=== PATIENT | female | born 1945 | race Two or more races ===

== ENCOUNTER 2024-03-03 09:29 | Inpatient (IN) | payer OTHER, SELFPAY ==
[2024-03-03] VITALS (11 sets, daily range): BP systolic 113–194; BP diastolic 68–91; BMI 23.0; BMI 21.9
[2024-03-03 07:30] LABS: Glucose - Point of Care 141 mg/dl (70-99)
--- NOTE | 2024-03-03 07:42 | ED.CVA ---
History of Present Illness
General
Chief Complaint: CVA/TIA Symptoms
Source: patient, spouse and family (son)
Exam Limitations: none
Time Seen by Provider: 03/03/24 07:40
Nursing documentation reviewed up to this point in time: agreed with
Onset of Stroke Symptoms
Onset of symptoms known: Yes
Date of onset of symptoms: 03/03/24
Date last time pt seen normal: 03/02/24
History of Present Illness
History of Present Illness:
78-year-old female presents emergency department after being unable to get out of bed. She woke up at 6:45 AM, with left-sided weakness and family reporting slurred speech. She does not take any blood thinners.
Past History
Past History
ED Past Medical History: HTN, Hypercholesterolemia and NIDDM
ED Past Surgical History: and Orthopedic (Laminectomy)
Social History
Tobacco: Non-smoker
Alcohol: None
Drug: None
Personal:
Living: with family
Review of Systems
Review of Systems
Allergies reviewed?: Yes
All Other Systems: Not applicable
Constitutional: Reports no symptoms
Phy Exam
Physical Exam
Physical Exam:
Physical Exam
General: no apparent distress, not acutely ill
Neck: supple. no meningeal signs. normal posterior pharynx
Heart: s1/s2 regular rate and rhythm, no murmur. equal radial
pulses.
HEENT: Pupils equal round reactive to light, EOMI, left facial droop
Lungs: no acute respiratory distress. clear bilaterally
Abdomen: normal bowel sounds. not tender. no CVAT
Neuro: alert and oriented. no focal neurological deficits cranial nerves II through XII intact, except left facial droop, 7th cranial nerve deficit
Skin: no rash
Psychiatric: well kept. interactive and cooperative
Extremities: no edema. no calf tenderness. negative homans. good distal pulses
Scores
NIH Stroke Score
Level of Consciousness: 0 - Alert
LOC Questions: 0-Answers both correctly
LOC Commands: 0-Performs both correctly
Best Horizontal Gaze: 0-Normal
Visual Scott: 0=Normal, no visual loss
Facial Palsy: 2=Partial paralysis
Motor - Right Arm: 0=No drift 10 seconds
Motor - Left Arm: 1=Drift < 10 seconds
Motor - Right Le-No drift 5 seconds
Motor - Left Le-Drift < 5 seconds
Limb Ataxia: 0-Absent
Sensation: 0-Normal
Best Language: 0-No aphasia
Dysarthria: 1-Mild slurring
Extinction and Inattention: 0-No abnormality
Total Score:: 5
Course
Orders/Labs/Results
Orders:
Orders
03/03/24 07:30
CT Head W/o Cont STROKE ALERT Urgent
Reason For Exam: stroke alert
03/03/24 07:40
CT Head/Neck Ang STROKE ALERT Urgent
Comment:
Reason For Exam: left facial droop left side weakness
Cardiac Monitoring- Treatment ONCE
IV Insert/Care/Rem.- Treatment PRN
Pulse Ox/cont/shift [RESP] Stat
Quantity: 1
03/03/24 07:41
Electrocardiogram (*1) Stat
Reason for Study: Other
Other Reason for Exam: neuro symptoms
EKG- Treatment ONCE
03/03/24 08:01
Complete Blood Count/With Diff Urgent
Comprehensive Metabolic Panel Urgent
PTT Urgent
Prothrombin Time Urgent
03/03/24 08:18
Aspirin Chewable [Low Strength Aspirin] 324 mg PO NOW STA
Clopidogrel Bisulfate [Plavix] 300 mg PO NOW STA
03/03/24 08:35
Admit/Transfer Patient As Directed
Co-Sign Provider:
Level of Care: Inpatient admission
Assign to:: Telemetry
Physician / Group: Hospitalist
Diagnosis: CVA
Reason for Telemetry: CVA/TIA
Date to Stop Telemetry: 03/06/24
Time to Stop Telemetry: 11:00
Reason for Hospitalization: .
Expected length of stay greater than two midnights?: Yes
ELOS- Estimated Length of Stay in days: 3
I certify the patient meets the requirements for IP care: Yes
03/03/24 08:36
Code Status As Directed
Resuscitation Status: Full Code
03/03/24 10:51
Consult Neurology [NEUROLOGY CONSULT] Routine
Consulting Provider: Tommy Posey
Was physician already notified: Yes
Reason for consult: CVA
Speech Therapy Eval & Treat Routine
DX Deep Vein Thrombosis Video Routine
03/03/24 20:00
Heparin 5,000 units SC Q12
03/04/24 06:00
Ot Eval And Treat IN AM
Pt Eval And Treat IN AM
Activity Level: Ambulate
03/06/24 11:00
DC Protocol for Telemetry ONCE
Abnormal Lab Results
03/03/24 03/03/24 03/03/24
07:29 08:01 08:03
Hct 35.1 L %
(37.0-47.0)
MPV 11.1 H fL
(7.4-10.4)
Glucose 127 H mg/dl
(70-99)
POC Glucose 141 H mg/dl 137 H mg/dl
(70-99) (70-99)
03/03/24 08:01
03/03/24 08:01
Vital Signs
Initial and Last Documented VS:
Initial Vital Signs
Pulse Resp BP Pulse Ox
67 17 181/91 97
03/03/24 07:30 03/03/24 07:30 03/03/24 07:30 03/03/24 07:30
Last Documented Vital Signs
Temp Pulse Resp BP Pulse Ox
97.5 F 79 18 156/72 99
03/03/24 14:55 03/03/24 14:55 03/03/24 14:55 03/03/24 14:55 03/03/24 14:55
MDM/Problems Addressed
Differential Diagnosis Includes:
CVA, TIA, intracranial hemorrhage
MDM/Problems Addressed:
78-year-old female seen on stroke alert, symptoms resolved. Patient seen by Dr. Posey, who recommends aspirin and Plavix treatment. Admit to hospitalist for further workup.
Chronic conditions affecting care: DM and HTN
Acute Exacerbation and/or Progression of Chronic Illness: DM and HTN
*Radiology
Radiology exam reviewed: radiology read reviewed (CT head and angiography, no acute findings)
*Pulse Oximetry
Patient hypoxic: no
*EKG
Interpreted by ED Provider?: Yes
EKG Intrepretation Date: 03/03/24
EKG Intrepretation Time: 08:12
Interpretation: normal
Comparison EKG: no comparison EKG present
Heart Rate: 67
Rate: normal
Rhythm: sinus
Freeman: normal axis
Interval: normal interval
QRS Pattern: normal QRS
Ischemia: no ischemia
*Wax Machine Operator Interpretation
Rate: normal
Interpretation: normal
Heart Rate: 66
Rhythm: sinus
*Critical Care Note
Total Time (30-74mins, 75-104mins- exclusive of procedures): 30
comment:
Critical care statement: A total of 30 minutes of critical care time was provided for this patient. This includes management of unstable vital signs, evaluation of the patient at bedside, reviewing the patient's pertinent medical records, discussion
with consultants, review of old EKGs and review of pertinent medical records. This time with separate from time utilized to perform the aforementioned documented procedures
Data Reviewed
Prescriptions/Medications Considered But Not Given:
TNK not indicated
Patient Management
Social determinants of health affecting care: Living situation
Discussion with other providers: Family Reunification Specialist (Neurology)
Escalation/DeEscalation of care consider admission/obs:
Admit not indicated
ED Attending Note
-
Portions of this chart may have been created with voice recognition software.� Occasional wrong word or��sound alike� substitutions may have occurred due to the inherent limitations of voice recognition software.
Discharge Plan
Departure
Patient Disposition: Admit
Date of Disposition: 03/03/24
Time of Disposition: :23
Admit to: Telemetry
Presentation/result/management discussed w/ accepting MD/DO: Hospitalist
Patient with high blood pressure during this ER visit?: Yes
Condition: Good
Discharge Problem:
TIA (transient ischemic attack)
Interventions
Interventions:
*Risk Screen - Suicide Last Done: 03/03/24 08:07
*General Assessment Last Done: 03/03/24 08:07
*Neglect/Abuse Screening Last Done: 03/03/24 08:07
ED- Fall Risk Assessment Last Done: 03/03/24 10:38
*ED COVID-19 Vaccine History Last Done: 03/03/24 08:07
*Nursing Disposition Last Done: 03/03/24 10:38
ED- Pulmonary Assessment Last Done: 03/03/24 08:11
ED- Neurological Assessment Last Done: 03/03/24 08:11
ED- Cardiac Assessment Last Done: 03/03/24 08:11
ED Swallowing Screen Last Done: 03/03/24 08:24
Discharge Date and Time
Discharge Date/Time: 03/03/24 10:39
[2024-03-03 08:09] LABS: Glucose - Point of Care 137 mg/dl (70-99)
[2024-03-03 08:11] LABS: % Basophils 0.2 % (0-2); % Eosinophils 1.6 % (0-6); % Immature Granulocytes 0.2 % (0-0.5); % Lymphocytes 36.4 % (20.5-51.1); % Monocytes 8.4 % (1.7-9.3); % Neutrophils 53.2 % (42.2-75.2); Absolute Eosinophils 0.1 10^3/uL (0-0.7); Absolute Lymphocytes 2.3 10^3/uL (1.2-3.4); Absolute Monocytes 0.5 10^3/uL (0.1-0.6); Absolute Neutrophils 3.4 10^3/uL (1.4-6.5); Hematocrit 35.1 % (37.0-47.0); Mean Corp Hgb Conc. 34.2 g/dL (33.0-37.0); Mean Corpuscular Hgb 28.6 pg (27.0-31.0); Mean Corpuscular Volume 83.6 fL (81.0-99.0); Mean Platelet Volume 11.1 fL (7.4-10.4); Nucleated Red Blood Cells % 0 %; Platelet Count 190 10^3/uL (130-400); Red Cell Dist. Width 13.1 % (11.5-14.5); White Blood Cell Count 6.3 10^3/uL (4.8-10.8)
[2024-03-03 08:21] LABS: INR 1.02; PT 13.2 Sec (11.4-14.6)
[2024-03-03 08:22] LABS: APTT 31.8 Sec (23.4-35.0)
[2024-03-03 08:24] LABS: ALT (SGPT) 13 U/L (0-35); AST (SGOT) 21 U/L (14-36); Alkaline Phosphatase 50 U/L (38-126); Blood Urea Nitrogen 17 mg/dl (7-17); Carbon Dioxide 29 mmol/L (22-30); Chloride 102 mmol/L (98-107); Estimated Creatinine Clearance 36 ml/min; Glucose 127 mg/dl (70-99); Potassium 4.3 mmol/L (3.5-5.1); Sodium 138 mmol/L (135-145); Total Bilirubin 0.3 mg/dl (0.2-1.3); Total Protein 6.7 g/dl (6.3-8.2); eGFR 58.02
[2024-03-03] MEDS: LOW STRENGTH ASPIRIN 324 MG PO (08:29)
[2024-03-03] MEDS: PLAVIX 300 MG PO (08:29)
--- NOTE | 2024-03-03 08:35 | HPS.HSE ---
Family Physician
-
Family Physician:
Chief Complaint
-
left sided weakness
History of Present Illness
78 years old female who woke up this morning with left-sided weakness. She experienced the weakness in the arm and the leg. She had difficulty ambulating. Her immediately gave her 4 tablets of aspirin 81 mg. She was brought into the
hospital. Scan of the head did not show acute finding. She was evaluated by neurologist and her symptoms subsided and was given loading dose of aspirin and Plavix. Neurologist recommended MRI of the head.
Patient was feeling fine yesterday before sleep. No headache. No fever or chills. She takes baby aspirin daily.
Medical History
Past Medical History
Past Medical History: Reports Other (Diabetes, depression, generalized anxiety disorder, hyperlipidemia, hypertension, back pain status post-laminectomy, chronic kidney disease stage II)
Past Surgical History: Reports Other (No recent major surgery)
Social History
Tobacco: Non-smoker
Drug: None
Personal:
Living: With Family
Employment: Not Employed
Family History
Family History: Not pertinent
Allergies / Home Medications
Allergies reflects when Allergies were last updated in [facility].
Home Medications with original date entered in [facility]
Allergy/Medication List:
Allergies
Allergy/AdvReac Type Severity Reaction Status Date / Time
No Known Allergies Allergy Unverified 03/03/24 07:29
Review of Systems
-
History Source: Patient
A 12 point ROS was completed and negative except as noted: Yes
Constitutional: Denies Fever or Chills
EENT: Denies Sore Throat
Respiratory: Denies Cough
Cardiac: Denies Chest Pain
Abdomen/GI: Denies Abdominal Pain
: Denies Dysuria
Musculoskeletal: Denies Joint Pain
Skin: Denies Itching
Neurological: Denies Headache
Endocrine: Denies Temp Intolerance
Hematologic/Lymphatic: Denies Bruising
Psych: Denies Panic Disorder
Physical Exam
Vital Signs
Vital Signs
Pulse Resp BP Pulse Ox
70 16 183/81 98
03/03/24 08:07 03/03/24 08:07 03/03/24 08:07 03/03/24 08:11
Physical Exam
General: Well Nourished, No Apparent Distress and Comfortable
HEENT: Anicteric, Moist mucous membranes and Atraumatic
Respiratory: Clear
Cardiac: S1/S2 and Regular Rhythm
GI: Soft and Non Tender
Rectal: No Maroon Stools
Genito-urinary: Clear Urine and No costovertebral tender
Musculoskeletal: No Clubbing, No Cyanosis and No Edema
Neuro: AO x 3; No Slurred Speech, Facial Droop or Tremors
Psych: Calm and Intact Judgment/Insight
Laboratory Results
-
03/03/24 08:01
03/03/24 08:01
Laboratory Results
PT 13.2 Sec (11.4-14.6) 03/03/24 08:01
INR 1.02 03/03/24 08:01
APTT 31.8 Sec (23.4-35.0) 03/03/24 08:01
Total Bilirubin 0.3 mg/dl (0.2-1.3) 03/03/24 08:01
AST 21 U/L (14-36) 03/03/24 08:01
ALT 13 U/L (0-35) 03/03/24 08:01
Alkaline Phosphatase 50 U/L (38-126) 03/03/24 08:01
Impression/Plan
-
78 years old female presented with left-sided weakness
# Left-sided weakness. Patient woke up with left-sided weakness, unknown duration
Symptoms seems to resolve
Admit the patient to telemetry
Discussed with neurologist, no indication for thrombolytic, continue with dual antiplatelet therapy, follow-up with MRI study
Order MRI
Order echocardiogram
Neurochecks
Permissive hypertension for 24-hour
Check lipid panel, starting on Lipitor. She takes simvastatin at home
Telemetry monitoring
Consult to speech/PT/OT
Appreciate neurology input
# Primary hypertension
Patient takes atenolol at home.
Will add as needed hydralazine for systolic blood pressure more than 180. Permissive hypertension for 24 hours
# Diabetes. She takes metformin and Invokana.
Will continue with metformin. Check hemoglobin A1c
Add insulin sliding scale
# History of depression/anxiety
Continue with Risperdal, 1 mg at night. Her son is pharmacist, reviewed medications with him
Continue with Zoloft
# History of chronic kidney disease stage II
Monitor renal function
# DVT prophylaxis, subcu heparin
Total time spent to see the patient, examine the patient, review data and lab results, and discuss the treatment plan with patient, family, neurologist, ER doctor, and nurse around 75 minutes
--- NOTE | 2024-03-03 10:24 | CON.NEURO4 ---
Consultation - Neurology 4
-
CONSULTING PHYSICIAN: Tommy Posey MD (Neurology)
REFERRING PHYSICIAN: Hospitalist
DICTATED BY: Tommy Posey MD
DATE/TIME OF REQUEST: March 03, 2024
DATE/TIME OF CONSULTATION: March 03, 2024 0830
Reason for Consultation: Left-sided weakness
History of Present Illness:
This is a 78 year old right handed female who has presented to the hospital with (chief complaint) left-sided weakness. Patient's symptoms began when she woke up (time) ago, and had left-sided weakness arm and her leg. She had difficulty sitting
and standing up. Her gave her 4 tablets of aspirin 81 mg. At the time of arrival she had left-sided weakness of the left arm and left leg that was resolving.
She was asymptomatic the night before.
No history of falls or head injuries no loss conscious no seizures. No difficulty speaking swallowing.
Past Medical History: Hypertension non-insulin diabetes hypercholesterolemia
Surgical History: lumbar laminectomy
Family History: Noncontributory
Social History: Lives at home with her son does not smoke use alcohol
Allergies: None
Home Medications: Aspirin
Review of Symptoms:
Patient denies any fever, headache, chest pain, shortness of breath, GI or symptoms.
�Per the HPI.�All systems are reviewed negative except above.
�
Vital Signs:
The patient has a Pulse 63 Resp15 BP 187/91 Pulse Ox98
Physical Exam:
The patient is afebrile, heart sounds S1 and S2 are (regular / irregular), and chest is clear to auscultation bilaterally.
NIH Stroke Scale (if applicable):
I performed the NIH stroke scale on the patient in the emergency room. The patient scored ( 4 ) points on the NIH stroke scale assessment, which were assigned as follows:
Neurologic Examination:
The patient is awake, alert and oriented x 3. (He/She) is able to follow commands and answer questions appropriately. There is no aphasia or dysarthria. On cranial nerve assessment, pupils are 3 mm bilateral, round and reactive to light and
accommodation. Visual wilkinson are full. Extraocular movements are intact. Facial sensations are intact and bilaterally symmetrical, there is no facial asymmetry. Hearing is intact bilaterally to normal conversation volume. Tongue palate and uvula
are midline. Sternocleidomastoid strengths are full bilaterally.
Motor strengths are 5/5 bilateral upper and lower extremities on medical research Saxman scale. There is LEFT pronator drift or involuntary movement noted. Deep tendon reflexes are 2+ bilateral upper and lower extremities and Babinski is absent
bilaterally. Sensations of pain, touch, temperature and vibration are intact and bilaterally symmetrical. There was no extinction noted on double simultaneous stimulation. Coordination is intact by finger to nose bilaterally. Romberg's and gait
were not tested as patient is bedbound
Lab Results: Addendum
Neuro Imaging: CT head shows normal pressure hydrocephalus. No acute lesions. Small vessel disease. Mild cortical atrophy
Impression:
Mrs. ATUL GILLETTE is a 78 year old F who has presented to the hospital with chief complaint of left-sided weakness).
Patient has the following risk factors for their symptoms: Hypertension diabetes
IV Tenecteplase/IAT candidacy: She is not a candidate as her symptoms are resolving, woke up with left sided weakness with unknown time of onset
Recommendations:
1. Aspirin 300 mg additional dose followed by daily aspirin 81 mg
2. Plavix 300 mg followed by daily Plavix 75 mg
3. Permissive hypertension
4. MRI head
5. PT/OT
6. Echocardiogram
7. Lipid profile
8. Lipitor 80 mg
Discussed patient care with: ED and hospitalist
Total Time Spent with Patient (in minutes): 30
Vital Signs and Labs
-
Vital Signs and Labs:
Vital Signs
Pulse Resp BP Pulse Ox
63 15 187/91 98
03/03/24 10:00 03/03/24 10:00 03/03/24 10:00 03/03/24 08:11
Lab Results
03/03/24 08:01
03/03/24 08:01
PT 13.2 Sec (11.4-14.6) 03/03/24 08:01
INR 1.02 03/03/24 08:01
APTT 31.8 Sec (23.4-35.0) 03/03/24 08:01
Sodium 138 mmol/L (135-145) 03/03/24 08:01
Potassium 4.3 mmol/L (3.5-5.1) 03/03/24 08:01
BUN 17 mg/dl (7-17) 03/03/24 08:01
Glucose 127 mg/dl (70-99) H 03/03/24 08:01
Calcium 10.0 mg/dl (8.4-10.2) 03/03/24 08:01
--- NOTE | 2024-03-03 14:00 | PTOTSP ---
ST Acute Care Evaluation
Pt currently presents with mild oropharyngeal and esophageal dysphagia characterized by reduced strength and sensation on L labial and buccal surfaces resulting in oral residue requiring prompts and compensatory strategies to clear as well as 1x
throat clearing event that could be indicative of reduced airway protection and 1x belching event that could indicate esophageal dysfunction.
Pt also demonstrates mild to moderate dysarthria. Pt denies any difficulties with receptive language, expressive language, or cognition - these areas should be continually monitored and assessed informally if needed.
Recommendations:
- Continue with regular solids, thin liquids, meds as tolerated.
- Aspiration precautions: HOB upright for ALL PO intake; small bites/sips; make pt aware of any labial spillage on L side; check for pocketing/oral clearance of L buccal cavity; encourage pt to use lingual sweep or liquid wash intermittently with
solid ingestion.
- ETL DEVELOPER to provide dysarthria tx while admitted.
- ETL DEVELOPER to monitored cognitive linguistic status and informally assess if needed.
- Pt to continue to receive ETL DEVELOPER services upon d/c at next level of care.
[2024-03-03] MEDS: TYLENOL 1000 MG PO (14:55)
[2024-03-03 17:25] LABS: Glucose - Point of Care 164 mg/dl (70-99)
[2024-03-03] MEDS: LIPITOR 40 MG PO (18:20)
[2024-03-03] MEDS: GLUCOPHAGE 1000 MG PO (18:21)
[2024-03-03] MEDS: NOVOLOG FLEXPEN-MODERATE RESISTANCE SC ×2 (18:21→18:23)
[2024-03-03] MEDS: TENORMIN 50 MG PO (20:26)
[2024-03-03] MEDS: ZOLOFT 50 MG PO (20:26)
[2024-03-03] MEDS: RISPERDAL 1 MG PO (20:27)
[2024-03-03] MEDS: HEPARIN 5000 UNITS SC (20:27)
[2024-03-03 21:05] LABS: Glucose - Point of Care 198 mg/dl (70-99)
[2024-03-04] VITALS (8 sets, daily range): BP systolic 134–195; BP diastolic 73–103; PULSE 77–80; O2SAT 100
[2024-03-04 07:44] LABS: Glucose - Point of Care 165 mg/dl (70-99)
[2024-03-04 08:14] LABS: Hematocrit 37.6 % (37.0-47.0); Hemoglobin 12.7 g/dL (12.0-16.0); Mean Corp Hgb Conc. 33.8 g/dL (33.0-37.0); Mean Corpuscular Hgb 28.2 pg (27.0-31.0); Mean Corpuscular Volume 83.6 fL (81.0-99.0); Mean Platelet Volume 10.8 fL (7.4-10.4); Platelet Count 184 10^3/uL (130-400); Red Cell Dist. Width 13.1 % (11.5-14.5); White Blood Cell Count 6.2 10^3/uL (4.8-10.8)
--- NOTE | 2024-03-04 08:30 | W.PN.NEURO.1 ---
Addendum entered and electronically signed by Kalpesh Person MD 03/04/24 13:22:
I saw and evaluated the patient I reviewed the note by Jennifer Chahal agree with the findings the following comments:
78-year-old woman with a past ministry of hypertension hyperlipidemia and diabetes presented to hospital with left-sided weakness dysarthria upon awakening. No acute events. Patient tired but with no acute complaints.
Neurologic examination significant for mild drowsiness, left facial droop and significant dysarthria, left arm weakness 3/5 left leg weakness 3/5
Brain MRI reviewed with a right-sided ischemic pontine stroke along with 2 areas of microhemorrhage in the tereso and cerebellar areas, moderate small vessel ischemic disease in the white matter of the hemispheres bilaterally
No significant posterior circulation atherosclerosis in the vertebral or basilar arteries noted
Assessment: Acute ischemic pontine stroke producing dysarthria left facial weakness left arm and leg weakness most likely due to small vessel disease given absence of significant large vessel atherosclerosis on CTA of the head and neck in
characteristic location disease ischemic stroke. Risk factors are hypertension hyperlipidemia and diabetes, moderate to good control of these but nonetheless are still risks for stroke.
Recommendations
-DAPT therapy aspirin and clopidogrel for total of 3 weeks and then switch to clopidogrel monotherapy
-Would increase the intensity of her statin a small amount, for home she could go home on 20 mg simvastatin. For now okay to continue on atorvastatin 40 mg daily while in hospital
-Speech therapy evaluation given dysarthria and possibly dysphagia although tolerating thin liquid diet
-PT/OT likely acute rehabilitation candidate
-Cardiac telemetry and check transthoracic echocardiogram
-Discussed discovery and prognosis with her and her family
-Goal normotension
-Aspiration precautions
Original Note:
Documented by User: Jennifer Liu NP 03/04/24 13:10
Today's Communication / Plan
-
.
Neuro Assessment/Plan
Assessment
This is a 78-year-old female who presented to on 03/03/24 with report of left-sided weakness and dysarthria upon awakening. CT head and CTA head/neck were obtained on arrival and were negative for any acute abnormalities. She was not a candidate
for TNK/IAT due to being outside of the time window and no LVO. She was taking aspirin 81mg daily.
-CT Head 03/03/24: There are no acute intracranial abnormalities. There is moderate diffuse cortical atrophy with moderate nonspecific white matter changes as described above.
-CTA head/neck 03/03/24: There is no evidence of major intracranial branch occlusion or significant stenosis in the major intracranial vessels. There is small volume partially calcific atherosclerotic plaque in the right common carotid artery, both
carotid bifurcations and the cavernous portions of both internal carotid arteries without significant stenosis
-MRI brain 03/04/24: Focal area of acute to subacute infarction involving the right anterolateral and superior tereso. Moderate diffuse atrophy. Moderate leukomalacia. 3 small foci of decreased T2 gradient-echo signal identified, one in the right
cerebellar hemisphere and 2 in the left side of the tereso. 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
I. Acute right pontine ischemic stroke; etiology likely small vessel disease.
II. Three small right cerebellar and left pontine foci of old microhemorrhage.
Plan
-Continue DAPT with aspirin 81mg and Plavix 75mg daily for 21 days. After 21 days, discontinue aspirin and continue Plavix 75mg daily only, indefinitely.
-Goal normotension as it is greater than 24 hours from symptom onset.
-TTE pending.
-LDL goal <70. LDL is 52. Home simvastatin 10mg daily increased to atorvastatin 40mg daily, unclear if this is of benefit as patient's LDL is at goal.
-Goal normoglycemia, hbA1c is 7.1.
-NIHSS and neurological checks per unit guidelines.
-Provide patient with a stroke education packet.
-PT/OT/ST evaluations.
-DVT prophylaxis.
-Patient should follow-up with Neurology as an outpatient in 4-6 weeks, may see the [facility] or one of the physicians.
Subjective/Objective
Subjective Data
Date of Service: March 04, 2024
No acute events overnight. Patient endorses ongoing left-sided weakness, mild tingling in her LLE, fatigue, and her endorses a speech disturbance. She denies any headache, dizziness, speech/swallowing difficulty, nausea, chest pain,
palpitations, and shortness of breath.
Objective Data
Vital Signs
Temp Pulse Resp BP Pulse Ox
97.7 F 75 16 186/95 98
03/04/24 07:00 03/04/24 07:00 03/04/24 07:00 03/04/24 07:00 03/04/24 07:00
Lab Results
03/04/24 07:51
PT 13.2 Sec (11.4-14.6) 03/03/24 08:01
INR 1.02 03/03/24 08:01
APTT 31.8 Sec (23.4-35.0) 03/03/24 08:01
Sodium 138 mmol/L (135-145) 03/03/24 08:01
Potassium 4.3 mmol/L (3.5-5.1) 03/03/24 08:01
BUN 17 mg/dl (7-17) 03/03/24 08:01
Glucose 127 mg/dl (70-99) H 03/03/24 08:01
Calcium 10.0 mg/dl (8.4-10.2) 03/03/24 08:01
Patient Allergies
No Known Allergies Allergy (Unverified 03/03/24 07:29)
LDL Level: Statin dose adjusted
Review of Systems
-
History Source: Patient
EENT: Negative Blurry Vision, Decreased Vision or Swallowing Difficulty
Respiratory: Negative Cough or Trouble Breathing
Cardiac: Negative Chest Pain or Palpitations
Abdomen/GI: Negative Nausea
Neuro: Weakness, Numbness and Speech Problem; Negative Dizzy, Headache, Ataxia or Tremors
Physical Exam
-
General: Well Developed, Well Nourished and No Apparent Distress
Eyes: No Ptosis and PERRLA
HEENT: Normocephalic and Atraumatic
Neck: Full Range of Motion
Respiratory: No Dyspnea
GI: Non-distended
Extremities: No Clubbing, No Cyanosis and No Edema
Psych: Depressed
Extended Neurological Exam
Mood & Affect: Depressed
Attention Span & Concentration: Awake, Alert and Interactive
Memory: Unremarkable (AAOx3) and Able to Recall
Tremor: Hand Tremor Absent and Head Tremor Absent
Involuntary Movement: None
Speech: Dysarthric
Cranial Nerve II: Left Eye: Pupillary Reactivity Unremarkable, Pupillary Size Unremarkable and Visual Scott Intact
Cranial Nerve II: Right Eye: Pupillary Reactivity Unremarkable, Pupillary Size Unremarkable and Visual Scott Intact
Cranial Nerves III, IV, : Extraocular Movement: Extraocular Movement Full in all Directions
Cranial Nerve V: Facial Sensation: Intact to Light Touch
Cranial Nerve VII: Facial Symmetry: Reduced (Left facial drooping)
Cranial Nerve VIII: Hearing: Unremarkable Hearing to Normal Conversational Volume
Cranial Nerves IX, X: Palate Movement: Palate Elevation Symmetric
Cranial Nerve XI: Shoulder Shrug: Unremarkable
Cranial Nerve XII: Tongue Protusion: Midline
Muscle Strength, Overall: Reduced on Left (LUE 3-/5, LLE 2+/5)
Muscle Bulk & Tone: Bulk Unremarkable and Reduced Tone (LUE)
Pronator Drift: Drift in Left Upper Extremity and Drift in Left Lower Extremity
Touch Sensation: Double Simultaneous Stimulation Unremarkable
Coordination: [id number] Testing Unremarkable
Babinski Sign: Absent Bilaterally
Gait & Station: Unable to Assess
Data Reviewed
-
CT-A: Report Reviewed and Image Reviewed
CT Head: Report Reviewed and Image Reviewed
MRI Head: Report Reviewed and Image Reviewed
Labs: Report Reviewed
Lipid Profile: Report Reviewed
HgbA1C: Report Reviewed
Reviewed with: Physician and Patient
Medications
-
Active Medications
Generic Name Dose Route Start Last Admin
Trade Name Freq PRN Reason Stop Dose Admin
Acetaminophen 1,000 mg 03/03/24 12:41 03/03/24 14:55
Acetaminophen 500 Mg Tablet PO 03/31/24 12:40 1,000 mg
Q6HPRN PRN Administration
mild to mod pain
Aspirin 81 mg 03/04/24 08:00
Aspirin 81 Mg Chewable Tablet PO 04/01/24 07:59
DAILY RIVKA
Atenolol 50 mg 03/03/24 22:00 03/03/24 20:26
Atenolol 50 Mg Tablet PO 03/31/24 21:59 50 mg
HS RIVKA Administration
Atorvastatin Calcium 40 mg 03/03/24 18:00 03/03/24 18:20
Atorvastatin (Lipitor) 40 Mg Tablet PO 03/31/24 17:59 40 mg
QPM RIVKA Administration
Clopidogrel Bisulfate 75 mg 03/04/24 08:00
Clopidogrel 75 Mg Tablet PO 04/01/24 07:59
DAILY RIVKA
Dextrose 12.5 grams 03/03/24 12:39
Dextrose 50% (0.5 Grams/Ml) 50 Ml Syringe IV 03/31/24 12:38
[id number] PRN
hypoglycemia
Protocol
Glucagon 1 mg 03/03/24 12:39
Glucagon 1 Mg Vial IM 03/31/24 12:38
PRN PRN
hypoglycemia
Protocol
Heparin Sodium 5,000 units 03/03/24 20:00 03/03/24 20:27
Heparin 5,000 Units/Ml 1 Ml Vial SC 03/31/24 19:59 5,000 units
Q12 RIVKA Administration
Hydralazine HCl 5 mg 03/03/24 11:53
Hydralazine 20 Mg/Ml Vial IV 03/31/24 11:52
Q6HPRN PRN
sbp more than 180
Insulin Aspart 0 units 03/03/24 16:30 03/03/24 18:23
Insulin Aspart Moderate Resistance 300 Units/3 Ml Pen.Injctr SC 03/31/24 16:29 Not Given
AC RIVKA
Protocol
Lorazepam 1 mg 03/03/24 14:49
Lorazepam 2 Mg/Ml Vial IV 03/31/24 14:48
DAILYPRN PRN
MRI testing
Metformin HCl 1,000 mg 03/03/24 17:00 03/03/24 18:21
Metformin 1000 Mg Regular Release Tablet PO 03/31/24 16:59 1,000 mg
BID@0800,1700 RIVKA Administration
Risperidone 1 mg 03/03/24 22:00 03/03/24 20:27
Risperidone 1 Mg Tablet PO 03/31/24 21:59 1 mg
HS RIVKA Administration
Sertraline HCl 50 mg 03/03/24 22:00 03/03/24 20:26
Sertraline 50 Mg Tablet PO 03/31/24 21:59 50 mg
HS RIVKA Administration
Sodium Chloride 0 flush 03/03/24 13:00
Sodium Chloride 0.9% (Flush) Syringe IV 03/31/24 12:59
PER PROTOCOL RIVKA
Home Medications
�Medication �Instructions �Recorded
aspirin 81 mg tablet,delayed 81 mg PO QPM 03/03/24
release
atenolol 50 mg tablet 50 mg PO DAILY 03/03/24
calcium carbonate 500 mg PO DAILY 03/03/24
canagliflozin 100 mg tablet 100 mg PO DAILY 03/03/24
(Invokana)
cholecalciferol (vitamin D3) 25 25 mcg PO DAILY 03/03/24
mcg (1,000 unit) tablet (Vitamin
D3)
ferrous sulfate 325 mg (65 mg 325 mg PO DAILY 03/03/24
iron) tablet
metformin 1,000 mg tablet 1,000 mg PO BID 03/03/24
risperidone 1 mg tablet (Risperdal) 1 mg PO HS 03/03/24
sertraline 50 mg tablet 50 mg PO DAILY 03/03/24
simvastatin 10 mg tablet (Zocor) 10 mg PO HS 03/03/24
NIH Stroke Score
Subsequent NIH Scale
Date of Subsequent NIH Scale: 03/04/24
Time of Subsequent NIH Scale: 09:30
NIH Stroke Score
Level of Consciousness: 0 - Alert
LOC Questions: 0-Answers both correctly
LOC Commands: 0-Performs both correctly
Best Horizontal Gaze: 0-Normal
Visual Scott: 0=Normal, no visual loss
Facial Palsy: 1=Minor paralysis
Motor - Right Arm: 0=No drift 10 seconds
Motor - Left Arm: 2=Partial vs. gravity
Motor - Right Le-No drift 5 seconds
Motor - Left Le-Partial vs. gravity
Limb Ataxia: 0-Absent
Sensation: 0-Normal
Best Language: 0-No aphasia
Dysarthria: 1-Mild slurring
Extinction and Inattention: 0-No abnormality
Total Score:: 6
Modified Hartfield (mRS) Score
Modified Hartfield Scale (mRS): Moderately severe disability. Unable to attend to bodily needs/walk.
Score: 4

Documented by User: Kalpesh Person MD 03/04/24 13:19
NIH Stroke Score
NIH Stroke Score
Total Score:: 6
Modified Kiko (mRS) Score
Score: 4
[2024-03-04] MEDS: HEPARIN 5000 UNITS SC ×2 (08:53→20:30)
[2024-03-04] MEDS: PLAVIX 75 MG PO (08:53)
[2024-03-04] MEDS: LOW STRENGTH ASPIRIN 81 MG PO (08:53)
[2024-03-04] MEDS: GLUCOPHAGE 1000 MG PO ×2 (08:53→17:09)
[2024-03-04] MEDS: NOVOLOG FLEXPEN-MODERATE RESISTANCE 1 UNITS SC (09:08)
[2024-03-04 09:10] LABS: ALT (SGPT) 15 U/L (0-35); AST (SGOT) 20 U/L (14-36); Albumin 4.3 g/dl (3.5-5.0); Alkaline Phosphatase 55 U/L (38-126); Blood Urea Nitrogen 24 mg/dl (7-17); Calcium 10.7 mg/dl (8.4-10.2); Carbon Dioxide 27 mmol/L (22-30); Chloride 102 mmol/L (98-107); Estimated Creatinine Clearance 37 ml/min; Glucose 145 mg/dl (70-99); HDL Cholesterol 64 mg/dl; LDL Cholesterol, Calculated 52 mg/dl; Potassium 4.6 mmol/L (3.5-5.1); Sodium 137 mmol/L (135-145); Total Bilirubin 0.3 mg/dl (0.2-1.3); Total Cholesterol 147 mg/dl (50-199); Total Protein 7.2 g/dl (6.3-8.2); Triglyceride 155 mg/dl (10-149); Very Low Density Lipoprotein 31 mg/dl (0-30); eGFR 58.02
[2024-03-04 09:20] LABS: Glycohemoglobin (HgbA1c) 7.1 % (4.0-5.6)
[2024-03-04] MEDS: ATIVAN 1 MG IV (09:30)
[2024-03-04] MEDS: APRESOLINE 5 MG IV (11:38)
[2024-03-04 13:10] LABS: Glucose - Point of Care 107 mg/dl (70-99)
[2024-03-04] MEDS: NOVOLOG FLEXPEN-MODERATE RESISTANCE SC ×2 (13:12→17:00)
--- NOTE | 2024-03-04 13:29 | W.PN.HOSP.TC ---
Today's Communication/Plan
-
Monitor vital signs and see plan
PT/OT
MRI with stroke
Continue with aspirin, Plavix
neurology following
will need rehab likely
Assessment / Plan
Assessment / Plan
General: Well Nourished, No Apparent Distress and Comfortable
HEENT: Anicteric, Moist mucous membranes and Atraumatic
Respiratory: Clear
Cardiac: S1/S2 and Regular Rhythm
GI: Soft and Non Tender
Genito-urinary: Clear Urine and No costovertebral tender
Musculoskeletal: No Clubbing, No Cyanosis and No Edema
Neuro: AO x 3; No Slurred Speech, Facial Droop or Tremors
Psych: Calm and Intact Judgment/Insight
Left-sided weakness. Patient woke up with left-sided weakness, unknown duration
Symptoms seems to improving
MRI acute to subacute infarction involving the right anterolateral and superior tereso.
Neurology following
echocardiogram
Neurochecks
Continue atorvastatin
Telemetry monitoring
Consult to speech/PT/OT
Appreciate neurology input
# Primary hypertension
Patient takes atenolol at home.
Will add as needed hydralazine for systolic blood pressure more than 180. Permissive hypertension for 24 hours
# Diabetes. She takes metformin and Invokana.
Will continue with metformin. hemoglobin A1c 7.1
Add insulin sliding scale
# History of depression/anxiety
Continue with Risperdal, 1 mg at night. Her son is pharmacist, reviewed medications with him
Continue with Zoloft
# History of chronic kidney disease stage II
Monitor renal function
# DVT prophylaxis, subcu heparin
PT/OT
I spent a total of 52 minutes with the patient or on the floor. More than 50% of this time involved counseling and coordination of care.
Anticipated Discharge: Within 24 hours
Subjective/Interval History
-
Date of Service: March 04, 2024
denies pain
Objective Data
-
Labs:
Laboratory Results
03/04/24
07:51
WBC 6.2
Hgb 12.7
Hct 37.6
Plt Count 184
Sodium 137
Potassium 4.6
Chloride 102
Carbon Dioxide 27
BUN 24 H
Creatinine 1.0
Glucose 145 H
Calcium 10.7 H
Total Bilirubin 0.3
AST 20
ALT 15
Alkaline Phosphatase 55
Vital Signs:
Vital Signs
Temp Pulse Resp BP Pulse Ox
97.5 F 71 18 195/103 99
03/04/24 11:00 03/04/24 11:00 03/04/24 11:00 03/04/24 11:00 03/04/24 11:00
I&O
03/03/24 03/04/24 03/05/24
06:59 06:59 06:59
Intake Total 480 / 480
Balance 480 / 480
--- NOTE | 2024-03-04 15:52 | CM ---
Patient seen at bedside with patient also present. Patient states that they live in a one story home. Patient has a walker at home and previously did not have VN supports. Patient was at [facility] home previously after back surgery.
Patient stated that the PCP is Dr. Bailey and they used the [facility] in [place] for pharmacy needs. Patient stated that she wanted to work/talk better. Patient interested in referral to [facility] and [facility] sent tt to physician requesting
referral to [facility]. referral to be sent to [facility], [facility] sent TT to liaison at [facility] requesting her to review patient for possible acceptance. CM will continue to follow for discharge planning needs.
Plan; acute rehab.
[2024-03-04 16:56] LABS: Glucose - Point of Care 138 mg/dl (70-99)
[2024-03-04] MEDS: LIPITOR 40 MG PO (17:09)
--- NOTE | 2024-03-04 18:50 | PTCARENOTE ---
Clarifying permissive HTN from neuro's note in AM. Patient pressure 187/95, notified provider. Provider to talk with neuro regarding timing and parameters of permissive HTN. Patient later 195/103, provider notified, patient no longer permissive per
neurology, Hydralazine given. See MAR
[2024-03-04 19:50] LABS: Hepatitis C Antibody Negative (Negative)
[2024-03-04] MEDS: ZOLOFT 50 MG PO (20:30)
[2024-03-04] MEDS: RISPERDAL 1 MG PO (20:30)
[2024-03-04] MEDS: TENORMIN 50 MG PO (20:30)
[2024-03-04 20:48] LABS: Glucose - Point of Care 165 mg/dl (70-99)
[2024-03-05] VITALS (8 sets, daily range): BP systolic 105–168; BP diastolic 56–87; PULSE 78; O2SAT 99
[2024-03-05 07:26] LABS: Glucose - Point of Care 186 mg/dl (70-99)
[2024-03-05 07:38] LABS: % Basophils 0.1 % (0-2); % Eosinophils 1.2 % (0-6); % Immature Granulocytes 0.3 % (0-0.5); % Lymphocytes 27.3 % (20.5-51.1); % Monocytes 7.5 % (1.7-9.3); % Neutrophils 63.6 % (42.2-75.2); Absolute Eosinophils 0.1 10^3/uL (0-0.7); Absolute Lymphocytes 2.1 10^3/uL (1.2-3.4); Absolute Monocytes 0.6 10^3/uL (0.1-0.6); Absolute Neutrophils 4.8 10^3/uL (1.4-6.5); Hematocrit 35.5 % (37.0-47.0); Hemoglobin 12.1 g/dL (12.0-16.0); Mean Corp Hgb Conc. 34.1 g/dL (33.0-37.0); Mean Corpuscular Hgb 28.3 pg (27.0-31.0); Mean Corpuscular Volume 83.1 fL (81.0-99.0); Mean Platelet Volume 10.9 fL (7.4-10.4); Nucleated Red Blood Cells % 0 %; Platelet Count 176 10^3/uL (130-400); Red Blood Cell Count 4.27 10^6/uL (4.20-5.40); Red Cell Dist. Width 13.2 % (11.5-14.5); White Blood Cell Count 7.5 10^3/uL (4.8-10.8)
[2024-03-05 07:52] LABS: Blood Urea Nitrogen 25 mg/dl (7-17); Calcium 10.2 mg/dl (8.4-10.2); Carbon Dioxide 24 mmol/L (22-30); Chloride 103 mmol/L (98-107); Estimated Creatinine Clearance 41 ml/min; Glucose 160 mg/dl (70-99); Potassium 4.2 mmol/L (3.5-5.1); Sodium 136 mmol/L (135-145); eGFR > 60.00
[2024-03-05] MEDS: NOVOLOG FLEXPEN-MODERATE RESISTANCE 1 UNITS SC ×2 (08:32→17:40)
[2024-03-05] MEDS: PLAVIX 75 MG PO (08:33)
[2024-03-05] MEDS: LOW STRENGTH ASPIRIN 81 MG PO (08:33)
[2024-03-05] MEDS: GLUCOPHAGE 1000 MG PO ×2 (08:33→17:41)
[2024-03-05] MEDS: HEPARIN 5000 UNITS SC ×2 (08:34→20:46)
[2024-03-05] MEDS: TYLENOL 1000 MG PO (11:27)
[2024-03-05 11:50] LABS: Glucose - Point of Care 292 mg/dl (70-99)
[2024-03-05] MEDS: NOVOLOG FLEXPEN-MODERATE RESISTANCE 5 UNITS SC (11:53)
--- NOTE | 2024-03-05 12:16 | CM ---
Patient seen with , discussed CM awaiting to hear if [facility] is able to offer patient a bed. Patient will need insurance auth. PMR consult placed. CM will continue to follow for all discharge planning needs.
Plan; Acute Rehab, awaiting [facility] regarding bed availability, will need insurance auth.
--- NOTE | 2024-03-05 12:21 | PTCARENOTE ---
Physical therapy expressed concern that the patient is much weaker than on evaluation yesterday. In AM, patient's LLE weak, however, patient is just as weak as previous assessments. [facility] in AM 7. notified, asked to reach out to neurology,
neurology parts counter salesperson and [employer] notified via TT.
--- NOTE | 2024-03-05 12:22 | CON.MD ---
Documented by User: Debra Tan MD, Resident 03/05/24 14:31
Consultation - Medical
-
Referring Provider:Yao Joseph
Chief Complaint: Left sided weakness
History of Present Illness:
The patient is a 78 yo left handed female who was admitted to ER on 03/03/24 complaining from left sided weakness and slurred speech which started in the morning after she woke up. The patient has a PMH of hypertension hyperlipidemia and diabetes
(NIDDM).
Brain MRI showed a right-sided ischemic pontine stroke along with 2 areas of microhemorrhage in the tereso and cerebellar areas, moderate small vessel ischemic disease in the white matter of the hemispheres bilaterally. No significant posterior
circulation atherosclerosis in the vertebral or basilar arteries noted. The patient was seen in her room sitting in the chair with supervision of her . She was oriented time, place and person. Dysarthria and left side facial/body weaknesses
were observed. Patient denies difficulty with swallowing.
Past Medical History:hypertension hyperlipidemia and diabetes (NIDDM)
Procedure History: and Orthopedic (Laminectomy)
Family History: Noncontributory
Social History:
Tobacco: Denies
Alcohol: Denies
Drug use: Denies
Functional Level Premorbidly: Independent with all activities/ using a rolling walker
Functional Level Currently:Bed Mobility: Supine to sit -Moderate assistance / Sit to supine- Not tested /Rolling- Not tested, Transfers:-Sit to stand- Maximum
assistance/ Stand to sit- Maximum assistance/ Stand/pivot/sit- Maximum assistance
Lives with:family
24-hour assistance available:Yes
Number of floors:1
# steps to enter:0
# steps to second floor:0
Potential First floor set up:lives on first floor
Driving:No
Occupation:No
Allergies
Allergy/AdvReac Type Severity Reaction Status Date / Time
No Known Allergies Allergy Unverified 03/03/24 07:29
Home Medications
aspirin 81 mg tablet,delayed release 81 mg PO QPM 03/03/24
atenolol 50 mg tablet 50 mg PO DAILY 03/03/24
calcium carbonate 500 mg PO DAILY 03/03/24
canagliflozin 100 mg tablet (Invokana) 100 mg PO DAILY 03/03/24
cholecalciferol (vitamin D3) 25 mcg (1,000 unit) tablet (Vitamin D3) 25 mcg PO DAILY 03/03/24
ferrous sulfate 325 mg (65 mg iron) tablet 325 mg PO DAILY 03/03/24
metformin 1,000 mg tablet 1,000 mg PO BID 03/03/24
risperidone 1 mg tablet (Risperdal) 1 mg PO HS 03/03/24
sertraline 50 mg tablet 50 mg PO DAILY 03/03/24
simvastatin 10 mg tablet (Zocor) 10 mg PO HS 03/03/24
Review of Systems
History Source: Patient
EENT: Negative Blurry Vision, Decreased Vision or some difficulty with swallowing, dysatria
Respiratory: Negative Cough or Trouble Breathing
Cardiac: Negative Chest Pain or Palpitations
Abdomen/GI: Negative Nausea
Neuro: Weakness, Numbness and Speech Problem.
Vitals:
Vital Signs
Temp Pulse Resp BP Pulse Ox
97.4 F 114 20 168/87 99
03/05/24 11:36 03/05/24 11:36 03/05/24 11:36 03/05/24 11:36 03/05/24 11:36
Physical Exam:
General Appearance/Observation: Well-developed, well-nourished individual in no apparent stress
Attention Span & Concentration: Awake, Alert and Interactive
Memory: Unremarkable (AAOx3) and short memory is intact
Tremor: Hand Tremor Absent and Head Tremor Absent
Involuntary Movement: None
Speech: Dysarthria
Pain/Comfort Assessment: Denies
Mood: Depressed /Affect: Appropriate
Integumentary/Operative Site:None
Pressure Ulcer Evaluation: absent over heels.
Eyes: Conjunctiva/Lids: normal Pupils: pupils equal round and reactive to light and Accommodation
Ears/Nose/Throat: oral mucosa moist, throat clear. Lips/Teeth/Gums: normal
Neck: No muscle spasm or tenderness. Weakness on the left side.
Cardiovascular: Heart: regular, no murmur
Pulses: dorsalis pedis 2+ bilaterally
Respiratory: Respiratory Effort/Chest Expansion: normal Auscultation: Clear to
auscultation bilaterally
Gastrointestinal: abdomen not tender, no distension, normal abdominal bowel sounds
Genitourinary: No Perez
Rectal Exam: Deferred
Extremities: Edema: None Cyanosis: None Trophic changes: None
Neurology Exam:
Orientation: Alert, Oriented to self, Time, Place
Comprehension: Intact
Two step command: Intact
Naming: Intact
Cranial Nerves:
Cranial Nerve II: Left Eye: Pupillary Reactivity Unremarkable, Pupillary Size Unremarkable and Visual Scott Intact
Cranial Nerve II: Right Eye: Pupillary Reactivity Unremarkable, Pupillary Size Unremarkable and Visual Scott Intact
Cranial Nerves III, IV, : Extraocular Movement: Extraocular Movement Full in all Directions
Cranial Nerve V: Facial Sensation: Diminished sensation on the left side
Cranial Nerve VII: Facial asymmetry. Left side of the face has weakness
Cranial Nerve VIII: Hearing: Unremarkable Hearing to Normal Conversational Volume
Cranial Nerves IX, X: Palate Movement: Palate Elevation Symmetric
Cranial Nerve XI: Shoulder Shrug: weakness on the left side
Cranial Nerve XII: Tongue Protrusion: Midline
Light touch: Diminished sensation to light touch on the left side of the body and on the left side of the face
Reflexes:
Biceps: 2+ bilaterally
Brachioradialis: 2+ bilaterally
Triceps: 2+ bilaterally
Patellar: 2+ bilaterally
Achilles: 2+ bilaterally
Babinski: Going up on the left side
Clonus: None
Lacey: Negative bilaterally
Cerebellar: Dysmetria/Ataxia: Was not able to assessed due patient`s condition.
Musculoskeletal:
Motor: (Manual muscle scale 0-5) Motor examination was suboptimal due patient`s feeling tired and cognition status. She had difficulty to undestand the commands.
Muscle SA EF WE EE FF FA HF KE DF EHL PF
Right 5 5 5 5 5 5 5 5 5 5 5
Left 2 2 2 3 3 3 2 2 2 2 2
Tone: Normal in extremities on the right side, decreased tone on the left side
Range of Motion: Passively within normal limits in all extremities
Lab Results - Hematology
03/03/24 03/04/24 03/05/24
08:01 07:51 06:58
WBC 6.3 6.2 7.5
Lab Results - Chemistry
03/03/24 03/04/24 03/05/24
08:01 07:51 06:58
BUN 17 24 H 25 H
Creatinine 1.0 1.0 0.9
Estimated Creat Clear 36 37 41
Albumin 4.0 4.3
Diagnostic Results: as per HPI
Assessment
78 yo female, has a PMH of hypertension hyperlipidemia and diabetes (NIDDM) who was admitted to ER on 03/03/24 complaining from left sided weakness and slurred speech. Brain MRI reviewed a right-sided ischemic pontine stroke along with 2 areas of
microhemorrhage in the tereso and cerebellar areas, moderate small vessel ischemic disease in the white matter of the hemispheres bilaterally. Left sided weakness and left sided facial weakness were found on examination with significant dysarthria.
Patient denies difficulty with swallowing.
Right sided pontine CVA: continue aspirin/Plavix as recommended by Neurology daily, statin, continue PT/OT/ST. (SBP less than 180 and diastolic less than 100 to participate with therapy for ischemic stroke). Continue to monitor neurologic status.
Left dominant hemiparesis and neglect : High risk for falls and sliding out of chair/bed. Safety reinforced. - Avoid using affected arm to help lift or pull patient as this will cause trauma to the shoulder.
Left hemisensory loss with paresthesias: Patient must be careful not to burn herself on the left. She should not test temperatures with the left arm or leg. Makes her ability to use the left arm and leg more difficult.
-Can use gabapentin for paresthesias if necessary.
Dysarthria: speech therapy
HLD:statin
HT: Primary hypertension. Patient takes atenolol at home. Added lisinopril at hospitalization. Hydralazine as needed to control BP
Diabetes Mellitus: She takes metformin and Invokana. Will continue with metformin. hemoglobin A1c 7.1 Added insulin sliding scale. Management will be followed up by primary team.
History of depression/anxiety: Continue with Risperdal, 1 mg at night. Her son is pharmacist, reviewed medications with him Continue with. Psychology consult. Monitor mood, adjust medications as needed.
History of chronic kidney disease stage II: Monitor renal function
Bowel: Colace and Senna, PRN bisacodyl.
Bladder: Time void, PVRs, PRN straight cath.
GI prophylaxis: Pantoprazole
DVT prophylaxis: Mechanical and continue subcutaneous heparin
Safety: Continue to reinforce assistance with all transfers.
Code Status: Full code per chart
Dispo (date/plan/equipment needs): Home with assistance
Discharge Destination: Acute inpatient rehabilitation
Functional and Medical Goals: Modified Independent with ADL�s, ambulation, transfers
Summary of recommendations:
Discharge Destination: Acute inpatient rehabilitation- The patient was independent at her activities before her hospitalization. The patient would benefit from acute inpatient rehabilitation. PT/OT/ST will support to increase independence with
ADLs, improve balance, coordination, endurance, strength, mobility, community reintegration, decreased burden of care on others and family education.
Right sided pontine CVA: continue aspirin/Clopidogrel bisulfate daily as Neurology recommended, statin, continue PT/OT/ST. (SBP less than 180 and diastolic less than 100 to participate with therapy for ischemic stroke). Continue to monitor
neurologic status.
Left dominant hemiparesis: High risk for falls and sliding out of chair/bed. Safety reinforced.
Left hemisensory loss with paresthesias: Patient must be careful not to burn herself on the left. She should not test temperatures with the left arm or leg. Makes her ability to use the left arm and leg more difficult.
-Can use gabapentin for paresthesias if necessary.
Dysarthria: speech therapy will improve her communication ability

Documented by User: Aly Gibson MD 03/05/24 22:46
Consultation - Medical
-
Referring Provider:Yao Joseph
Chief Complaint: Left sided weakness
History of Present Illness:
The patient is a 78 yo left handed female who was admitted to ER on 03/03/24 complaining from left sided weakness and slurred speech which started in the morning after she woke up. The patient has a PMH of hypertension hyperlipidemia and diabetes
(NIDDM). Brain MRI showed a right-sided ischemic pontine stroke along with 2 areas of microhemorrhage in the tereso and cerebellar areas, moderate small vessel ischemic disease in the white matter of the hemispheres bilaterally. No significant
posterior circulation atherosclerosis in the vertebral or basilar arteries noted. The patient was seen in her room sitting in the chair with supervision of her . She was oriented time, place and person. Dysarthria and left side facial/body
weaknesses were observed. Patient denies difficulty with swallowing.
Past Medical History:hypertension hyperlipidemia and diabetes (NIDDM)
Procedure History: and Orthopedic (Laminectomy)
Family History: Noncontributory
Social History:
Tobacco: Denies
Alcohol: Denies
Drug use: Denies
Functional Level Premorbidly: Independent with all activities/ using a rolling walker
Functional Level Currently:Bed Mobility: Supine to sit -Moderate assistance / Sit to supine- Not tested /Rolling- Not tested, Transfers:-Sit to stand- Maximum
assistance/ Stand to sit- Maximum assistance/ Stand/pivot/sit- Maximum assistance
Lives with:family
24-hour assistance available:Yes
Number of floors:1
# steps to enter:0
# steps to second floor:0
Potential First floor set up:lives on first floor
Driving:No
Occupation:No
Allergies
Allergy/AdvReac Type Severity Reaction Status Date / Time
No Known Allergies Allergy Unverified 03/03/24 07:29
Home Medications
aspirin 81 mg tablet,delayed release 81 mg PO QPM 03/03/24
atenolol 50 mg tablet 50 mg PO DAILY 03/03/24
calcium carbonate 500 mg PO DAILY 03/03/24
canagliflozin 100 mg tablet (Invokana) 100 mg PO DAILY 03/03/24
cholecalciferol (vitamin D3) 25 mcg (1,000 unit) tablet (Vitamin D3) 25 mcg PO DAILY 03/03/24
ferrous sulfate 325 mg (65 mg iron) tablet 325 mg PO DAILY 03/03/24
metformin 1,000 mg tablet 1,000 mg PO BID 03/03/24
risperidone 1 mg tablet (Risperdal) 1 mg PO HS 03/03/24
sertraline 50 mg tablet 50 mg PO DAILY 03/03/24
simvastatin 10 mg tablet (Zocor) 10 mg PO HS 03/03/24
Active Current Visit Medication List
Category Date Time Status
Acetaminophen [Tylenol] Med 03/03/24 12:41 Active
1,000 mg PO Q6HPRN PRN
Aspirin Chewable [Low Strength Aspirin] Med 03/04/24 08:00 Active
81 mg PO DAILY
Atenolol [Tenormin] Med 03/03/24 22:00 Active
50 mg PO HS
Atorvastatin [Lipitor] Med 03/03/24 18:00 Active
40 mg PO QPM
Clopidogrel Bisulfate [Plavix] Med 03/04/24 08:00 Active
75 mg PO DAILY
Dextrose 50%-Water [Dextrose 50% Syringe] Med 03/03/24 12:39 Active
12.5 grams IV [id number] PRN
Empagliflozin [Jardiance] Med 03/06/24 08:00 Active
10 mg PO DAILY
Flush (0.9% Sodium Chloride) [Flush (Nss)] Med 03/03/24 13:00 Active
See Dose Instructions IV PER PROTOCOL
Glucagon [GlucaGen] Med 03/03/24 12:39 Active
1 mg IM PRN PRN
Heparin Med 03/03/24 20:00 Active
5,000 units SC Q12
HydrALAZINE [Apresoline] Med 03/03/24 11:53 Active
5 mg IV Q6HPRN PRN
Insulin Aspart Corrective Mod [Novolog Flexpen-Moderate Med 03/03/24 16:30 Active
Resistance]
See Protocol SC AC
Lisinopril [Zestril] Med 03/05/24 13:00 Active
5 mg PO DAILY
Lorazepam [Ativan] Med 03/03/24 14:49 Active
1 mg IV DAILYPRN PRN
METFORMIN HCl [Glucophage] Med 03/03/24 17:00 Active
1,000 mg PO BID@0800,1700
Risperidone [Risperdal] Med 03/03/24 22:00 Active
1 mg PO HS
Sertraline HCl [Zoloft] Med 03/03/24 22:00 Active
50 mg PO HS
Review of Systems
History Source: Patient
Constitutional: (x) abNormal _ fatigue
Eye: (x) Normal _
Ear/Nose/Throat: (x) Normal _
Respiratory: (x) Normal _
Cardiovascular: (x) Normal _
Gastrointestinal: (x) Normal _
Genitourinary: (x) Normal _
Musculoskeletal: (x) Normal _
Integumentary: (x) Normal _
Neurologic: (x) abNormal Weakness, Numbness and Speech Problem. No dysphagia._
Psychiatric: (x) Normal _
Endocrine: (x) Normal _
Hematologic/Lymphatic: (x) Normal _
Allergic/Immunologic: (x) Normal _
Vitals:
Vital Signs
Temp Pulse Resp BP Pulse Ox
97.4 F 114 20 168/87 99
03/05/24 11:36 03/05/24 11:36 03/05/24 11:36 03/05/24 11:36 03/05/24 11:36
Physical Exam:
General Appearance/Observation: Well-developed, well-nourished female in no apparent distress
Attention Span & Concentration: Awake, Alert and Interactive
Memory: Unremarkable (AAOx3) and short memory is intact
Tremor: Hand Tremor Absent and Head Tremor Absent
Involuntary Movement: None
Speech: Dysarthria
Pain/Comfort Assessment: Denies
Mood: Depressed /Affect: Appropriate
Integumentary/Operative Site:No concerns during exam
Pressure Ulcer Evaluation: absent over heels.
Eyes: Conjunctiva/Lids: normal Pupils: pupils equal round and reactive to light and Accommodation
Ears/Nose/Throat: oral mucosa moist, throat clear. Lips/Teeth/Gums: normal
Neck: No muscle spasm or tenderness. Weakness on the left side.
Cardiovascular: Heart: regular, no murmur
Pulses: dorsalis pedis 2+ bilaterally
Respiratory: Respiratory Effort/Chest Expansion: normal Auscultation: Clear to
auscultation bilaterally
Gastrointestinal: abdomen not tender, no distension, normal abdominal bowel sounds
Genitourinary: No Perez
Rectal Exam: Deferred
Extremities: Edema: None Cyanosis: None Trophic changes: None
Neurology Exam: Left inattention
Orientation: Alert, Oriented to self, Time, Place
Comprehension: Intact
Two step command: Intact
Naming: Intact
Cranial Nerves:
Cranial Nerve II: Left Eye: Pupillary Reactivity Unremarkable, Pupillary Size Unremarkable and Visual Scott Intact
Cranial Nerve II: Right Eye: Pupillary Reactivity Unremarkable, Pupillary Size Unremarkable and Visual Scott Intact
Cranial Nerves III, IV, : Extraocular Movement: Extraocular Movement Full in all Directions
Cranial Nerve V: Facial Sensation: Diminished sensation on the left side
Cranial Nerve VII: Facial asymmetry. Left side of the face has weakness
Cranial Nerve VIII: Hearing: Unremarkable Hearing to Normal Conversational Volume
Cranial Nerves IX, X: Palate Movement: Palate Elevation Symmetric, dysarthria
Cranial Nerve XI: Shoulder Shrug: weakness on the left side
Cranial Nerve XII: Tongue Protrusion: Midline
Light touch: Diminished sensation to light touch on the left side of the body and on the left side of the face, no extinction to double simultaneous stimulation.
Reflexes:
Biceps: 2+ bilaterally
Brachioradialis: 2+ bilaterally
Triceps: 2+ bilaterally
Patellar: 2+ bilaterally
Achilles: 2+ bilaterally
Babinski: Going up on the left side
Clonus: None
Lacey: Negative bilaterally
Cerebellar: Dysmetria/Ataxia: Was not able to assessed due patient`s condition.
Musculoskeletal:
Motor: (Manual muscle scale 0-5) Motor examination was suboptimal due patient`s feeling tired and cognition status. She had difficulty to undestand the commands.
Muscle SA EF WE EE FF FA HF KE DF EHL PF
Right 5 5 5 5 5 5 5 5 5 5 5
Left 2 2 2 3 3 3 2 2 2 2 2
Tone: Normal in extremities on the right side, decreased tone on the left side
Range of Motion: Passively within normal limits in all extremities
Lab Results
Laboratory Data
03/05/24 06:58
03/05/24 06:58
PT 13.2 Sec (11.4-14.6) 03/03/24 08:01
INR 1.02 03/03/24 08:01
APTT 31.8 Sec (23.4-35.0) 03/03/24 08:01
Total Bilirubin 0.3 mg/dl (0.2-1.3) 03/04/24 07:51
AST 20 U/L (14-36) 03/04/24 07:51
ALT 15 U/L (0-35) 03/04/24 07:51
Alkaline Phosphatase 55 U/L (38-126) 03/04/24 07:51
Total Protein 7.2 g/dl (6.3-8.2) 03/04/24 07:51
Albumin 4.3 g/dl (3.5-5.0) 03/04/24 07:51
Diagnostic Results: as per HPI
Assessment
78 yo female,PMH (HTN, HLD, NIDDM) with 03/03/24 left sided weakness and slurred speech. from right-sided ischemic pontine stroke along with 2 areas of microhemorrhage in the tereso and cerebellar areas, with ADL, ambulatory and speech dysfunction.
Plan
Right sided pontine CVA: continue aspirin/Plavix for 21 days (through 03/23) then clopidogrel life long as recommended by Neurology, statin, continue PT/OT/ST. (SBP less than 180 and diastolic less than 100 to participate with therapy for ischemic
stroke). Continue to monitor neurologic status.
Left dominant hemiparesis and inattention: High risk for falls and sliding out of chair/bed. Safety reinforced. - Avoid using affected arm to help lift or pull patient as this will cause trauma to the shoulder.
Left hemisensory loss with paresthesias: Patient must be careful not to burn herself on the left. She should not test temperatures with the left arm or leg. Makes her ability to use the left arm and leg more difficult.
-Can use gabapentin for paresthesias if necessary.
Dysarthria: speech
HLD:statin
HTN: Primary hypertension. Patient takes atenolol at home. Added lisinopril at hospitalization. Hydralazine as needed to control BP
Diabetes Mellitus: She takes metformin and Invokana. Will continue with metformin. hemoglobin A1c 7.1 Added insulin sliding scale. Management will be followed up by primary team.
History of depression/anxiety: Risperdal, 1 mg at night. Her son is pharmacist, reviewed medications with him Continue with. Psychology consult. Monitor mood, adjust medications as needed.
History of chronic kidney disease stage II: Monitor renal function, encourage hydration.
Bowel: Colace and Senna, PRN bisacodyl.
Bladder: Time void, PVRs, PRN straight cath.
GI prophylaxis: Pantoprazole
DVT prophylaxis: Mechanical and subcutaneous heparin
Safety: Continue to reinforce assistance with all transfers.
Code Status: Full code per chart
Dispo (date/plan/equipment needs): Home with assistance
Discharge Destination: Acute inpatient rehabilitation
Functional and Medical Goals: Modified Independent with ADL�s, ambulation, transfers
Summary of recommendations:
Discharge Destination: Acute inpatient rehabilitation- The patient was independent at her activities before her hospitalization. The patient would benefit from acute inpatient rehabilitation. PT/OT/ST will support to increase independence with
ADLs, improve balance, coordination, endurance, strength, mobility, community reintegration, decreased burden of care on others and family education.
Right sided pontine CVA: continue aspirin/Clopidogrel bisulfate daily as Neurology recommended, statin, continue PT/OT/ST. (SBP less than 180 and diastolic less than 100 to participate with therapy for ischemic stroke). Continue to monitor
neurologic status.
Left dominant hemiparesis: High risk for falls and sliding out of chair/bed. Safety reinforced.
Left hemisensory loss with paresthesias: Patient must be careful not to burn herself on the left. She should not test temperatures with the left arm or leg. Makes her ability to use the left arm and leg more difficult.
-Can use gabapentin for paresthesias if necessary.
Dysarthria: speech therapy will improve her communication ability
Attending Statement:
I saw and examined the patient today.� Reviewed care plan with patient, , liaison, and resident.� I agree with the above subjective and physical exam, and plan as documented by Dr. Tan with adjustments made as necessary.
A total of 60 minutes were spent with the patient preparing for the evaluation, obtaining history, performing examination and evaluation, counseling, data review, case management, care coordination, sales order clerk, and EMR documentation.
--- NOTE | 2024-03-05 12:48 | W.PN.HOSP.TC ---
Today's Communication/Plan
-
Monitor vital signs and see plan
PMNR consulted, awaiting evaluation
PT/OT
Continue with dual antiplatelet therapy
Add lisinopril
Continue atenolol
Discussed with at bedside
Assessment / Plan
Assessment / Plan
General: Well Nourished, No Apparent Distress and Comfortable
HEENT: Anicteric, Moist mucous membranes and Atraumatic
Respiratory: Clear
Cardiac: S1/S2 and Regular Rhythm
GI: Soft and Non Tender
Musculoskeletal: No Edema
Neuro: AO x 3; No Slurred Speech, Facial Droop or Tremors
Psych: Calm and Intact Judgment/Insight
Left-sided weakness. Patient woke up with left-sided weakness, unknown duration
Symptoms seems to improving
MRI acute to subacute infarction involving the right anterolateral and superior tereso.
Neurology following
echocardiogram with EF 55 to 60%
Neurochecks
Continue atorvastatin
Telemetry monitoring
PT/OT recommending acute rehab. PM&R consult placed.
Speech therapy recommended regular diet
DAPT therapy aspirin and clopidogrel for total of 3 weeks and then switch to clopidogrel monotherapy
Appreciate neurology input
# Primary hypertension
Patient takes atenolol at home.
Add lisinopril
Goal normotension
Hydralazine as needed
# Diabetes. She takes metformin and Invokana.
Will continue with metformin. hemoglobin A1c 7.1
Add insulin sliding scale
# History of depression/anxiety
Continue with Risperdal, 1 mg at night. Her son is pharmacist, reviewed medications with him
Continue with Zoloft
# History of chronic kidney disease stage II
Monitor renal function
# DVT prophylaxis, subcu heparin
PT/OT
I spent a total of 51 minutes with the patient or on the floor. More than 50% of this time involved counseling and coordination of care.
Anticipated Discharge: Within 24 hours
Subjective/Interval History
-
Date of Service: March 05, 2024
denies pain
Objective Data
-
Labs:
Laboratory Results
03/05/24
06:58
WBC 7.5
Hgb 12.1
Hct 35.5 L
Plt Count 176
Sodium 136
Potassium 4.2
Chloride 103
Carbon Dioxide 24
BUN 25 H
Creatinine 0.9
Glucose 160 H
Calcium 10.2
Vital Signs:
Vital Signs
Temp Pulse Resp BP Pulse Ox
97.4 F 114 20 168/87 99
03/05/24 11:36 03/05/24 11:36 03/05/24 11:36 03/05/24 11:36 03/05/24 11:36
I&O
03/04/24 03/05/24 03/06/24
06:59 06:59 06:59
Intake Total 480 / 480 1080 / 1080
Balance 480 / 480 1080 / 1080
[2024-03-05] MEDS: ZESTRIL PO (15:06)
[2024-03-05 16:32] LABS: Glucose - Point of Care 178 mg/dl (70-99)
[2024-03-05] MEDS: LIPITOR 40 MG PO (17:41)
[2024-03-05] MEDS: TENORMIN 50 MG PO (20:45)
[2024-03-05] MEDS: ZOLOFT 50 MG PO (20:45)
[2024-03-05] MEDS: RISPERDAL 1 MG PO (20:45)
[2024-03-05 22:11] LABS: Glucose - Point of Care 154 mg/dl (70-99)
[2024-03-06 03:26] VITALS: BP 120/67
--- NOTE | 2024-03-06 04:11 | DOWNTIME ---
There was a [employer] Downtime on 03/06/2024 from 0100 to 03/06/2024 at 0255. Downtime documentation of patient's care, including medication administrations, has been reconciled in the electronic record per guidelines. Refer to the
patient's paper chart under the miscellaneous tab to see printed paper medication records and downtime forms.
[2024-03-06 07:00] VITALS: BP 142/71
[2024-03-06 07:34] LABS: Glucose - Point of Care 179 mg/dl (70-99)
[2024-03-06 08:02] LABS: % Basophils 0.2 % (0-2); % Eosinophils 1.2 % (0-6); % Immature Granulocytes 0.2 % (0-0.5); % Lymphocytes 37.5 % (20.5-51.1); % Monocytes 7.4 % (1.7-9.3); % Neutrophils 53.5 % (42.2-75.2); Absolute Eosinophils 0.1 10^3/uL (0-0.7); Absolute Lymphocytes 2.4 10^3/uL (1.2-3.4); Absolute Monocytes 0.5 10^3/uL (0.1-0.6); Absolute Neutrophils 3.5 10^3/uL (1.4-6.5); Hemoglobin 11.8 g/dL (12.0-16.0); Mean Corp Hgb Conc. 33.7 g/dL (33.0-37.0); Mean Corpuscular Hgb 28.2 pg (27.0-31.0); Mean Corpuscular Volume 83.5 fL (81.0-99.0); Nucleated Red Blood Cells % 0 %; Platelet Count 191 10^3/uL (130-400); Red Blood Cell Count 4.19 10^6/uL (4.20-5.40); Red Cell Dist. Width 13.3 % (11.5-14.5); White Blood Cell Count 6.5 10^3/uL (4.8-10.8)
--- NOTE | 2024-03-06 08:05 | W.PN.NEURO.1 ---
Addendum entered and electronically signed by Kalpesh Person MD 03/06/24 10:22:
I saw and evaluated the patient reviewed June she can agree to find the following comments:
78-year-old woman with a past medical history of hypertension, hyperlipidemia and diabetes, depression who presented to hospital with left-sided face arm and leg weakness along with dysarthria. No acute events overnight the patient is feeling
relatively well with no complaint of headache chest pain dyspnea or abdominal pain. She is tolerating modified diet.
Neurologic examination shows patient is a bit more awake compared to my examination of her 03/04, interactive and answers questions appropriately, shows moderate dysarthria along with left facial weakness, left arm will occasionally show ability to
lift off the bed with 3/5 arm flexion and barely sleep/5 shoulder abduction at times, left leg hip flexion 3/5 barely at times, grossly intact to light touch in the left arm and leg.
MRI brain reviewed with an acute ischemic stroke in the right tereso, there are 2 small areas of microhemorrhage in the brainstem and cerebellar areas, moderate ischemic small vessel disease in the white matter of the hemispheres bilaterally
CTA of the head and neck with no significant atherosclerosis in the vertebral or basilar arteries
Transthoracic echocardiogram noted with normal left atrial size, normal ejection fraction mild LVH.
Assessment: Highly likely to be a small vessel disease mechanism of ischemic stroke given characteristic location in the tereso along with risk factors and absence of large vessel atherosclerosis on CTA of the head and neck and echocardiogram not
highly suggestive of a cardioembolic source of stroke.
Areas of microhemorrhage on the brain are minimal and are very likely due to chronic hypertension, would not stop the use of appropriate antithrombotic medications for ischemic stroke prevention.
Recommendations
-DAPT therapy for 3 weeks end date of aspirin would be 03/24 and continue on clopidogrel 75 mg thereafter
-For now on hospital atorvastatin 40 mg daily is acceptable, at home 20 mg simvastatin would be acceptable for small increase, her LDL is less than 70
-Goal normoglycemia normotension here in the hospital
-Aspiration precautions, modified diet
-Continue cardiac telemetry while inpatient
-Planning for acute rehabilitation stay
-Discussed with family
-Outpatient neurology follow-up in 4 to 6 weeks after discharge
Will follow as needed call with questions and concerns
Original Note:
Documented by User: Jennifer Liu NP 03/06/24 09:48
Today's Communication / Plan
-
.
Neuro Assessment/Plan
Assessment
This is a 78-year-old ambidextrous female who presented to on 03/03/24 with report of left-sided weakness and dysarthria upon awakening. CT head and CTA head/neck were obtained on arrival and were negative for any acute abnormalities. She was not
a candidate for TNK/IAT due to being outside of the time window and no LVO. She was taking aspirin 81mg daily.
-CT Head 03/03/24: There are no acute intracranial abnormalities. There is moderate diffuse cortical atrophy with moderate nonspecific white matter changes as described above.
-CTA head/neck 03/03/24: There is no evidence of major intracranial branch occlusion or significant stenosis in the major intracranial vessels. There is small volume partially calcific atherosclerotic plaque in the right common carotid artery, both
carotid bifurcations and the cavernous portions of both internal carotid arteries without significant stenosis
-MRI brain 03/04/24: Focal area of acute to subacute infarction involving the right anterolateral and superior tereso. Moderate diffuse atrophy. Moderate leukomalacia. 3 small foci of decreased T2 gradient-echo signal identified, one in the right
cerebellar hemisphere and 2 in the left side of the tereso. 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
-TTE 03/04/24: EF 55-60%, aortic sclerosis without stenosis, mild tricuspid regurgitation, no PFO, left atrium volume within normal range.
I. Acute right pontine ischemic stroke; etiology likely small vessel disease.
II. Three small right cerebellar and left pontine foci of old microhemorrhage.
Plan
-Continue DAPT with aspirin 81mg and Plavix 75mg daily for 21 days. After 21 days, discontinue aspirin and continue Plavix 75mg daily only, indefinitely.
-Goal normotension as it is greater than 24 hours from symptom onset.
-LDL goal <70. LDL is 52. Home simvastatin 10mg daily increased to atorvastatin 40mg daily, unclear if this is of benefit as patient's LDL is at goal.
-Goal normoglycemia, hbA1c is 7.1.
-NIHSS and neurological checks per unit guidelines.
-Provide patient with a stroke education packet.
-PT/OT/ST evaluations.
-DVT prophylaxis.
-Patient should follow-up with Neurology as an outpatient in 4-6 weeks, may see the TILE SETTER APPRENTICE or one of the physicians.
Subjective/Objective
Subjective Data
Date of Service: March 06, 2024
No acute events overnight. Patient reports ongoing left-sided weakness and dysarthria. She denies any headache, dizziness, vision changes, swallowing difficulty, numbness, nausea, chest pain, palpitations, and shortness of breath.
Objective Data
Vital Signs
Temp Pulse Resp BP Pulse Ox
97.6 F 79 16 120/67 98
03/06/24 03:26 03/06/24 03:26 03/06/24 03:26 03/06/24 03:26 03/06/24 03:26
Lab Results
03/06/24 07:46
PT 13.2 Sec (11.4-14.6) 03/03/24 08:01
INR 1.02 03/03/24 08:01
APTT 31.8 Sec (23.4-35.0) 03/03/24 08:01
Sodium 136 mmol/L (135-145) 03/05/24 06:58
Potassium 4.2 mmol/L (3.5-5.1) 03/05/24 06:58
BUN 25 mg/dl (7-17) H 03/05/24 06:58
Glucose 160 mg/dl (70-99) H 03/05/24 06:58
Calcium 10.2 mg/dl (8.4-10.2) 03/05/24 06:58
LDL Cholesterol, Calc 52 mg/dl 03/04/24 07:51
Patient Allergies
No Known Allergies Allergy (Unverified 03/03/24 07:29)
LDL Level: <70, continue statin
Review of Systems
-
History Source: Patient
EENT: Negative Blurry Vision, Decreased Vision or Swallowing Difficulty
Respiratory: Negative Cough or Trouble Breathing
Cardiac: Negative Chest Pain or Palpitations
Abdomen/GI: Negative Nausea
Genitourinary: Difficulty Voiding
Neuro: Weakness and Speech Problem; Negative Dizzy, Headache, Numbness, Ataxia or Tremors
Physical Exam
-
General: No Apparent Distress
Eyes: No Ptosis and PERRLA
HEENT: Normocephalic and Atraumatic
Neck: Full Range of Motion
Respiratory: No Dyspnea
GI: Non-distended
Extremities: No Clubbing, No Cyanosis and No Edema
Psych: Unremarkable
Extended Neurological Exam
Mood & Affect: Mood Unremarkable and Affect Unremarkable
Attention Span & Concentration: Awake, Alert and Interactive
Memory: Unremarkable (AAOx3) and Able to Recall
Tremor: Hand Tremor Absent and Head Tremor Absent
Involuntary Movement: None
Speech: Rate of Production Unremarkable and Dysarthric
Cranial Nerve II: Left Eye: Pupillary Reactivity Unremarkable, Pupillary Size Unremarkable and Visual Scott Intact
Cranial Nerve II: Right Eye: Pupillary Reactivity Unremarkable, Pupillary Size Unremarkable and Visual Scott Intact
Cranial Nerves III, IV, : Extraocular Movement: Extraocular Movement Full in all Directions
Cranial Nerve V: Facial Sensation: Intact to Light Touch
Cranial Nerve VII: Facial Symmetry: Reduced (left facial drooping)
Cranial Nerve VIII: Hearing: Unremarkable Hearing to Normal Conversational Volume
Cranial Nerves IX, X: Palate Movement: Palate Elevation Symmetric
Cranial Nerve XI: Shoulder Shrug: Unremarkable
Cranial Nerve XII: Tongue Protusion: Midline
Muscle Strength, Overall: Reduced on Left (LUE 3-/5, LLE 2/5)
Muscle Bulk & Tone: Reduced Tone (left side)
Pronator Drift: Drift in Left Upper Extremity and Drift in Left Lower Extremity
Touch Sensation: Double Simultaneous Stimulation Unremarkable and Other (reports decreased sensation left side compared to right side)
Coordination: Other (NATHEN LUE, RUE intact)
Modified [place] Score (MRS)
-
Modified [place] Scale (mRS): Moderately severe disability. Unable to attend to bodily needs/walk.
Score: 4
Data Reviewed
-
CT-A: Report Reviewed and Image Reviewed
CT Head: Report Reviewed and Image Reviewed
MRI Head: Report Reviewed and Image Reviewed
Labs: Report Reviewed
Lipid Profile: Report Reviewed
HgbA1C: Report Reviewed
Reviewed with: Physician, Patient and Family
Medications
-
Active Medications
Generic Name Dose Route Start Last Admin
Trade Name Freq PRN Reason Stop Dose Admin
Acetaminophen 1,000 mg 03/03/24 12:41 03/05/24 11:27
Acetaminophen 500 Mg Tablet PO 03/31/24 12:40 1,000 mg
Q6HPRN PRN Administration
mild to mod pain
Aspirin 81 mg 03/04/24 08:00 03/05/24 08:33
Aspirin 81 Mg Chewable Tablet PO 04/01/24 07:59 81 mg
DAILY RIVKA Administration
Atenolol 50 mg 03/03/24 22:00 03/05/24 20:45
Atenolol 50 Mg Tablet PO 03/31/24 21:59 50 mg
HS RIVKA Administration
Atorvastatin Calcium 40 mg 03/03/24 18:00 03/05/24 17:41
Atorvastatin (Lipitor) 40 Mg Tablet PO 03/31/24 17:59 40 mg
QPM RIVKA Administration
Clopidogrel Bisulfate 75 mg 03/04/24 08:00 03/05/24 08:33
Clopidogrel 75 Mg Tablet PO 04/01/24 07:59 75 mg
DAILY RIVKA Administration
Dextrose 12.5 grams 03/03/24 12:39
Dextrose 50% (0.5 Grams/Ml) 50 Ml Syringe IV 03/31/24 12:38
[id number] PRN
hypoglycemia
Protocol
Empagliflozin 10 mg 03/06/24 08:00
Empagliflozin (Jardiance) 10 Mg Tablet PO 04/03/24 07:59
DAILY RIVKA
Glucagon 1 mg 03/03/24 12:39
Glucagon 1 Mg Vial IM 03/31/24 12:38
PRN PRN
hypoglycemia
Protocol
Heparin Sodium 5,000 units 03/03/24 20:00 03/05/24 20:46
Heparin 5,000 Units/Ml 1 Ml Vial SC 03/31/24 19:59 5,000 units
Q12 RIVKA Administration
Hydralazine HCl 5 mg 03/03/24 11:53 03/04/24 11:38
Hydralazine 20 Mg/Ml Vial IV 03/31/24 11:52 5 mg
Q6HPRN PRN Administration
sbp more than 180
Insulin Aspart 0 units 03/03/24 16:30 03/05/24 17:40
Insulin Aspart Moderate Resistance 300 Units/3 Ml Pen.Injctr SC 03/31/24 16:29 1 units
AC RIVKA Administration
Protocol
Lisinopril 5 mg 03/05/24 13:00 03/05/24 15:06
Lisinopril 5 Mg Tablet PO 04/02/24 12:59 Not Given
DAILY RIVKA
Lorazepam 1 mg 03/03/24 14:49 03/04/24 09:30
Lorazepam 2 Mg/Ml Vial IV 03/31/24 14:48 1 mg
DAILYPRN PRN Administration
MRI testing
Metformin HCl 1,000 mg 03/03/24 17:00 03/05/24 17:41
Metformin 1000 Mg Regular Release Tablet PO 03/31/24 16:59 1,000 mg
BID@0800,1700 RIVKA Administration
Risperidone 1 mg 03/03/24 22:00 03/05/24 20:45
Risperidone 1 Mg Tablet PO 03/31/24 21:59 1 mg
HS RIVKA Administration
Sertraline HCl 50 mg 03/03/24 22:00 03/05/24 20:45
Sertraline 50 Mg Tablet PO 03/31/24 21:59 50 mg
HS RIVKA Administration
Sodium Chloride 0 flush 03/03/24 13:00
Sodium Chloride 0.9% (Flush) Syringe IV 03/31/24 12:59
PER PROTOCOL RIVKA
Home Medications
�Medication �Instructions �Recorded
aspirin 81 mg tablet,delayed 81 mg PO QPM 03/03/24
release
atenolol 50 mg tablet 50 mg PO DAILY 03/03/24
calcium carbonate 500 mg PO DAILY 03/03/24
canagliflozin 100 mg tablet 100 mg PO DAILY 03/03/24
(Invokana)
cholecalciferol (vitamin D3) 25 25 mcg PO DAILY 03/03/24
mcg (1,000 unit) tablet (Vitamin
D3)
ferrous sulfate 325 mg (65 mg 325 mg PO DAILY 03/03/24
iron) tablet
metformin 1,000 mg tablet 1,000 mg PO BID 03/03/24
risperidone 1 mg tablet (Risperdal) 1 mg PO HS 03/03/24
sertraline 50 mg tablet 50 mg PO DAILY 03/03/24
simvastatin 10 mg tablet (Zocor) 10 mg PO HS 03/03/24
NIH Stroke Score
Subsequent NIH Scale
Date of Subsequent NIH Scale: 03/06/24
Time of Subsequent NIH Scale: 08:20
NIH Stroke Score
Level of Consciousness: 0 - Alert
LOC Questions: 0-Answers both correctly
LOC Commands: 0-Performs both correctly
Best Horizontal Gaze: 0-Normal
Visual Scott: 0=Normal, no visual loss
Facial Palsy: 1=Minor paralysis
Motor - Right Arm: 0=No drift 10 seconds
Motor - Left Arm: 2=Partial vs. gravity
Motor - Right Le-No drift 5 seconds
Motor - Left Le-Partial vs. gravity
Limb Ataxia: 0-Absent
Sensation: 1-Mild loss
Best Language: 0-No aphasia
Dysarthria: 1-Mild slurring
Extinction and Inattention: 0-No abnormality
Total Score:: 7
Modified [place] (mRS) Score
Modified [place] Scale (mRS): Moderately severe disability. Unable to attend to bodily needs/walk.
Score: 4

Documented by User: Kalpesh Person MD 03/06/24 10:17
Modified [place] Score (MRS)
-
Score: 4
NIH Stroke Score
NIH Stroke Score
Total Score:: 7
Modified Kiko (mRS) Score
Score: 4
[2024-03-06 08:37] LABS: Blood Urea Nitrogen 31 mg/dl (7-17); Calcium 11.1 mg/dl (8.4-10.2); Carbon Dioxide 25 mmol/L (22-30); Chloride 102 mmol/L (98-107); Estimated Creatinine Clearance 37 ml/min; Glucose 148 mg/dl (70-99); Potassium 4.3 mmol/L (3.5-5.1); Sodium 137 mmol/L (135-145); eGFR 58.02
[2024-03-06] MEDS: PLAVIX 75 MG PO (08:53)
[2024-03-06] MEDS: HEPARIN 5000 UNITS SC (08:53)
[2024-03-06] MEDS: ZESTRIL 5 MG PO (08:53)
[2024-03-06] MEDS: JARDIANCE 10 MG PO (08:53)
[2024-03-06] MEDS: NOVOLOG FLEXPEN-MODERATE RESISTANCE 1 UNITS SC (08:53)
[2024-03-06] MEDS: LOW STRENGTH ASPIRIN 81 MG PO (08:54)
[2024-03-06] MEDS: GLUCOPHAGE 1000 MG PO (08:54)
--- NOTE | 2024-03-06 09:58 | CM ---
Addendum entered by Maddy Sousa 03/06/24 12:45:
Patient and spouse seen bedside, IMM reviewed, signed, placed in chart. [facility] can accept patient around 1:00 p.m. CM will continue to follow for all discharge planning needs.
Original Note:
Authorization approved for patient to go [facility], auth #[id number], 7 days, 03/06-03/12, next review 03/12 to [phone], fax [phone]. TT sent to Hospitalist and [facility] liaison with auth approval. CM will continue to follow for all
discharge planning needs.
[facility]
Report: [phone]
Fax: [phone]
--- NOTE | 2024-03-06 10:24 | W.PN.HOSP.TC ---
Addendum entered and electronically signed by Yao Joseph MD 03/06/24 11:34:
intermittent urinary retention overnight, required staraight cath. likely from not moving around and positional. RN to continue to monitor with bladder scan at [facility]
Original Note:
Today's Communication/Plan
-
Monitor vital signs and see plan
Discharge today to [facility]
Continue aspirin and Plavix
Continue BP meds
Discussed with at bedside
Time of discharge 38 minutes
Assessment / Plan
Assessment / Plan
General: Well Nourished, No Apparent Distress and Comfortable
HEENT: Anicteric, Moist mucous membranes and Atraumatic
Respiratory: Clear
Cardiac: S1/S2 and Regular Rhythm
GI: Soft and Non Tender
Musculoskeletal: No Edema
Neuro: AO x 3; No Slurred Speech, + Facial Droop; left side motor 2/5
Psych: Calm and Intact Judgment/Insight
Left-sided weakness. Patient woke up with left-sided weakness, unknown duration
Symptoms seems to improving
MRI acute to subacute infarction involving the right anterolateral and superior tereso.
Neurology following
echocardiogram with EF 55 to 60%
Neurochecks
Continue atorvastatin
Telemetry monitoring
PT/OT recommending acute rehab. PM&R consult placed.
Speech therapy recommended regular diet
DAPT therapy aspirin and clopidogrel for total of 3 weeks and then switch to clopidogrel monotherapy
Appreciate neurology input
# Primary hypertension
Patient takes atenolol at home.
Added lisinopril
Goal normotension
Hydralazine as needed
# Diabetes. She takes metformin and Invokana.
Will continue with metformin. hemoglobin A1c 7.1
Add insulin sliding scale
# History of depression/anxiety
Continue with Risperdal, 1 mg at night. Her son is pharmacist, reviewed medications with him
Continue with Zoloft
# History of chronic kidney disease stage II
Monitor renal function
# DVT prophylaxis, subcu heparin
PT/OT rec acute rehab
Anticipated Discharge: Today
Subjective/Interval History
-
Date of Service: March 06, 2024
denies pain
Objective Data
-
Labs:
Laboratory Results
03/06/24
07:46
WBC 6.5
Hgb 11.8 L
Hct 35.0 L
Plt Count 191
Sodium 137
Potassium 4.3
Chloride 102
Carbon Dioxide 25
BUN 31 H
Creatinine 1.0
Glucose 148 H
Calcium 11.1 H
Vital Signs:
Vital Signs
Temp Pulse Resp BP Pulse Ox
97.9 F 73 16 142/71 100
03/06/24 07:00 03/06/24 07:00 03/06/24 07:00 03/06/24 08:53 03/06/24 08:00
I&O
03/05/24 03/06/24 03/07/24
06:59 06:59 06:59
Intake Total 1080 / 1080 1200 / 1200
Output Total 800 / 800
Balance 1080 / 1080 400 / 400
--- NOTE | 2024-03-06 10:33 | W.DCSUMMARY ---
Discharge Summary
Discharge Data
Date of Admission: 03/03/24
Date of Discharge: 03/06/24
-
Pending Results: No
Hospital Course
78-year-old female with past medical history of diabetes, depression, anxiety, CKD, hypertension came to the hospital with left-sided weakness noted to have acute stroke. Patient was seen by neurology throughout hospitalization. Echocardiogram was
done which showed EF of 55 to 60%. Patient was started on aspirin and Plavix and was instructed to continue aspirin and Plavix for 3 weeks and then discontinue aspirin and continue Plavix and indefinitely. For her hypertension she was also started
on low-dose lisinopril. She was evaluated by physical therapy who recommended acute rehab. Patient was then evaluated by [facility] who accepted patient to [facility]. Prior to discharge patient also had an episode of urinary retention which was
thought was likely secondary to inability to move. Patient was instructed to get repeat bladder scan at rehab. Once patient symptoms continue to improve, she was then discharged to acute rehab with instructions to follow-up with all her physicians
outpatient.
Discharge Plan
-
Patient Disposition: Acute Rehab Facility
Discharge Diagnosis/Procedures: Acute CVA
Diabetes mellitus
Hypertension
Diet: As tolerated and Diabetic, Carb Controlled
Activity: With assistance and As tolerated
Driving Restrictions: As prior to admission
Bathing Restrictions: None
Other Services: PT and OT
Activity Restrictions/Additional Instructions:
DAPT therapy for 3 weeks; end date of aspirin would be 03/24 and continue on clopidogrel 75 mg thereafter
Bladder scan as needed at rehab
Referrals:
Tommy Posey MD [Active] - in three to four weeks
Kaela Herbert DO [Family Provider] - in less than 1 week
Prescriptions:
New
clopidogrel 75 mg Tablet
75 mg PO DAILY Qty: 0 0RF
lisinopril 5 mg Tablet
5 mg PO DAILY Qty: 0 0RF
Continued
aspirin 81 mg Tablet,Delayed Release (Dr/Ec)
81 mg PO QPM
calcium carbonate 500 mg calcium (1,250 mg) Tablet
500 mg PO DAILY
ferrous sulfate 325 mg (65 mg iron) Tablet
325 mg PO DAILY
metformin 1,000 mg Tablet
1,000 mg PO BID
risperidone [Risperdal] 1 mg Tablet
1 mg PO HS
atenolol 50 mg Tablet
50 mg PO DAILY
cholecalciferol (vitamin D3) [Vitamin D3] 25 mcg (1,000 unit) Tablet
25 mcg PO DAILY
Invokana 100 mg Tablet
100 mg PO DAILY
Changed
simvastatin [Zocor] 10 mg Tablet
20 mg PO HS Qty: 0 0RF
sertraline 50 mg Tablet
50 mg PO HS Qty: 0 0RF
Discharge Orders:
Discharge Patient (As Directed); Ordered 03/06/24
Ordered By: Yao Joseph
Discharge Date and Time
Discharge Date/Time: 03/06/24 15:37
Print Language: DANISH
[2024-03-06 11:00] VITALS: BP 121/69
[2024-03-06 12:00] LABS: Glucose - Point of Care 204 mg/dl (70-99)
[2024-03-06] MEDS: NOVOLOG FLEXPEN-MODERATE RESISTANCE 3 UNITS SC (12:02)
[2024-03-06 12:22] LABS: Urine Albumin Negative (Neg - Trace); Urine Bilirubin Negative (Negative); Urine Character Clear (Clear); Urine Color Yellow; Urine Glucose 3+ (Negative); Urine Ketone Negative (Negative); Urine Leukocyte 1+ (Negative); Urine Nitrite Negative (Negative); Urine Occult Blood Negative (Negative); Urine Specific Gravity 1.015 (<1.030); Urine Urobilinogen Negative (Neg - 1+)
[2024-03-06 14:50] LABS: Urine Mucus Moderate; Urine Squamous Cell 16-20 /LPF (Few)
[2024-03-06 14:51] LABS: Urine Amorphous Seen
[2024-03-06 14:53] LABS: Urine Red Blood Cell 0-2 /HPF (0-2)
[2024-03-06 15:00] VITALS: BP 122/88
== END 2024-03-06 15:37 | DRG 65 ==
LOC: 4 WEST ACU 09:29
PROVIDERS: Nurse Practitioner Gerontology; ADMITTING PHYSICIAN Internal Medicine; ATTENDING PHYSICIAN Internal Medicine; CONSULT PHYSICIAN Physical Medicine & Rehabilitation; CONSULT PHYSICIAN Psychiatry & Neurology Neurology; EMERGENCY PHYSICIAN Emergency Medicine; FAMILY PHYSICIAN Family Medicine
DX: I63.9 Cerebral infarction, unspecified (principal); G81.94 Hemiplegia, unspecified affecting left nondominant side; R33.9 Retention of urine, unspecified; I10 Essential (primary) hypertension; E78.5 Hyperlipidemia, unspecified; E11.9 Type 2 diabetes mellitus without complications
CPT/HCPCS: 70450; 70496; 70498; 70551; 80048; 80053; 80061; 81003; 81015; 82962; 83036; 85025; 85027; 85610; 85730; 86803; 87086; 92507; 92523; 92526; 92610; 93005; 93306; 97112; 97163; 97167; 97530; 99291; Q9967

== ENCOUNTER 2024-06-21 07:05 | Emergency (ER) | payer OTHER, SELFPAY ==
[2024-06-21 07:09] VITALS: BP 149/71; BMI 24.3
--- NOTE | 2024-06-21 07:20 | ED.MUSCINJ ---
HPI-Injury
General
Chief Complaint: Fall
Source: patient
Exam Limitations: none
Time Seen by Provider: 06/21/24 07:08
History of Present Illness-Injury
Initial Injury comments:
79-year-old female presents from [facility] rehab after a fall. She tried to get out of bed and fell onto her left leg. She complains of increased left hip pain. She had a hip fracture at the end of April that was fixed with a sveta at
[facility]. She has been at rehab since. She also has a history of a stroke affecting the left side. She was trying to build up enough strength to be able to walk with a walker at rehab recently. She did not hit her head. She denies
neck pain. She has been receiving Lovenox at rehab. No other complaints
Past History
Past History
ED Past Medical History: HTN, Hypercholesterolemia and NIDDM
ED Past Surgical History: and Orthopedic (Laminectomy)
Social History
Tobacco: Non-smoker
Alcohol: None
Drug: None
Personal:
Living: with family
Phy Exam
Physical Exam
Physical Exam:
General: Well-appearing female no acute respiratory distress
HEENT: Normocephalic atraumatic
Heart: Regular rate and rhythm no murmurs
Lungs: Clear no wheeze
Abdomen is soft nontender nondistended
Musculoskeletal exam: Patient is tender to the left thigh ranging from the hip to the knee. She prefers to have her hip and knee in flexion. Any motion reproduces pain.
Vascular: 2+ dorsalis pedis pulse bilateral feet
Neurologic: Good sensation bilateral lower extremities. Alert and oriented
Injury Course
Orders/Labs/Results
Orders:
Orders
06/21/24 07:19
CR Femur - Left Min 2 Vw Urgent
Comment:
Reason For Exam: fall, pain
CR Pelvis - 1 Or 2 Views Urgent
Comment:
Reason For Exam: fall, left hip pain
MDM/Problems Addressed
Differential Diagnosis Includes:
Patient with left hip and thigh pain after a fall. Known recent fracture requiring ORIF of the left hip. X-rays of the pelvis and femur pending. No indication for any imaging of the head or neck
*Critical Care Note
Total Time (30-74mins, 75-104mins- exclusive of procedures): Not Applicable
Update Note
Update Note:
X-rays of the pelvis and the femur reviewed. Subacute fracture noted at the proximal femur likely the reason for the intramedullary sveta but no new fractures seen. Patient has been reassured. Will discharge back to rehab
ED Attending Note
-
Portions of this chart may have been created with voice recognition software.� Occasional wrong word or��sound alike� substitutions may have occurred due to the inherent limitations of voice recognition software.
Discharge Plan
Departure
Patient Disposition: Home (Routine Discharge)
Date of Disposition: 06/21/24
Time of Disposition: 09:42
Patient with high blood pressure during this ER visit?: No
Discharge Problem:
Fall
Instructions: Preventing falls in adults
Prescriptions:
No Action
lidocaine 4 % Adhesive Patch,Medicated
1 patch topical DAILY 30 Days Qty: 30 0RF
lidocaine 4 % Adhesive Patch,Medicated
1 patch topical DAILY 30 Days Qty: 30 0RF
clopidogrel 75 mg Tablet
75 mg PO DAILY 30 Days Qty: 30 0RF
glimepiride 1 mg Tablet
1 mg PO BID AT 0800,1700 30 Days Qty: 60 0RF
bisacodyl 10 mg Suppository
10 mg FL HSPRN PRN (Reason: if no BM with oral bisacodyl) 30 Days Qty: 30 0RF
ferrous sulfate [FeroSul] 325 mg (65 mg iron) Tablet
325 mg PO DAILY 30 Days Qty: 30 0RF
bisacodyl 5 mg Tablet,Delayed Release (Dr/Ec)
10 mg PO DAILYPRN PRN (Reason: constipation) 30 Days Qty: 30 0RF
atenolol 50 mg Tablet
75 mg PO HS 30 Days Qty: 30 0RF
loratadine 10 mg Tablet
10 mg PO DAILY 30 Days Qty: 30 0RF
enoxaparin 40 mg/0.4 mL Syringe
40 mg SC QPM 30 Days Qty: 12 0RF
Jardiance 25 mg Tablet
25 mg PO DAILY 30 Days Qty: 30 0RF
atorvastatin 10 mg Tablet
10 mg PO HS 30 Days Qty: 30 0RF
amlodipine 5 mg Tablet
5 mg PO DAILY 30 Days Qty: 30 0RF
acetaminophen [Tylenol Extra Strength] 500 mg Tablet
500 mg PO Q4HPRN PRN (Reason: pain-mild) 3 Days Qty: 100 0RF
guaifenesin 100 mg/5 mL Liquid
100 mg PO TIDPRN PRN (Reason: cough) 30 Days Qty: 100 0RF
pantoprazole 20 mg Tablet,Delayed Release (Dr/Ec)
20 mg PO BID 30 Days Qty: 60 0RF
metformin 1,000 mg Tablet
1,000 mg PO BID AT 0800,1700 30 Days Qty: 60 0RF
sertraline 50 mg Tablet
50 mg PO HS 30 Days Qty: 30 0RF
risperidone 1 mg Tablet
1 mg PO HS 30 Days Qty: 30 0RF
budesonide-formoterol [Symbicort] 80-4.5 mcg/actuation Hfa Aerosol Inhaler
2 puff inhalation R BID 30 Days Qty: 1 0RF
melatonin 5 mg Tablet
5 mg PO HS 30 Days Qty: 30 0RF
cholecalciferol (vitamin D3) 50 mcg (2,000 unit) Tablet
50 mcg PO DAILY 30 Days Qty: 30 0RF
Referrals:
Sabino Robles MD [Family Provider] -
Activity Restrictions/Additional Instructions:
No new injury seen on today's x-rays. Continue rehab as planned
Interventions
Interventions:
*Risk Screen - Suicide Last Done: 06/21/24 07:11
*General Assessment Last Done: 06/21/24 07:11
*Neglect/Abuse Screening Last Done: 06/21/24 07:11
*ED COVID-19 Vaccine History Last Done: 06/21/24 07:11
ED-Musculoskeletal Assessment Last Done: 06/21/24 07:13
ED- Neurological Assessment Last Done: 06/21/24 07:12
ED-Skin Assessment Last Done: 06/21/24 07:13
Discharge Date and Time
Print Language: YAKUT
[2024-06-21 11:15] VITALS: BP 152/69
== END 2024-06-21 12:17 | disposition home or self-care (01) ==
LOC: EMR 07:05
PROVIDERS: EMERGENCY PHYSICIAN Emergency Medicine; FAMILY PHYSICIAN Family Medicine
DX: M25.552 Pain in left hip (principal); W19.XXXA Unspecified fall, initial encounter; I10 Essential (primary) hypertension; E78.00 Pure hypercholesterolemia, unspecified; E11.9 Type 2 diabetes mellitus without complications; M81.0 Age-related osteoporosis without current pathological fracture; Z86.73 Personal history of transient ischemic attack (TIA), and cerebral infarction without residual deficits
CPT/HCPCS: 99283; 72170; 73552

== ENCOUNTER 2024-10-05 04:13 | Inpatient (IN) | payer OTHER, SELFPAY ==
[2024-10-05] VITALS (13 sets, daily range): BP systolic 95–164; BP diastolic 48–78; BMI 22.8; BMI 23.5
[2024-10-05 01:48] LABS: % Basophils 0.1 % (0-2); % Immature Granulocytes 0.8 % (0-0.5); % Lymphocytes 8.1 % (20.5-51.1); % Monocytes 5.9 % (1.7-9.3); % Neutrophils 85.1 % (42.2-75.2); Absolute Immature Granulocytes 0.1 10^3/uL (0-0.05); Absolute Lymphocytes 1.3 10^3/uL (1.2-3.4); Absolute Monocytes 0.9 10^3/uL (0.1-0.6); Absolute Neutrophils 13.4 10^3/uL (1.4-6.5); Hematocrit 27.4 % (37.0-47.0); Mean Corp Hgb Conc. 32.8 g/dL (33.0-37.0); Mean Corpuscular Hgb 28.6 pg (27.0-31.0); Mean Platelet Volume 10.2 fL (7.4-10.4); Nucleated Red Blood Cells % 0 %; Platelet Count 241 10^3/uL (130-400); Red Blood Cell Count 3.15 10^6/uL (4.20-5.40); Red Cell Dist. Width 16.4 % (11.5-14.5); Urine Albumin 3+ (Neg - Trace); Urine Bilirubin Negative (Negative); Urine Character Slightly Cloudy (Clear); Urine Color Yellow; Urine Glucose Negative (Negative); Urine Ketone Negative (Negative); Urine Leukocyte 3+ (Negative); Urine Nitrite Negative (Negative); Urine Occult Blood 2+ (Negative); Urine Urobilinogen Negative (Neg - 1+); White Blood Cell Count 15.7 10^3/uL (4.8-10.8)
[2024-10-05 01:53] LABS: Urine Bacteria Few (Negative); Urine Red Blood Cell 0-2 /HPF (0-2); Urine Squamous Cell 0-2 /LPF (Few); Urine White Cell 30-40 /HPF (0-5)
[2024-10-05 02:00] LABS: ALT (SGPT) 13 U/L (0-35); AST (SGOT) 15 U/L (14-36); Albumin 3.9 g/dl (3.5-5.0); Alkaline Phosphatase 64 U/L (38-126); Blood Urea Nitrogen 28 mg/dl (7-17); Calcium 9.7 mg/dl (8.4-10.2); Carbon Dioxide 22 mmol/L (22-30); Chloride 96 mmol/L (98-107); Glucose 171 mg/dl (70-99); Potassium 4.2 mmol/L (3.5-5.1); Sodium 134 mmol/L (135-145); Total Bilirubin 1.1 mg/dl (0.2-1.3); eGFR 57.66
[2024-10-05] MEDS: NSS 1000 IV ×2 (02:14→03:16)
[2024-10-05] MEDS: TYLENOL 650 MG PO ×2 (02:15→15:29)
--- NOTE | 2024-10-05 02:19 | ED.GENMED ---
History of Present Illness
General
Chief Complaint: Urinary Symptoms
Source: patient, spouse, ambulance crew and previous hospital records (Hospitalization February 2024 for stroke.)
Exam Limitations: none
Time Seen by Provider: 10/05/24 02:06
Nursing documentation reviewed up to this point in time: agreed with
History of Present Illness
History of Present Illness:
This is a 79-year-old woman who resides at home with her . She has history of hypertension, hyperlipidemia, [id number] diabetes, CVA as well as history of UTIs.
More recently has been treated for frequent UTIs over the past 2 months with a 1 week course of Bactrim prescribed July 24 then 1 week course of Keflex prescribed August 26 and again September 23 and then more recently prescription for Augmentin
prescribed yesterday October 04 for which she has had 1 dose. states patient has had cloudy and somewhat foul-smelling urine over the past few days with onset of fever and generalized weakness tonight. She suffered a slow fall tonight,
scraping her left anterior mcmanus but he denies head injury, no loss of consciousness. Due to fever and generalized weakness she is brought to the ED by EMS.
She denies back pain or flank pain, no abdominal pain, no nausea nor vomiting, no diarrhea. She does note some chronic constipation which has been unchanged.
Previous hospitalization here in February for CVA. Transferred to [facility] then to long-term skilled facility then eventually to home but then suffered a fall with left hip fracture, fracture repair at [facility], several rehab stays but she has since
been home for the past 2 months.
Past History
Past History
ED Past Medical History: CVA, HTN, Hypercholesterolemia, NIDDM and Other (Frequent UTIs)
ED Past Surgical History: and Orthopedic (Laminectomy; left hip fracture repair)
Social History
Tobacco: Non-smoker
Alcohol: None
Drug: None
Personal:
Living: with family
Family History
Family History: Other (Noncontributory)
Phy Exam
Physical Exam
Physical Exam:
GENERAL: 79-year-old small framed woman appears her stated age, awake and alert, pleasant, appears in no acute distress. Somewhat of a language barrier, is accompanying and interpreting.
EYE: The head is normocephalic, atraumatic, pupils equal and reactive. anicteric
NECK: Supple, nontender, no meningismus, no significant adenopathy.
ENT: posterior pharynx is clear, oral mucosa is moist. No rhinorrhea.
CARDIAC: Regular rate and rhythm. no murmur.
LUNGS: Clear breath sounds bilaterally, no acute respiratory distress, no wheezes/rales/rhonchi
ABDOMEN: Soft, nondistended, without focal tenderness, no r/g, no cvat. normoactive BS.
NEUROLOGICAL: Alert and oriented x3, no focal neuro deficits.
SKIN: Warm and dry, normal color, no rash. There is a superficial linear abrasion left anterior mid mcmanus region. No soft tissue swelling, no bleeding. No palpable tenderness.
MUSCULOSKELETAL: No C/C/E. peripheral pulses are full and equal b/l. No palpable tenderness.
PSYCH: Normal and appropriate interaction.
Sepsis
Sepsis Screening
Sepsis Assessment: Sepsis
Sepsis Screen
Sepsis Screen: Sepsis
Date: 10/05/24
Time: 07:33
Course
Orders/Labs/Results
Orders:
Orders
10/05/24 01:25
Cardiac Monitoring- Treatment ONCE
IV Insert/Care/Rem.- Treatment PRN
Straight cath- Treatment ONCE
10/05/24 01:29
Blood Culture Urgent
ALIZE Source: Blood/Venous
Specimen Description:
10/05/24 01:30
COVID-19 Antigen Urgent
Source: Nasal Swab
Complete Blood Count/With Diff Urgent
Comprehensive Metabolic Panel Urgent
Lactic Acid Q4H
Comment: ON ICE, CANCEL 2ND ORDER IF FIRST LACTIC ACID LEVEL <2
Urinalysis Reflex To Culture Urgent
Date Specimen was Collected: 10/05/24
Time Specimen was Collected: 01:25
Urine Microscopic Reflex Cult Urgent
Blood Culture Urgent
ALIZE Source: Blood/Venous
Specimen Description:
Date Specimen was Collected: 10/05/24
Time Specimen was Collected: 01:28
Influenza A+B Rapid Molecular Urgent
ALIZE Source: Nasal Swab
Specimen Description:
Urine Culture Urgent
ALIZE Source: U
Specimen Description:
Date Specimen was Collected: 10/05/24
Time Specimen was Collected: 01:25
10/05/24 02:02
Acetaminophen [Tylenol] 650 mg .ROUTE .STK-MED ONE
10/05/24 02:10
0.9% Sodium Chloride 1000 ml [Nss] 1,000 ml IV BOLUS
10/05/24 02:15
Acetaminophen [Tylenol] 650 mg PO NOW STA
10/05/24 02:17
Cefepime HCl [Maxipime] 2,000 mg IV NOW STA
10/05/24 02:29
Sterile Water [Sterile Water For Injection] 10 ml .ROUTE .STK-MED ONE
10/05/24 02:53
0.9% Sodium Chloride 1000 ml [Nss] 1,000 ml IV BOLUS
10/05/24 03:21
Admit/Transfer Patient As Directed
Co-Sign Provider:
Level of Care: Inpatient admission
Assign to:: Medical/Surgical
Physician / Group: hospitalist
Diagnosis: pyelonephritis
Reason for Hospitalization: pyelonephritis w/ sepsis
Expected length of stay greater than two midnights?: Yes
ELOS- Estimated Length of Stay in days: 2
I certify the patient meets the requirements for IP care: Yes
PRN Pain Medication Management As Directed
May give lesser potent ordered pain med per pt: Yes
preference::
Protocol:: Medication orders for pain may be administered in a
manner that supports deferring to patient preference
when the pt is:
- Requesting an ordered lesser potent pain medication.
Least to most potent pain medications are defined
as: acetaminophen < NSAID < tramadol < opioids
(morphine, oxycodone, hydromorphone).
- Requesting a lesser dose of the same medication IF
ORDERED.
- Requesting a less intrusive route of administration
if both routes are prescribed by the provider (PO <
IV).
10/05/24 03:22
Code Status As Directed
Resuscitation Status: Full Code
10/05/24 05:07
Lactic Acid Q4H
Comment: ON ICE, CANCEL 2ND ORDER IF FIRST LACTIC ACID LEVEL <2
10/05/24 05:35
Acetaminophen [Tylenol] 650 mg PO Q4HPRN PRN
Guaifenesin Solution [Robitussin] 100 mg PO TIDPRN PRN
Lactated Ringers [Lr] 1,000 ml IV 75 mls/hr
Ondansetron Injectable [Zofran] 4 mg IV Q6HPRN PRN
Polyethylene Glycol Powder [Miralax] 17 grams PO DAILYPRN PRN
10/05/24 05:35
Activity As Directed
Activity Level: With Assistance
Bedside Glucose Monitoring As Directed
Frequency: AC&HS
Bladder Scan As Directed
Follow Bladder Retention/Intermittent Cath Algorithm?: No
PRN if no void in __ hours: 8
Frequency: q8h
If Bladder Scan Result >: 300
then:: Other
Call physician
Comment: first encourage urination, repeat bladder scan, if > 300, call provider
Vital Signs As Directed
Frequency: Per unit guidelines
DX Deep Vein Thrombosis Video Routine
10/05/24 Breakfast
1800 calorie (15 carb) Diabetic
At Your Request: Limited Participation
Basic Metabolic Panel IN AM
Complete Blood Count/No Diff IN AM
10/05/24 07:30
Insulin Aspart Corrective Low [Novolog Flexpen-Low Resistance] See Protocol SC AC
10/05/24 08:00
Clopidogrel Bisulfate [Plavix] 75 mg PO DAILY
Docusate Sodium [Colace] 100 mg PO BID
Ferrous Sulfate [Feosol] 325 mg PO DAILY
METFORMIN HCl [Glucophage] 500 mg PO BID AT 0800,1700
Sennosides [Senokot] 8.6 mg PO BID
10/05/24 14:00
Cefepime HCl [Maxipime] 2,000 mg IV Q12H
10/05/24 18:00
Enoxaparin Sodium [Lovenox] 40 mg SC QPM
10/05/24 22:00
Atenolol [Tenormin] 50 mg PO HS
Atorvastatin [Lipitor] 80 mg PO HS
Risperidone [Risperdal] 1 mg PO HS
Abnormal Lab Results
10/05/24
01:30
WBC 15.7 H 10^3/uL
(4.8-10.8)
RBC 3.15 L 10^6/uL
(4.20-5.40)
Hgb 9.0 L g/dL
(12.0-16.0)
Hct 27.4 L %
(37.0-47.0)
MCHC 32.8 L g/dL
(33.0-37.0)
RDW 16.4 H %
(11.5-14.5)
Abs Immat Gran (auto) 0.1 H 10^3/uL
(0-0.05)
Absolute Neuts (auto) 13.4 H 10^3/uL
(1.4-6.5)
Absolute Monos (auto) 0.9 H 10^3/uL
(0.1-0.6)
Immature Gran % 0.8 H %
(0-0.5)
Neutrophils % 85.1 H %
(42.2-75.2)
Lymphocytes % 8.1 L %
(20.5-51.1)
Sodium 134 L mmol/L
(135-145)
Chloride 96 L mmol/L
(98-107)
BUN 28 H mg/dl
(7-17)
Glucose 171 H mg/dl
(70-99)
Lactic Acid 3.5 H mmol/L
(0.7-2.0)
Ur Occult Blood Reflex 2+ A
(Negative)
Leukocyte Esterase Rfl 3+ A
(Negative)
Urine WBC (Reflex) 30-40 A /HPF
(0-5)
Urine Bacteria (Reflex) Few A
(Negative)
Urine Albumin (Reflex) 3+ A
(Neg - Trace)
10/05/24 01:30
10/05/24 01:30
Vital Signs
Initial and Last Documented VS:
Initial Vital Signs
Temp Pulse Resp BP Pulse Ox
100.6 F H 95 26 125/55 96
10/05/24 01:00 10/05/24 01:00 10/05/24 01:00 10/05/24 01:00 10/05/24 01:00
Last Documented Vital Signs
Temp Pulse Resp BP Pulse Ox
98.8 F 100 16 146/78 100
10/05/24 07:17 10/05/24 07:17 10/05/24 07:17 10/05/24 07:17 10/05/24 07:17
MDM/Problems Addressed
Differential Diagnosis Includes:
Significant concern for recurrent UTI/sepsis.
Patient at risk for immunocompromise with history of diabetes.
BP somewhat soft, will initiate IV fluids, initiate IV cefepime.
White blood cell count elevated at 15.7, mild anemia with hemoglobin of 9.
Chemistries show moderately elevated BUN of 28, random glucose 171. No acidosis.
Lactic acid is pending.
With fever, leukocytosis, UTI�patient meets criteria for sepsis.
Abdomen is soft without appreciable tenderness.
Patient did suffer a slow fall tonight witnessed by and, denies head injury nor loss of consciousness. She is noted to have superficial abrasion left anterior mcmanus without appreciable tenderness nor soft tissue swelling.
No indication for imaging.
Will admit to hospitalist service.
Chronic conditions affecting care: DM, HTN and Neurological disorder
*Pulse Oximetry
Patient hypoxic: no
*Lumber Straightened Interpretation
Rate: normal
Interpretation: normal
Rhythm: sinus
*Critical Care Note
Total Time (30-74mins, 75-104mins- exclusive of procedures): Not Applicable
ED Attending Note
-
Portions of this chart may have been created with voice recognition software.� Occasional wrong word or��sound alike� substitutions may have occurred due to the inherent limitations of voice recognition software.
Discharge Plan
Departure
Patient Disposition: Admit
Date of Disposition: 10/05/24
Time of Disposition: 02:29
Admit to: Med/Surg
Admit to doctor: Connie
Presentation/result/management discussed w/ accepting MD/DO: Hospitalist
Condition: Serious
Discharge Problem:
Urinary tract infection, Sepsis
Interventions
Interventions:
*Risk Screen - Suicide Last Done: 10/05/24 01:00
*General Assessment Last Done: 10/05/24 01:00
*Neglect/Abuse Screening Last Done: 10/05/24 05:20
ED- Fall Risk Assessment Last Done: 10/05/24 01:00
*ED COVID-19 Vaccine History Last Done: 10/05/24 01:00
*Nursing Disposition Last Done: 10/05/24 05:20
ED-Female Genitourinary Assessment Last Done: 10/05/24 01:00
Discharge Date and Time
Discharge Date/Time: 10/05/24 05:20
[2024-10-05] MEDS: MAXIPIME 2000 MG IV (02:30)
[2024-10-05 02:33] LABS: Lactic Acid 3.5 mmol/L (0.7-2.0)
[2024-10-05 02:38] LABS: COVID-19 Antigen Negative (Negative)
--- NOTE | 2024-10-05 03:10 | HPS.HSE ---
Family Physician
-
Family Physician: Kaela Herbert
Chief Complaint
-
Fever, urinary symptoms
History of Present Illness
This is a 79-year-old female with past medical history significant for recent CVA with left-sided weakness recovered, fall complicated by hip fracture status post ORIF, CKD, hypertension presenting to the emergency department with incontinence,
confusion and fevers at home.
Patient speaks Gujarati but also can understand some Macedonian but spouse mostly provided history. According to spouse patient had no prior history of urinary tract infections until following his fall and hip fracture. Since then she has had urinary
incontinence and urinary tract infections. Fortunately tract infection with about 4 months ago. She was treated with antiantibiotics and improved. However for the last month she has had ongoing urinary symptoms and has been on antibiotics.
Patient apparently had urinary incontinence and some dysuria. She had a positive UA and a according to family urine cultures with sensitivities to the antibiotic she was given. She has been on 7 days of amoxicillin/clavulanate, Bactrim and
cephalexin. Despite this she is continues to have lower urinary tract symptoms.
Today they reported that she has had increased lethargy decreased p.o. intake and low-grade fevers and mild tachycardia to about 102. She continues to have urinary incontinence at home. She appears to have some agitation and mild confusion. No
focal neurological deficits.
On arrival in the emergency department she had a blood pressure of 95/52 with a temperature of 100.6, pulse of 90, she was satting 98% on room air. She had a white count of 15.7, hemoglobin of 9 and platelet count of 241. Electrolytes were okay,
BUN/creatinine were normal. Glucose was 171. LFTs unremarkable. Lactic acid was elevated at 3.5. UA was markedly positive. Influenza and COVID test are negative.
Medical History
Past Medical History
Past Medical History: Reports CVA, HTN, Hypercholesterolemia, NIDDM and Renal Failure (CKD 3)
Past Surgical History: Reports Orthopedic (He fracture status post ORIF)
Social History
Tobacco: Non-smoker
Alcohol: None
Drug: None
Personal:
Living: With Family
Employment: Retired
Family History
Family History: Not pertinent
Allergies / Home Medications
Allergies reflects when Allergies were last updated in [employer].
Home Medications with original date entered in [employer]
Allergy/Medication List:
Allergies
Allergy/AdvReac Type Severity Reaction Status Date / Time
No Known Allergies Allergy Unverified 03/03/24 07:29
Home Medications
acetaminophen 500 mg tablet (Tylenol Extra Strength) 500 mg PO Q4HPRN PRN pain-mild 3 days #100 tabs 03/26/24
cholecalciferol (vitamin D3) 50 mcg (2,000 unit) tablet 50 mcg PO DAILY Supplement 30 days #30 tabs 03/26/24
clopidogrel 75 mg tablet 75 mg PO DAILY CVA 30 days #30 tabs 03/26/24
ferrous sulfate 325 mg (65 mg iron) tablet (FeroSul) 325 mg PO DAILY anemia 30 days #30 tabs 03/26/24
guaifenesin 100 mg/5 mL oral liquid 100 mg (5 mL) PO TIDPRN PRN cough 30 days #100 mL 03/26/24
lidocaine 4 % topical patch 1 patch topical DAILY pain in knee 30 days #30 ea 03/26/24
lidocaine 4 % topical patch 1 patch topical DAILY pain neck 30 days #30 ea 03/26/24
risperidone 1 mg tablet 1 mg PO HS insomnia 30 days #30 tabs 03/26/24
atenolol 50 mg tablet 50 mg PO HS Blood pressure 10/05/24
atorvastatin 10 mg tablet 80 mg PO HS cholesterol 10/05/24
docusate sodium 100 mg tablet 100 mg PO BID 10/05/24
metformin 1,000 mg tablet 500 mg PO BID AT 0800,1700 diabetes 10/05/24
sennosides 8.6 mg capsule (senna) 8.6 mg PO BID 10/05/24
Review of Systems
-
History Source: Patient and Family
Constitutional: Reports Fever
EENT: Reports No Symptoms
Cardiac: Reports No Symptoms
Abdomen/GI: Reports No Symptoms
: Reports Incontinence and Difficulty Voiding
Musculoskeletal: Reports No Symptoms
Skin: Reports No Symptoms
Neurological: Reports No Symptoms
Endocrine: Reports No Symptoms
Hematologic/Lymphatic: Reports No Symptoms
Psych: Reports No Symptoms
Physical Exam
Vital Signs
Vital Signs
Temp Pulse Resp BP Pulse Ox
100.6 F H 90 23 95/52 95
10/05/24 01:00 10/05/24 02:00 10/05/24 02:00 10/05/24 02:00 10/05/24 02:00
Physical Exam
General: Well Developed, Well Nourished, No Apparent Distress and Comfortable
HEENT: NormoCephalic, Anicteric, Moist mucous membranes and Atraumatic
Respiratory: Clear
Cardiac: S1/S2 and Regular Rhythm
Breast: Deferred by me
GI: Soft, Non Tender, Non Distended and Normal Bowel Sounds
Genito-urinary: Deferred by me and No costovertebral tender
Musculoskeletal: No Clubbing, No Cyanosis and No Edema
Skin: Warm
Neuro: AO x 3, Nonfocal/grossly intact and Facial Droop (chronic left sided facial droop)
Hematologic/Lymphatic: No Lymphadenopathy
Psych: Calm
Laboratory Results
-
10/05/24 01:30
10/05/24 01:30
Laboratory Results
Lactic Acid 3.5 mmol/L (0.7-2.0) H 10/05/24 01:30
Total Bilirubin 1.1 mg/dl (0.2-1.3) 10/05/24 01:30
AST 15 U/L (14-36) 10/05/24 01:30
ALT 13 U/L (0-35) 10/05/24 01:30
Alkaline Phosphatase 64 U/L (38-126) 10/05/24 01:30
Data Reviewed
-
Lab Data: Labs Reviewed by me
Old Records: Reviewed
Impression/Plan
-
IMPRESSION:
79-year-old female with history of CVA, hypertension, hyperlipidemia, diabetes recent fall with hip fracture status post ORIF who presents with urinary symptoms including incontinence, mild dysuria and some difficulty with voiding found to have a
positive UA. Patient has a recent history of repeated antibiotics for urinary symptoms without resolution. She has been on cephalexin Augmentin and Bactrim over the last month. UA is markedly positive, she has leukocytosis, she has a fever, she
has elevated lactic acid all consistent with pyelonephritis and sepsis.
PLAN:
1. Pyelonephritis with sepsis -possibly from resistant bacteria but etiology and cause of a resistant infection is unclear. Cannot rule out lower urinary tract or dysfunction as the etiology as well. She is currently hemodynamically stable after
IV fluids
- admit to med/surg
- blood cultures and urine cultures sent
- given prior abx use, will continue with cefepime for now
- bladder scan for post void residuals
- if b/s is abnormal, may need medical treatments for LUTS (mirabegron/oxybutinin)
- if b/s is normal and cultures is positive for chaparro sensitive infection, consider imaging
- she is neurologically intact at this time.
2. CVA
- continue aspirin/statin/plavix
3. HTN
- continue atenolol with hold parameters
4. DM II
- continue metformin
- sliding scale insulin
DVT PPX - lovenox sq
Code status - full code
--- NOTE | 2024-10-05 05:24 | PTCARENOTE ---
Patient arrived from ED to 321 via stretcher, pulled over from stretcher to bed with assist of 2 person. Patient is Gujarati speaking, understands minimal Greek. No complaints at this time. Arrived on 2LNC -- maintained for now. Skin intact to
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 Resting in bed comfortably, call mendez in reach. Will continue to monitor.
[2024-10-05 05:50] LABS: Lactic Acid 1.6 mmol/L (0.7-2.0)
[2024-10-05] MEDS: LR 1000 IV ×2 (06:15→20:34)
[2024-10-05 07:30] LABS: Glucose - Point of Care 153 mg/dl (70-99)
[2024-10-05] MEDS: STERILE WATER FOR INJECTION 10 ML IV ×2 (09:04→17:19)
[2024-10-05] MEDS: FEOSOL 325 MG PO (09:04)
[2024-10-05] MEDS: COLACE 100 MG PO ×2 (09:04→20:34)
[2024-10-05] MEDS: GLUCOPHAGE 500 MG PO ×2 (09:04→17:21)
[2024-10-05] MEDS: PLAVIX 75 MG PO (09:04)
[2024-10-05] MEDS: MAXIPIME 1000 MG IV ×2 (09:04→17:19)
[2024-10-05] MEDS: SENOKOT 8.6 MG PO ×2 (09:04→20:32)
[2024-10-05 10:10] LABS: Hematocrit 25.9 % (37.0-47.0); Hemoglobin 8.2 g/dL (12.0-16.0); Mean Corp Hgb Conc. 31.7 g/dL (33.0-37.0); Mean Corpuscular Hgb 28.1 pg (27.0-31.0); Mean Corpuscular Volume 88.7 fL (81.0-99.0); Mean Platelet Volume 9.9 fL (7.4-10.4); Platelet Count 217 10^3/uL (130-400); Red Blood Cell Count 2.92 10^6/uL (4.20-5.40); Red Cell Dist. Width 16.4 % (11.5-14.5)
[2024-10-05 10:54] LABS: Blood Urea Nitrogen 26 mg/dl (7-17); Calcium 8.8 mg/dl (8.4-10.2); Carbon Dioxide 21 mmol/L (22-30); Chloride 99 mmol/L (98-107); Estimated Creatinine Clearance 37 ml/min; Glucose 159 mg/dl (70-99); Potassium 3.9 mmol/L (3.5-5.1); Sodium 131 mmol/L (135-145); eGFR 57.66
--- NOTE | 2024-10-05 11:05 | W.PN.UPDATE ---
Update Note
Progress Note Update
Non-billable addendum
admitted with sepsis, recurrent UTIs
currently with minimal urine output and higher bladder scans, with SC planned
and son state patient has a uro-automobile assembler appointment next week
Assessment:
Severe sepsis (POA) from recurrent UTI
- d/w and Son, multiple UTIs since March, treated with Augmentin, Bactrim, Keflex. Unable to provide a prior urine culture report at this time. No prior imaging.
- Has a uro-automobile assembler appointment next week
- continue IVF. Lactate improved from 3.5 to normal
- for now; will continue IV cefepime pending cultures
- CT Abd/Pel without contrast
- continue bladder scans, SC protocol; may require Perez if ongoing issue
Hyponatremia
- continue IVF
Acute dilutional anemia on chronic anemia
- check indices
Hx of CVA
- continue ASA/Plavix/Statin
Essential HTN
- continue BB
Type 2 DM
- continue Metformin
- SSI
- A1c: pending
Hx of insomnia on Risperdal
DVT ppx: Lovenox
Code: Full
[2024-10-05] MEDS: NOVOLOG FLEXPEN-LOW RESISTANCE 1 UNITS SC ×3 (11:13→17:39)
[2024-10-05 15:35] LABS: Glucose - Point of Care 183 mg/dl (70-99)
--- NOTE | 2024-10-05 16:08 | CM ---
Alert awake oriented patient who lives with her Rayray who lives in a 1 story home with 2 steps to enter and bed bathroom on first floor. She is assisted in all activities of daily living.Spoke with son Connor due to he speaks Indian. Will
need PT Ot for dc planning.
Wheelchair and walker
She has had [facility] and [facility]
Pharmacy [facility]
PCP DR Herbert
PLAN will need PT OT for dc planning
--- NOTE | 2024-10-05 16:10 | CHAP ---
Ms. Connelly said things were 'good' when I asked how she is doing. Has good support from her . Emotional support provided, and assurance given of our on-going availability.
[2024-10-05] MEDS: MIRALAX 17 GRAMS PO (17:17)
[2024-10-05] MEDS: LOVENOX 40 MG SC (17:18)
[2024-10-05 17:38] LABS: Glucose - Point of Care 175 mg/dl (70-99)
[2024-10-05] MEDS: LIPITOR 80 MG PO (20:32)
[2024-10-05] MEDS: TENORMIN 50 MG PO (20:32)
[2024-10-05] MEDS: RISPERDAL 1 MG PO (20:34)
[2024-10-05 22:49] LABS: Glucose - Point of Care 239 mg/dl (70-99)
[2024-10-06] MEDS: STERILE WATER FOR INJECTION 10 ML IV ×3 (02:55→17:26)
[2024-10-06] MEDS: MAXIPIME 1000 MG IV ×3 (02:56→17:25)
[2024-10-06 07:02] LABS: Hematocrit 23.7 % (37.0-47.0); Hemoglobin 7.7 g/dL (12.0-16.0); Mean Corp Hgb Conc. 32.5 g/dL (33.0-37.0); Mean Corpuscular Hgb 28.1 pg (27.0-31.0); Mean Corpuscular Volume 86.5 fL (81.0-99.0); Mean Platelet Volume 10.6 fL (7.4-10.4); Platelet Count 214 10^3/uL (130-400); Red Blood Cell Count 2.74 10^6/uL (4.20-5.40); Red Cell Dist. Width 16.2 % (11.5-14.5); White Blood Cell Count 8.2 10^3/uL (4.8-10.8)
[2024-10-06 07:27] LABS: Blood Urea Nitrogen 26 mg/dl (7-17); Calcium 8.6 mg/dl (8.4-10.2); Carbon Dioxide 22 mmol/L (22-30); Chloride 100 mmol/L (98-107); Estimated Creatinine Clearance 41 ml/min; Glucose 167 mg/dl (70-99); Iron 22 ug/dl (37-170); Potassium 3.8 mmol/L (3.5-5.1); Sodium 133 mmol/L (135-145); eGFR > 60.00
[2024-10-06 07:36] LABS: Percent Saturation 11 % (20-50); Total Iron Binding Capacity 200 ug/dl (265-497)
[2024-10-06 08:27] LABS: Glucose - Point of Care 196 mg/dl (70-99)
[2024-10-06 08:32] LABS: Folate 5.9 ng/ml (2.76-20); Vitamin B12 994 pg/ml (239-931)
--- NOTE | 2024-10-06 08:36 | W.PN.HOSP.TC ---
Today's Communication/Plan
-
follow bladder scans
continue IVF, IV Cefepime
follow cultures
PT/OT
Assessment / Plan
Assessment / Plan
Assessment:
Severe sepsis (POA) from recurrent UTI
- d/w and Son, multiple UTIs since March, treated with Augmentin, Bactrim, Keflex. Unable to provide a prior urine culture report at this time. No prior imaging.
- Has a uro-health care marketing specialist appointment next week
- continue IVF. Lactate improved from 3.5 to normal
- continue IV cefepime, day 2 pending cultures
- CT Abd/Pel without contrast negative. no evidence of obstructive uropathy
- continue bladder scans, SC protocol; may require Perez if ongoing issue
Hyponatremia
- continue IVF
Acute dilutional anemia on chronic anemia
- mild iron deficiency; add oral iron at discharge
Hx of CVA
- continue ASA/Plavix/Statin
Essential HTN
- continue BB
Type 2 DM
- continue Metformin
- SSI
- A1c: pending
Hx of insomnia on Risperdal
DVT ppx: Lovenox
Code: Full
Anticipated Discharge: 24 - 48 hours
Subjective/Interval History
-
Date of Service: October 06, 2024
feeling slightly better today
less pain
voided x 2 overnight, BS <300 post-void. did not require SC
Objective Data
-
Labs:
Laboratory Results
10/06/24
06:38
WBC 8.2
Hgb 7.7 L
Hct 23.7 L
Plt Count 214
Sodium 133 L
Potassium 3.8
Chloride 100
Carbon Dioxide 22
BUN 26 H
Creatinine 0.9
Glucose 167 H
Calcium 8.6
Vital Signs:
Vital Signs
Temp Pulse Resp BP Pulse Ox
99.2 F 108 18 150/77 93
10/05/24 23:39 10/05/24 23:39 10/05/24 23:39 10/05/24 23:39 10/05/24 23:39
I&O
10/05/24 10/06/24 10/07/24
06:59 06:59 06:59
Intake Total 1999 1420 / 1420
Output Total 275 / 275 550 / 550
Balance 1725 / 1725 870 / 870
Physical Exam
-
General: No Apparent Distress
HEENT: Normocephalic and Atraumatic
Respiratory: Clear to Auscultation; Negative Wheezes or Rales
Cardiac: Regular Rhythm and S1/S2
GI: Soft and Nontender
Genito-urinary: No Costovertebral Tender
Neuro: AO x 3
Psych: Calm
Data Reviewed
-
Total Time Spent with Patient (in minutes): 44
Labs: Labs Reviewed by me
[2024-10-06 08:38] VITALS: BP 141/65
[2024-10-06] MEDS: MIRALAX 17 GRAMS PO (08:58)
[2024-10-06] MEDS: SENOKOT 8.6 MG PO ×2 (08:58→19:48)
[2024-10-06] MEDS: FEOSOL 325 MG PO (08:58)
[2024-10-06] MEDS: GLUCOPHAGE 500 MG PO ×2 (08:58→17:22)
[2024-10-06] MEDS: COLACE 100 MG PO ×2 (08:58→19:48)
[2024-10-06] MEDS: PLAVIX 75 MG PO (08:59)
[2024-10-06] MEDS: NOVOLOG FLEXPEN-LOW RESISTANCE 1 UNITS SC ×2 (09:02→13:38)
[2024-10-06] MEDS: LR 1000 IV (11:19)
[2024-10-06 12:15] LABS: Glycohemoglobin (HgbA1c) 5.9 % (4.0-5.6)
[2024-10-06 13:38] LABS: Glucose - Point of Care 213 mg/dl (70-99)
[2024-10-06 16:14] VITALS: BP 131/63; PULSE 94; O2SAT 97
[2024-10-06 16:15] VITALS: BP 131/63; O2SAT 97
[2024-10-06 16:23] VITALS: BP 145/73
[2024-10-06 16:47] LABS: Glucose - Point of Care 243 mg/dl (70-99)
[2024-10-06] MEDS: NOVOLOG FLEXPEN-LOW RESISTANCE 2 UNITS SC (17:21)
[2024-10-06] MEDS: LOVENOX 40 MG SC (17:22)
[2024-10-06] MEDS: RISPERDAL 1 MG PO (21:46)
[2024-10-06] MEDS: LIPITOR 80 MG PO (21:46)
[2024-10-06] MEDS: TENORMIN 50 MG PO (21:46)
[2024-10-06 22:10] LABS: Glucose - Point of Care 234 mg/dl (70-99)
[2024-10-06 23:05] VITALS: BP 154/77
[2024-10-07] MEDS: STERILE WATER FOR INJECTION 10 ML IV ×2 (01:26→09:07)
[2024-10-07] MEDS: MAXIPIME 1000 MG IV ×2 (01:26→09:06)
[2024-10-07] MEDS: LR 1000 IV (03:09)
[2024-10-07 06:54] LABS: Hematocrit 24.5 % (37.0-47.0); Hemoglobin 8.1 g/dL (12.0-16.0); Mean Corp Hgb Conc. 33.1 g/dL (33.0-37.0); Mean Corpuscular Volume 84.8 fL (81.0-99.0); Mean Platelet Volume 10.4 fL (7.4-10.4); Platelet Count 202 10^3/uL (130-400); Red Blood Cell Count 2.89 10^6/uL (4.20-5.40); Red Cell Dist. Width 15.8 % (11.5-14.5); White Blood Cell Count 5.8 10^3/uL (4.8-10.8)
[2024-10-07 07:26] LABS: Glucose - Point of Care 188 mg/dl (70-99)
[2024-10-07 07:30] VITALS: BP 166/78
[2024-10-07 08:05] LABS: Blood Urea Nitrogen 18 mg/dl (7-17); Calcium 8.3 mg/dl (8.4-10.2); Carbon Dioxide 24 mmol/L (22-30); Chloride 102 mmol/L (98-107); Estimated Creatinine Clearance 46 ml/min; Glucose 196 mg/dl (70-99); Potassium 3.8 mmol/L (3.5-5.1); Sodium 134 mmol/L (135-145); eGFR > 60.00
[2024-10-07] MEDS: GLUCOPHAGE 500 MG PO ×2 (08:13→18:18)
[2024-10-07] MEDS: NOVOLOG FLEXPEN-LOW RESISTANCE 1 UNITS SC ×2 (08:13→12:57)
[2024-10-07] MEDS: PLAVIX 75 MG PO (08:14)
[2024-10-07] MEDS: SENOKOT 8.6 MG PO ×2 (08:14→19:51)
[2024-10-07] MEDS: MIRALAX 17 GRAMS PO (08:14)
[2024-10-07] MEDS: FEOSOL 325 MG PO (08:14)
[2024-10-07] MEDS: COLACE 100 MG PO ×2 (08:14→19:51)
--- NOTE | 2024-10-07 11:27 | W.PN.HOSP.TC ---
Today's Communication/Plan
-
dc home with VN
Assessment / Plan
Assessment / Plan
Assessment:
Severe sepsis (POA) from recurrent UTI
- d/w and Son, multiple UTIs since March, treated with Augmentin, Bactrim, Keflex. Unable to provide a prior urine culture report at this time. No prior imaging.
- Has a uro-bilingual teacher aide appointment next week
- Urine culture negative here although family reports a few days of oral abx prior to ER visit
- at discharge, will complete 10 days Abx (Cefdinir x 8 further days)
- CT Abd/Pel without contrast negative. no evidence of obstructive uropathy
- Has a uro-bilingual teacher aide appointment this week for uro-dynamic testing evaluation
Hyponatremia
- resolved with IVF
Acute dilutional anemia on chronic anemia
- stable
- OP f/u
Hx of CVA
- continue ASA/Plavix/Statin
Essential HTN
- continue BB
Type 2 DM
- continue Metformin
- SSI
- A1c: 5.9%
Hx of insomnia on Risperdal
DVT ppx: Lovenox
Code: Full
More than 30 minutes spent in discharge including
Final examination of the patient
Summarizing hospital stay
Instructions for continuing care to all relevant caregivers
Preparation of discharge records, prescriptions, and referral forms
Total time spent (in minutes):41
Anticipated Discharge: Today
Subjective/Interval History
-
Date of Service: October 07, 2024
no complaints at present
feels much improved
Objective Data
-
Labs:
Laboratory Results
10/07/24
06:43
WBC 5.8
Hgb 8.1 L
Hct 24.5 L
Plt Count 202
Sodium 134 L
Potassium 3.8
Chloride 102
Carbon Dioxide 24
BUN 18 H
Creatinine 0.8
Glucose 196 H
Calcium 8.3 L
Vital Signs:
Vital Signs
Temp Pulse Resp BP Pulse Ox
98.4 F 82 20 166/78 96
10/07/24 07:30 10/07/24 07:30 10/07/24 07:30 10/07/24 07:30 10/07/24 07:30
I&O
10/06/24 10/07/24 10/08/24
06:59 06:59 06:59
Intake Total 1420 / 1420 1050 / 1050
Output Total 550 / 550
Balance 870 / 870 1050 / 1050
Physical Exam
-
General: No Apparent Distress
HEENT: Normocephalic and Atraumatic
Respiratory: Negative Wheezes
Cardiac: Regular Rhythm and S1/S2
GI: Soft and Nontender
Genito-urinary: No Costovertebral Tender
Neuro: AO x 3
Psych: Calm
Data Reviewed
-
Total Time Spent with Patient (in minutes): 41
Labs: Labs Reviewed by me
--- NOTE | 2024-10-07 11:34 | W.DS.TRANS ---
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
-
Discharge Instructions:
Discharge Diagnosis/Procedures UTI
Diet Diabetic, Carb Controlled
Activity As tolerated
Other Services PT,OT
Instructions:
Stand-Alone Forms:
Changes to Home Medications: No
Discharge Medications:
DC Medications w/original date entered in [employer]
acetaminophen 500 mg tablet (Tylenol Extra Strength) 500 mg PO Q4HPRN PRN pain-mild 3 days #100 tabs 03/26/24
cholecalciferol (vitamin D3) 50 mcg (2,000 unit) tablet 50 mcg PO DAILY Supplement 30 days #30 tabs 03/26/24
clopidogrel 75 mg tablet 75 mg PO DAILY CVA 30 days #30 tabs 03/26/24
ferrous sulfate 325 mg (65 mg iron) tablet (FeroSul) 325 mg PO DAILY anemia 30 days #30 tabs 03/26/24
guaifenesin 100 mg/5 mL oral liquid 100 mg (5 mL) PO TIDPRN PRN cough 30 days #100 mL 03/26/24
lidocaine 4 % topical patch 1 patch topical DAILY pain in knee 30 days #30 ea 03/26/24
lidocaine 4 % topical patch 1 patch topical DAILY pain neck 30 days #30 ea 03/26/24
risperidone 1 mg tablet 1 mg PO HS insomnia 30 days #30 tabs 03/26/24
atenolol 50 mg tablet 50 mg PO HS Blood pressure 10/05/24
atorvastatin 10 mg tablet 80 mg PO HS cholesterol 10/05/24
docusate sodium 100 mg tablet 100 mg PO BID 10/05/24
metformin 1,000 mg tablet 500 mg PO BID AT 0800,1700 diabetes 10/05/24
sennosides 8.6 mg capsule (senna) 8.6 mg PO BID 10/05/24
cefdinir 300 mg capsule 300 mg PO BID #16 caps 10/07/24
Home Medication Changes
Pending Results: No
Total time spent discharging patient (in min): 41
[2024-10-07 11:58] LABS: Glucose - Point of Care 186 mg/dl (70-99)
[2024-10-07] MEDS: LR IV (12:57)
--- NOTE | 2024-10-07 14:21 | CM ---
Received notification that patient is cleared for discharge. Met with patient and her spouse who was at bedside. Patient stated that he would not be able to take care of her at home and requested SNF. He stated that she had been to [facility] in
the past and requested that facility again. He confirmed that if they are full, alternate facilities can be sent referrals that are close to their residence. Referrals sent to: [facility], [facility], [facility], and [facility]. Will await
determinations. Patient will need authorization prior to transfer. MD and RN updated.
Plan: Case management will continue to follow and assist with discharge planning. SNF when bed and auth obtained.
[2024-10-07 15:30] VITALS: BP 170/78
[2024-10-07 16:24] VITALS: BP 151/83; PULSE 87; O2SAT 95
[2024-10-07 16:50] LABS: Glucose - Point of Care 239 mg/dl (70-99)
[2024-10-07] MEDS: NOVOLOG FLEXPEN-LOW RESISTANCE 2 UNITS SC (18:18)
[2024-10-07] MEDS: LOVENOX 40 MG SC (18:18)
[2024-10-07] MEDS: OMNICEF 300 MG PO (19:51)
[2024-10-07] MEDS: TENORMIN 50 MG PO (21:23)
[2024-10-07] MEDS: RISPERDAL 1 MG PO (21:23)
[2024-10-07] MEDS: LIPITOR 80 MG PO (21:23)
[2024-10-07 21:30] LABS: Glucose - Point of Care 214 mg/dl (70-99)
[2024-10-07 23:42] VITALS: BP 178/94
[2024-10-08 07:00] VITALS: BP 159/70
[2024-10-08 07:13] LABS: Hematocrit 26.4 % (37.0-47.0); Hemoglobin 8.5 g/dL (12.0-16.0); Mean Corp Hgb Conc. 32.2 g/dL (33.0-37.0); Mean Corpuscular Hgb 27.8 pg (27.0-31.0); Mean Corpuscular Volume 86.3 fL (81.0-99.0); Mean Platelet Volume 10.4 fL (7.4-10.4); Platelet Count 240 10^3/uL (130-400); Red Blood Cell Count 3.06 10^6/uL (4.20-5.40); White Blood Cell Count 4.7 10^3/uL (4.8-10.8)
[2024-10-08 07:40] LABS: Blood Urea Nitrogen 19 mg/dl (7-17); Calcium 8.7 mg/dl (8.4-10.2); Carbon Dioxide 25 mmol/L (22-30); Chloride 101 mmol/L (98-107); Estimated Creatinine Clearance 46 ml/min; Glucose 196 mg/dl (70-99); Potassium 3.9 mmol/L (3.5-5.1); Sodium 135 mmol/L (135-145); eGFR > 60.00
[2024-10-08] MEDS: GLUCOPHAGE 500 MG PO ×2 (07:49→17:26)
[2024-10-08] MEDS: PLAVIX 75 MG PO (07:49)
[2024-10-08] MEDS: MIRALAX 17 GRAMS PO (07:49)
[2024-10-08] MEDS: SENOKOT 8.6 MG PO ×2 (07:49→19:32)
[2024-10-08] MEDS: COLACE 100 MG PO ×2 (07:50→19:32)
[2024-10-08] MEDS: FEOSOL 325 MG PO (07:50)
[2024-10-08] MEDS: OMNICEF 300 MG PO ×2 (07:50→19:32)
[2024-10-08 08:17] LABS: Glucose - Point of Care 200 mg/dl (70-99)
[2024-10-08] MEDS: NOVOLOG FLEXPEN-LOW RESISTANCE 2 UNITS SC ×2 (08:50→17:27)
--- NOTE | 2024-10-08 11:12 | W.PN.HOSP.TC ---
Today's Communication/Plan
-
Medically stable for dc to SNF pending bed/auth. CM aware.
Assessment / Plan
Assessment / Plan
Assessment:
Severe sepsis (POA) from recurrent UTI
- d/w and Son, multiple UTIs since March, treated with Augmentin, Bactrim, Keflex. Unable to provide a prior urine culture report at this time. No prior imaging.
- Urine culture negative here although family reports a few days of oral abx prior to ER visit
- at discharge, will complete 10 days Abx (Cefdinir x 7 further days)
- CT Abd/Pel without contrast negative. no evidence of obstructive uropathy
- Has a uro-cosmetology professor appointment this week for uro-dynamic testing evaluation
Hyponatremia
- resolved with IVF
Acute dilutional anemia on chronic anemia
- stable
- OP f/u
Hx of CVA
- continue ASA/Plavix/Statin
Essential HTN
- continue BB
Type 2 DM
- continue Metformin
- SSI
- A1c: 5.9%
Hx of insomnia on Risperdal
DVT ppx: Lovenox
Code: Full
More than 30 minutes spent in discharge including
Final examination of the patient
Summarizing hospital stay
Instructions for continuing care to all relevant caregivers
Preparation of discharge records, prescriptions, and referral forms
Total time spent (in minutes):41
Anticipated Discharge: Today
Subjective/Interval History
-
Date of Service: October 08, 2024
no overnight events
feels comfortable
awaiting SNF bed
Objective Data
-
Labs:
Laboratory Results
10/08/24
06:40
WBC 4.7 L
Hgb 8.5 L
Hct 26.4 L
Plt Count 240
Sodium 135
Potassium 3.9
Chloride 101
Carbon Dioxide 25
BUN 19 H
Creatinine 0.8
Glucose 196 H
Calcium 8.7
Vital Signs:
Vital Signs
Temp Pulse Resp BP Pulse Ox
98.0 F 82 18 159/70 98
10/08/24 07:00 10/08/24 07:00 10/08/24 07:00 10/08/24 07:00 10/08/24 07:00
I&O
10/07/24 10/08/24 10/09/24
06:59 06:59 06:59
Intake Total 1050 / 1050 540 / 540
Balance 1050 / 1050 540 / 540
Physical Exam
-
General: No Apparent Distress
HEENT: Normocephalic and Atraumatic
Respiratory: Negative Wheezes
Cardiac: Regular Rhythm and S1/S2
GI: Soft and Nontender
Genito-urinary: No Costovertebral Tender
Musculoskeletal: No Edema
Neuro: AO x 3
Hematologic / Lymphatic: No Lymphadenopathy
Psych: Calm
Data Reviewed
-
Total Time Spent with Patient (in minutes): 41
Labs: Labs Reviewed by me
[2024-10-08 12:03] LABS: Glucose - Point of Care 263 mg/dl (70-99)
[2024-10-08] MEDS: NOVOLOG FLEXPEN-LOW RESISTANCE 3 UNITS SC (12:32)
[2024-10-08 15:00] VITALS: BP 142/71
[2024-10-08 15:44] LABS: Glucose - Point of Care 229 mg/dl (70-99)
--- NOTE | 2024-10-08 15:56 | CM ---
Addendum entered by CATRACHO Steward 10/08/24 17:01:
Placed a call to patient's insurance however hold times were exceeding an hour therefore making it difficult to get a transfer to SNF timely. Will start again in am.
Original Note:
Patient accepted at [facility] and [facility]. Placed a call to both and both admissions staff confirmed bed availability. Spoke with patient's spouse who stated that he would rather patient go to [facility] as it is closer to their home.
Placed a call to Gabi in admissions at [facility] who stated that she can accept patient. NPI#s for hopeful auth# Facility [id number] and [id number]
Patient updated as well as RN. Will attempt to obtain authorization.
Plan: Case management will continue to follow and assist with discharge planning.
--- NOTE | 2024-10-08 17:13 | PTCARENOTE ---
Report given to Anders balderas Ariton on at his request. Sharda will be called on day of actual discharge () to update pt condition
[2024-10-08] MEDS: LOVENOX 40 MG SC (17:26)
[2024-10-08 21:15] LABS: Glucose - Point of Care 191 mg/dl (70-99)
[2024-10-08] MEDS: RISPERDAL 1 MG PO (21:17)
[2024-10-08] MEDS: TENORMIN 50 MG PO (21:17)
[2024-10-08] MEDS: LIPITOR 80 MG PO (21:17)
[2024-10-08 23:00] VITALS: BP 152/80
[2024-10-08 23:07] VITALS: BP 152/80
--- NOTE | 2024-10-09 02:54 | DOWNTIME ---
There was a [employer] Client Sample Case [employer] Downtime on 10/09/2024 from 0100 to 10/09/2023 at 0235 . Downtime documentation of patient's care, including medication administrations, has been reconciled in the electronic record per guidelines. Refer to the
patient's paper chart under the miscellaneous tab to see printed paper medication records and downtime forms.
[2024-10-09 07:47] LABS: Glucose - Point of Care 213 mg/dl (70-99)
[2024-10-09] MEDS: COLACE 100 MG PO (07:56)
[2024-10-09] MEDS: SENOKOT 8.6 MG PO (07:56)
[2024-10-09] MEDS: OMNICEF 300 MG PO (07:56)
[2024-10-09] MEDS: GLUCOPHAGE 500 MG PO (07:56)
[2024-10-09] MEDS: PLAVIX 75 MG PO (07:57)
[2024-10-09] MEDS: NOVOLOG FLEXPEN-LOW RESISTANCE 2 UNITS SC (07:57)
[2024-10-09] MEDS: FEOSOL 325 MG PO (07:57)
[2024-10-09] MEDS: MIRALAX 17 GRAMS PO (07:58)
[2024-10-09 08:04] VITALS: BP 156/74
--- NOTE | 2024-10-09 08:30 | PTCARENOTE ---
and son at bedside. Eager to get pt to a [facility] apt then transport her to [place]. Case management notified. Awaiting auth. Family updated. [facility] office notified.
[2024-10-09 08:52] LABS: COVID-19 Antigen Negative (Negative)
--- NOTE | 2024-10-09 10:05 | CM ---
Late entry note 10/08
Received call from patient's spouse after hours who stated that patient had an appointment 10/09 at 9:00 and he wanted to know if he would be able to take her to a previously scheduled appointment. Explanation was provided to patient's spouse that
patient would be unable to leave until authorization is obtained for SNF and attending has medically cleared patient for discharge. Patient's spouse was advised of steps and that it may take a day to get discharge plan in place. Patient's spouse
expressed understanding.
10/09/24. Per multiple accounts from SNF and dept. patient's spouse has been calling dept all morning as well as [facility] stating that he needs to take patient to her appointment. was able to obtain urgent authorization from [facility] for
today, however patient's spouse was upset that his missed the appointment. Spoke with attending and RN. Attending stated that he will explain process to patient's spouse.
Met with patient's spouse and son at bedside. All steps in process in regard to getting bed at facility and authorization explained to patient's son. He spoke with patient's spouse who stated that he understood and will transport patient to
facility.
Received authorization #[id number] from [facility] 6 days 10/09-10/14 NRD 10/14 phone for review [phone]
Placed a call to Gabi who confirmed that she can take patient today. # For report [phone]
Gabi requested patient after 11:00. Patient's son to transport.
Attending working on getting another appointment for patient as she was unable to go to her appointment this am.
Plan: Case management will continue to follow and assist with discharge planning. [facility].
--- NOTE | 2024-10-09 11:25 | W.PN.HOSP.TC ---
Today's Communication/Plan
-
dc SNF
Assessment / Plan
Assessment / Plan
Assessment:
Severe sepsis (POA) from recurrent UTI
- d/w and Son, multiple UTIs since March, treated with Augmentin, Bactrim, Keflex. Unable to provide a prior urine culture report at this time. No prior imaging.
- Urine culture negative here although family reports a few days of oral abx prior to ER visit
- at discharge, will complete 10 days Abx with Cefdinir
- CT Abd/Pel without contrast negative. no evidence of obstructive uropathy
- Has a uro-strap cutter appointment for uro-dynamic testing evaluation
Hyponatremia
- resolved with IVF
Acute dilutional anemia on chronic anemia
- stable
- OP f/u
Hx of CVA
- continue ASA/Plavix/Statin
Essential HTN
- continue BB
Type 2 DM
- continue Metformin
- SSI
- A1c: 5.9%
Hx of insomnia on Risperdal
DVT ppx: Lovenox
Code: Full
More than 30 minutes spent in discharge including
Final examination of the patient
Summarizing hospital stay
Instructions for continuing care to all relevant caregivers
Preparation of discharge records, prescriptions, and referral forms
Total time spent (in minutes):41
Anticipated Discharge: Today
Subjective/Interval History
-
Date of Service: October 09, 2024
seen earlier this AM, late entry
doing well
for SNF
Objective Data
-
Vital Signs:
Vital Signs
Temp Pulse Resp BP Pulse Ox
98.6 F 91 20 156/74 96
10/09/24 08:04 10/09/24 08:04 10/09/24 08:04 10/09/24 08:04 10/09/24 08:04
I&O
10/08/24 10/09/24 10/10/24
06:59 06:59 06:59
Intake Total 540 / 540 600 / 600
Balance 540 / 540 600 / 600
Physical Exam
-
General: No Apparent Distress
HEENT: Normocephalic and Atraumatic
Respiratory: Negative Wheezes
Cardiac: Regular Rhythm and S1/S2
GI: Soft and Nontender
Musculoskeletal: No Edema
Neuro: AO x 3
Psych: Calm
Data Reviewed
-
Total Time Spent with Patient (in minutes): 41
Labs: Labs Reviewed by me
== END 2024-10-09 11:13 | DRG 872 ==
LOC: 3 WEST ACU 04:13
PROVIDERS: ADMITTING PHYSICIAN Internal Medicine; ATTENDING PHYSICIAN Internal Medicine; EMERGENCY PHYSICIAN Emergency Medicine; FAMILY PHYSICIAN Family Medicine
DX: A41.9 Sepsis, unspecified organism (principal); N39.0 Urinary tract infection, site not specified; E87.1 Hypo-osmolality and hyponatremia; I12.9 Hypertensive chronic kidney disease with stage 1 through stage 4 chronic kidney disease, or unspecified chronic kidney disease; E11.22 Type 2 diabetes mellitus with diabetic chronic kidney disease; N18.30 Chronic kidney disease, stage 3 unspecified; E78.00 Pure hypercholesterolemia, unspecified; D63.1 Anemia in chronic kidney disease; K59.09 Other constipation; G47.00 Insomnia, unspecified; R33.8 Other retention of urine; Z86.73 Personal history of transient ischemic attack (TIA), and cerebral infarction without residual deficits; Z79.82 Long term (current) use of aspirin; Z79.02 Long term (current) use of antithrombotics/antiplatelets; Z79.84 Long term (current) use of oral hypoglycemic drugs; Z79.899 Other long term (current) drug therapy; Z11.52 Encounter for screening for COVID-19
CPT/HCPCS: 51701; 74176; 80048; 80053; 81003; 81015; 82607; 82728; 82746; 82962; 83036; 83540; 83550; 83605; 85025; 85027; 87040; 87086; 87502; 87811; 96361; 96374; 97116; 97163; 97166; 99285

== ENCOUNTER 2024-12-13 16:01 | Inpatient (IN) | payer OTHER, SELFPAY ==
[2024-12-13 13:09] VITALS: BP 111/72
[2024-12-13 13:42] LABS: % Basophils 0.2 % (0-2); % Eosinophils 0.1 % (0-6); % Immature Granulocytes 0.5 % (0-0.5); % Lymphocytes 10.6 % (20.5-51.1); % Monocytes 7.4 % (1.7-9.3); % Neutrophils 81.2 % (42.2-75.2); Absolute Immature Granulocytes 0.1 10^3/uL (0-0.05); Absolute Lymphocytes 1.5 10^3/uL (1.2-3.4); Absolute Monocytes 1.1 10^3/uL (0.1-0.6); Absolute Neutrophils 11.7 10^3/uL (1.4-6.5); Hematocrit 32.6 % (37.0-47.0); Mean Corp Hgb Conc. 33.7 g/dL (33.0-37.0); Mean Corpuscular Hgb 28.2 pg (27.0-31.0); Mean Corpuscular Volume 83.6 fL (81.0-99.0); Mean Platelet Volume 10.2 fL (7.4-10.4); Nucleated Red Blood Cells % 0 %; Platelet Count 154 10^3/uL (130-400); Red Cell Dist. Width 14.2 % (11.5-14.5); White Blood Cell Count 14.4 10^3/uL (4.8-10.8)
[2024-12-13 13:56] LABS: ALT (SGPT) 19 U/L (0-35); AST (SGOT) 18 U/L (14-36); Albumin 4.3 g/dl (3.5-5.0); Alkaline Phosphatase 49 U/L (38-126); Blood Urea Nitrogen 24 mg/dl (7-17); Carbon Dioxide 24 mmol/L (22-30); Chloride 97 mmol/L (98-107); Glucose 154 mg/dl (70-99); Potassium 4.2 mmol/L (3.5-5.1); Sodium 134 mmol/L (135-145); Total Bilirubin 1.1 mg/dl (0.2-1.3); Total Protein 7.3 g/dl (6.3-8.2); eGFR 46.33
--- NOTE | 2024-12-13 14:05 | ED.GENMED ---
History of Present Illness
General
Chief Complaint: Urinary Symptoms
Source: patient and spouse
Exam Limitations: none
Time Seen by Provider: 12/13/24 13:52
History of Present Illness
History of Present Illness:
See MDM
Past History
Past History
ED Past Medical History: CVA, HTN, Hypercholesterolemia, NIDDM and Other (Frequent UTIs)
ED Past Surgical History: and Orthopedic (Laminectomy; left hip fracture repair)
Social History
Tobacco: Non-smoker
Alcohol: None
Drug: None
Personal:
Living: with family
Family History
Family History: Other (Noncontributory)
Phy Exam
Physical Exam
Physical Exam:
See MDM
Course
Orders/Labs/Results
Orders:
Orders
12/13/24 13:20
Complete Blood Count/With Diff Urgent
Comprehensive Metabolic Panel Urgent
12/13/24 14:04
Straight cath- Treatment ONCE
12/13/24 14:05
Electrocardiogram (*1) Urgent
Reason for Study: Fatigue / Weakness
EKG- Treatment ONCE
12/13/24 14:14
0.9% Sodium Chloride 1000 ml [Nss] 1,000 ml IV BOLUS
12/13/24 14:26
Urinalysis Reflex To Culture Urgent
Date Specimen was Collected: 12/13/24
Time Specimen was Collected: 13:14
Urine Microscopic Reflex Cult Urgent
Urine Culture Urgent
ALIZE Source: U
Specimen Description:
Date Specimen was Collected: 12/13/24
Time Specimen was Collected: 13:14
12/13/24 14:48
Cefepime HCl [Maxipime] 1,000 mg IV NOW STA
Abnormal Lab Results
12/13/24 12/13/24
13:20 14:26
WBC 14.4 H 10^3/uL
(4.8-10.8)
RBC 3.90 L 10^6/uL
(4.20-5.40)
Hgb 11.0 L g/dL
(12.0-16.0)
Hct 32.6 L %
(37.0-47.0)
Abs Immat Gran (auto) 0.1 H 10^3/uL
(0-0.05)
Absolute Neuts (auto) 11.7 H 10^3/uL
(1.4-6.5)
Absolute Monos (auto) 1.1 H 10^3/uL
(0.1-0.6)
Neutrophils % 81.2 H %
(42.2-75.2)
Lymphocytes % 10.6 L %
(20.5-51.1)
Sodium 134 L mmol/L
(135-145)
Chloride 97 L mmol/L
(98-107)
BUN 24 H mg/dl
(7-17)
Creatinine 1.2 H mg/dL
(0.6-1.0)
Glucose 154 H mg/dl
(70-99)
Ur Occult Blood Reflex 4+ A
(Negative)
Leukocyte Esterase Rfl 3+ A
(Negative)
Urine Albumin (Reflex) 3+ A
(Neg - Trace)
12/13/24 13:20
12/13/24 13:20
Vital Signs
Initial and Last Documented VS:
Initial Vital Signs
Temp Pulse Resp BP Pulse Ox
98.4 F 76 20 111/72 100
12/13/24 13:09 12/13/24 13:09 12/13/24 13:09 12/13/24 13:09 12/13/24 13:09
Last Documented Vital Signs
Temp Pulse Resp BP Pulse Ox
98.4 F 76 20 111/72 100
12/13/24 13:09 12/13/24 13:09 12/13/24 13:09 12/13/24 13:09 12/13/24 13:09
MDM/Problems Addressed
Differential Diagnosis Includes:
HPI and MDM Narrative:
79-year-old female presenting with for evaluation of generalized weakness and persistent UTI symptoms. This has been ongoing for the past several months. states she was on many different antibiotics. He is now concerned because
she is so weak and fatigued that she is having trouble walking with her walker
On exam, she is weak and fatigued. He has a soft nontender abdomen. She does appear mildly dry. Will obtain urinalysis and basic blood work. Patient will ultimately require admission given her general state
Physical exam
General: Weak and fatigued
HEENT: protecting airway. Dry mucous membranes
Neck: appears supple
CV: No evidence of cyanosis
Resp: No accessory muscle use
Abd: Non-distended. Soft and nontender
Extremities: No deformities
Neuro: alert
Psych: Normal affect
Skin: Intact
Problems Addressed including Acute and Chronic Conditions affecting care:
1. Generalized weakness
Acuity: acute
Prognosis: stable
Details: Will obtain basic blood work and screening EKG
2. Persistent dysuria and frequency
Acuity: acute
Prognosis: stable
Details: Will obtain urinalysis
Updates
Straight cath revealed urine that was malodorous. Given the leuk esterase in the urine and her prior history, will restart cefepime and admit
Creatinine uptrending due to poor p.o. intake
Differential Diagnosis (but not limited to): UTI, hyponatremia, dehydration
Testing considered: CT abdomen/pelvis but no significant abdominal tenderness noted
Drug therapy (if applicable): OTC meds, please see d/c instruction regarding Rx drugs
Amount and/or Complexity of Data Reviewed
Clinical info obtained from: Patient and
External data reviewed: Prior admission for UTI requiring cefepime
Labs I independently reviewed (but not limited to): Leukocytosis, elevated creatinine
Radiology: N/A
Pulse Ox: not hypoxic
EKG independently reviewed: N/A
Tunnel Elastic [employer] Lock[employer]ch: N/A
Critical Care: N/A
Risk of Complication:
Social Determinants of health: Good social support
Discussed with other providers: Hospitalist
Escalation of Care includes Admit/Obs: Given her urinary symptoms and weakness, will admit
Occasional wrong word or 'sound a like' substitutions may have occurred due to the inherent limitations of voice recognition software. Read the chart carefully and recognize, using context, where substitutions have occurred.
*Critical Care Note
Total Time (30-74mins, 75-104mins- exclusive of procedures): Not Applicable
ED Attending Note
-
Portions of this chart may have been created with voice recognition software.� Occasional wrong word or��sound alike� substitutions may have occurred due to the inherent limitations of voice recognition software.
Discharge Plan
Departure
Patient Disposition: Admit
Date of Disposition: 12/13/24
Time of Disposition: 14:50
Admit to: Med/Surg
Presentation/result/management discussed w/ accepting MD/DO: Hospitalist
Discharge Problem:
Acute UTI, GERRY (acute kidney injury)
Prescriptions:
No Action
docusate sodium 100 mg Tablet
100 mg PO BID
senna 8.6 mg Capsule
8.6 mg PO HS
atorvastatin 10 mg tablet
80 mg PO HS
metformin 1,000 mg tablet
500 mg PO BID AT 0800,1700
atenolol 50 mg tablet
50 mg PO HS
cefdinir 300 mg capsule
300 mg PO BID Qty: 16 0RF
sertraline 50 mg tablet
50 mg PO DAILY
risperidone 0.5 mg tablet
0.5 mg PO HS
lidocaine 4 % Adhesive Patch,Medicated
1 patch topical DAILY 30 Days Qty: 30 0RF
clopidogrel 75 mg Tablet
75 mg PO DAILY 30 Days Qty: 30 0RF
ferrous sulfate [FeroSul] 325 mg (65 mg iron) Tablet
325 mg PO DAILY 30 Days Qty: 30 0RF
acetaminophen [Tylenol Extra Strength] 500 mg Tablet
500 mg PO Q4HPRN PRN (Reason: pain-mild) 3 Days Qty: 100 0RF
cholecalciferol (vitamin D3) 50 mcg (2,000 unit) Tablet
50 mcg PO DAILY 30 Days Qty: 30 0RF
Referrals:
Kaela Herbert DO [Family Provider] -
Interventions
Interventions:
*Risk Screen - Suicide Last Done: 12/13/24 13:09
Discharge Date and Time
Print Language: GRENADIAN
[2024-12-13 14:30] VITALS: BP 109/55
[2024-12-13 14:39] LABS: Urine Albumin 3+ (Neg - Trace); Urine Bilirubin Negative (Negative); Urine Character Clear (Clear); Urine Color Yellow; Urine Glucose Negative (Negative); Urine Ketone Negative (Negative); Urine Leukocyte 3+ (Negative); Urine Nitrite Negative (Negative); Urine Occult Blood 4+ (Negative); Urine Specific Gravity 1.015 (<1.030); Urine Urobilinogen Negative (Neg - 1+)
[2024-12-13 14:54] LABS: Urine White Cell >100 /HPF (0-5)
--- NOTE | 2024-12-13 14:54 | HPS.HSE ---
Family Physician
-
Family Physician: Kaela Herbert
Chief Complaint
-
generalized weakness
History of Present Illness
79-year-old female with PMH for CVA with left-sided weakness, fall complicated by hip fracture status post, CKD, hypertension presented to us with generalized weakness for past 2 days. As per she was nauseous and vomiting for past 2 days.
Poor appetite. She was complaining of generalized pain. Patient noted confused. Since last night she was complaining of burning with urination. Patient denied any blood in the urine. Patient denied any headache blurred complained of
dizziness. Denied any syncope. Patient denied any fever, chills, congestion, cough, chest pain, short of breath. Patient denied any abdominal pain, diarrhea or constipation.
On arrival she was noted sepsis with elevated WBCs, tachypneic. Patient positive for UA. Patient received IV cefepime in ER. Admitted for further management
Medical History
Past Medical History
Past Medical History: Reports Other
Additional Past Medical History:
CVA, HTN, Hypercholesterolemia, NIDDM and Renal Failure (CKD 3)
Past Surgical History: Reports Other
Additional Past Surgical History:
Left ORIF
Social History
Tobacco: Non-smoker
Alcohol: None
Drug: None
Personal:
Living: With Family
Family History
Family History: Not pertinent
Allergies / Home Medications
Allergies reflects when Allergies were last updated in [employer].
Home Medications with original date entered in [employer]
Allergy/Medication List:
Allergies
Allergy/AdvReac Type Severity Reaction Status Date / Time
No Known Allergies Allergy Verified 12/13/24 13:09
Home Medications
clopidogrel 75 mg tablet 75 mg PO DAILY CVA 30 days #30 tabs 03/26/24
ferrous sulfate 325 mg (65 mg iron) tablet (FeroSul) 325 mg PO DAILY anemia 30 days #30 tabs 03/26/24
atenolol 50 mg tablet 50 mg PO DAILY Blood pressure 10/05/24
metformin 1,000 mg tablet 1,000 mg PO BID@0800,1700 diabetes 10/05/24
sennosides 8.6 mg capsule (senna) 8.6 mg PO HS Constipation 10/05/24
atorvastatin 80 mg tablet 80 mg PO HS 12/13/24
glimepiride 4 mg tablet 4 mg PO DAILY 12/13/24
methenamine hippurate 1 gram tablet 1 g PO DAILY 12/13/24
risperidone 0.25 mg tablet 0.25 mg PO HS 12/13/24
vibegron 75 mg tablet (Gemtesa) 75 mg PO DAILY 12/13/24
Review of Systems
-
Constitutional: Reports Fatigue
EENT: Reports No Symptoms
Respiratory: Reports No Symptoms
Cardiac: Reports No Symptoms
Abdomen/GI: Reports Nausea and Vomiting
: Reports No Symptoms
Musculoskeletal: Reports Muscle Pain
Skin: Reports No Symptoms
Neurological: Reports Headache and Weakness
Endocrine: Reports No Symptoms
Hematologic/Lymphatic: Reports No Symptoms
Psych: Reports No Symptoms
Physical Exam
Vital Signs
Vital Signs
Temp Pulse Resp BP Pulse Ox
98.4 F 77 22 109/55 99
12/13/24 13:09 12/13/24 14:45 12/13/24 14:45 12/13/24 14:30 12/13/24 14:45
Physical Exam
General: Well Developed, Well Nourished and No Apparent Distress
HEENT: NormoCephalic, Moist mucous membranes and Atraumatic
Respiratory: Clear
Cardiac: S1/S2 and Regular Rhythm; No Murmur or Rub
GI: Soft, Non Tender, Non Distended and Normal Bowel Sounds; No Organomegaly
Rectal: Deferred by Provider
Musculoskeletal: No Clubbing, No Cyanosis and Other (Lower extremities edema)
Skin: Rash
Neuro: AO x 3 and Nonfocal/grossly intact
Psych: Calm
Laboratory Results
-
12/13/24 13:20
12/13/24 13:20
Laboratory Results
Total Bilirubin 1.1 mg/dl (0.2-1.3) 12/13/24 13:20
AST 18 U/L (14-36) 12/13/24 13:20
ALT 19 U/L (0-35) 12/13/24 13:20
Alkaline Phosphatase 49 U/L (38-126) 12/13/24 13:20
Data Reviewed
-
Lab Data: Labs Reviewed by me
Impression/Plan
-
#urinary tract infection
-Sepsis as evidenced by WBC 14.4, tachypnea
- Urine culture sent from ER
- IV cefepime continued
- Tylenol as needed for pain, fever
- PT OT consulted for general weakness, fatigue
#acute kidney injury likely dehydration
- Normal saline continued
- BMP in a.m.
# Anemia of chronic disease
- Hemoglobin stable at 11.9
- Continue to monitor
- No active bleeding
#Hx of CVA
- continue Plavix/Statin
#Essential HTN
- continue BB
#Type 2 DM
- continue Metformin, glimepiride
- SSI
- CHO diet
Hx of insomnia on Risperdal
DVT ppx: Heparin subcu
Code: Full
[2024-12-13 14:59] LABS: Urine Bacteria Moderate (Negative); Urine Squamous Cell 0-2 /LPF (Few)
--- NOTE | 2024-12-13 15:20 | W.PN.UPDATE ---
Update Note
Progress Note Update
This note serves as an addendum to the H&P by crystal lapper GAIL Honey [place]
HPI
79F HX recurrent UTI, called 911 for UTI symtoms. HX 5 different ABxs for UTI over the last 2 months .
- report urine incontinence
- weak and confused
PHX; see above
Reviewed VS:
Selected VS
12/13/24
13:09 12/13/24
14:31
Temp 98.4 F
Resp Rate 20 21
Blood pressure 111/72
Labs
10/08/24 12/13/24
06:40 13:20
WBC 14.4 H
Hgb 8.5 L 11.0 L
PE
Gen: NAD, conversant
HEENT: anicteric
Neck: supple
Lungs: CTA
Cor: RRR S1 S2
Abdomen: soft abdomen
AUTOMOTIVE UPHOLSTERER: AAAO3
MS: no edema
Psych: nl mood and affect
UCX sent
Last hospitalist admission:
DATE OF ADMISSION: 10/05/2024 - DATE OF DISCHARGE: 10/09/2024
DISCHARGE DIAGNOSIS:
1. Severe sepsis (POA) from recurrent UTI. Discharged on Ceftin for 8 days. Urine culture here negative. CT negative.
Patient for uro-gusset ripper testing.
2. Hyponatremia, resolved with IV fluids.
3. Acute on chronic anemia, stable on oral iron.
ASSESSMENT & PLAN
SIR ( RR > 20, WCC 14)
AMS and weakness due to N/V , poor PO intake
Leucocytosis
Evaluate for UTI - pending UA
Sep 2024 : HX Severe sepsis from recurrent UTI, HX 10 days Abx Cefdinir
- HX multiple UTIs since March 2024 treated with Augmentin, Bactrim, Keflex.
- NEG UCX in Sep due to oral ABx prior to ER visit
- 10/05/24 CT Abd/Pel without contrast negative. no evidence of obstructive uropathy
- Empiric IV CFP
- f/u UA and UCx
- Has OP FU with Dr Lilliam Muhammad [employer]ro[employer] ([place] ) s/p cystoscopy and ? uro-dynamic testing
- PT/OT
GERRY Cr 1.2 ( baseline is 0.8, eGFR > 60 )
- IV NS
- Trend Cr
Current Hgb 11 may be due to hemoconcentration
Chr anemia with baseling Hgb is 8s
- f/u Hgb in response to IV NS
HX CVA on aspirin and Plavix.
HX Essential hypertension, on beta breanna.
HX Type 2 diabetes, on metformin, A1c 5.2%.
HX insomnia, on Risperdal.
DVT Px: SQH
Full code
IP MS
[2024-12-13] MEDS: MAXIPIME 1000 MG IV ×2 (15:29→23:12)
[2024-12-13] MEDS: NSS 1000 IV ×2 (15:29→17:52)
[2024-12-13 17:01] VITALS: BP 188/84; BMI 22.4
[2024-12-13 17:10] LABS: Glucose - Point of Care 107 mg/dl (70-99)
[2024-12-13] MEDS: NOVOLOG FLEXPEN-LOW RESISTANCE SC (17:40)
[2024-12-13] MEDS: GLUCOPHAGE 1000 MG PO (18:03)
--- NOTE | 2024-12-13 18:10 | PTCARENOTE ---
Arrived to unit and pulled over to bed. Bed alarm intact. AAOx2. Call mendez within reach. Oriented to room.
[2024-12-13] MEDS: RISPERDAL 0.25 MG PO (19:52)
[2024-12-13] MEDS: HEPARIN 5000 UNITS SC (19:52)
[2024-12-13] MEDS: LIPITOR 80 MG PO (20:03)
[2024-12-13] MEDS: SENOKOT 8.6 MG PO (20:04)
[2024-12-13] MEDS: TYLENOL 650 MG PO (20:06)
[2024-12-13 22:04] LABS: Glucose - Point of Care 166 mg/dl (70-99)
[2024-12-13] MEDS: STERILE WATER FOR INJECTION 10 ML IV (23:12)
[2024-12-13 23:14] VITALS: BP 143/68
[2024-12-14] MEDS: TYLENOL 650 MG PO ×3 (02:47→20:28)
[2024-12-14] MEDS: NSS 1000 IV ×2 (06:15→18:37)
[2024-12-14 07:29] LABS: Mean Corp Hgb Conc. 33.3 g/dL (33.0-37.0); Mean Corpuscular Hgb 27.8 pg (27.0-31.0); Mean Corpuscular Volume 83.3 fL (81.0-99.0); Mean Platelet Volume 10.2 fL (7.4-10.4); Platelet Count 145 10^3/uL (130-400); Red Blood Cell Count 3.96 10^6/uL (4.20-5.40); Red Cell Dist. Width 14.4 % (11.5-14.5); White Blood Cell Count 10.6 10^3/uL (4.8-10.8)
[2024-12-14 07:40] VITALS: BP 145/65
[2024-12-14 07:46] LABS: Glucose - Point of Care 96 mg/dl (70-99)
[2024-12-14] MEDS: NOVOLOG FLEXPEN-LOW RESISTANCE SC (08:19)
[2024-12-14] MEDS: MAXIPIME 1000 MG IV (08:20)
[2024-12-14] MEDS: STERILE WATER FOR INJECTION 10 ML IV ×2 (08:20→15:00)
[2024-12-14] MEDS: TENORMIN 50 MG PO (08:21)
[2024-12-14] MEDS: PLAVIX 75 MG PO (08:21)
[2024-12-14] MEDS: HEPARIN 5000 UNITS SC ×2 (08:21→20:25)
[2024-12-14] MEDS: FEOSOL 325 MG PO (08:21)
[2024-12-14] MEDS: AMARYL 4 MG PO (08:35)
[2024-12-14] MEDS: GLUCOPHAGE 1000 MG PO ×2 (08:35→17:27)
[2024-12-14 09:10] VITALS: BP 143/71; PULSE 94
[2024-12-14 09:12] VITALS: BP 143/71; PULSE 94
[2024-12-14 10:24] LABS: Glycohemoglobin (HgbA1c) 8.3 % (4.0-5.6)
[2024-12-14 11:36] LABS: Glucose - Point of Care 231 mg/dl (70-99)
[2024-12-14] MEDS: NOVOLOG FLEXPEN-LOW RESISTANCE 2 UNITS SC ×2 (12:06→17:27)
--- NOTE | 2024-12-14 12:12 | CM ---
Patient sleeping, spouse bedside. Initial assessment completed. Patient is a 79-year-old female with PMH for CVA with left-sided weakness, fall complicated by hip fracture status post, CKD, hypertension presented to us with generalized weakness.
Patient resides w/ spouse in a single story home- 2 steps to enter. Patient ambulates w/ RW, has w/c, raised toilet seat, shower chair, and grab bar. Spouse shared he does assist w/ patient w/ ADLs sometimes as she had hip surgery 3 month ago but
primarily patient is independent. Patient prev was at [facility], [facility], and [facility] rehab in the past. No HC hx reported.
PCP: Kaela Herbert
Pharmacy: [facility]
Therapy assessed patient and is recommending skilled rehab at d/c. CM discussed w/ spouse if he prefers any facilities to refer to, he shared that he would like to see how patient progresses first. CM will discuss w/ spouse facilities and place
referrals
Plan: SNF recommended
--- NOTE | 2024-12-14 12:37 | W.PN.HOSP.TC ---
Today's Communication/Plan
-
Infectious disease consult
Assessment / Plan
Assessment / Plan
Impression:
79-year-old female with PMH for CVA with left-sided weakness, fall complicated by hip fracture status post, CKD, hypertension presented to us with generalized weakness for past 2 days. As per she was nauseous and vomiting for past 2 days.
Poor appetite. She was complaining of generalized pain. Patient noted confused, admitted and treated for UTI.
Infectious disease consult.
Assessment/plan:
Sepsis secondary to urinary tract infection
-Sepsis as evidenced by WBC 14.4, tachypnea
- Urine culture sent from ER still pending
- IV cefepime continued
- Tylenol as needed for pain, fever
- PT OT consulted for general weakness, fatigue
Infectious risk
Acute kidney injury likely dehydration
Resolved
Anemia of chronic disease
- Hemoglobin stable at 11.9
- Continue to monitor
- No active bleeding
#Hx of CVA
- continue Plavix/Statin
#Essential HTN
- continue BB
#Type 2 DM
- continue Metformin, glimepiride
- SSI
- CHO diet
Hx of insomnia on Risperdal
CODE STATUS: Full code
DVT prophylaxis: heparin
Diet: Regular diet
Total time spent on today's encounter was 65 minutes which included time spent in counseling the patient/family regarding diagnosis and treatment plan as listed above, goals of care, and symptom management. Case was discussed with nursing staff,
specialists, and care coordinators/case management. All labs and imaging personally reviewed by me. Remainder the time spent in detailed review of previous records, lab data, imaging, and other medical provider documentation.
Anticipated Discharge: 24 - 48 hours
Subjective/Interval History
-
Date of Service: December 14, 2024
Patient seen and examined at bedside, later discussed with , admitted overnight with confusion secondary to UTI, denies any chest pain or shortness of breath.
Objective Data
-
Labs:
Laboratory Results
12/14/24
07:17
WBC 10.6
Hgb 11.0 L
Hct 33.0 L
Plt Count 145
Vital Signs:
Vital Signs
Temp Pulse Resp BP Pulse Ox
97.4 F 88 18 145/65 97
12/14/24 07:40 12/14/24 07:40 12/14/24 07:40 12/14/24 07:40 12/14/24 07:40
I&O
12/13/24 12/14/24 12/15/24
06:59 06:59 06:59
Intake Total 360 / 360
Balance 360 / 360
Physical Exam
-
General: Well Developed, Well Nourished, No Apparent Distress and Comfortable
HEENT: Normocephalic, Atraumatic, Moist Mucous Membranes, No Ptosis, PERRLA and Nose Appears Normal
Respiratory: Clear to Auscultation and Non Labored Respirations
Cardiac: Regular Rhythm and S1/S2
Breast: Deferred by me
GI: Soft, Nontender, Nondistended and Normal Bowel Sounds
Genito-urinary: No Costovertebral Tender
Musculoskeletal: No Clubbing, No Cyanosis and No Edema
Skin: Warm
Neuro: Awake, Alert and Oriented
Psych: Calm
Data Reviewed
-
Diagnostic Radiology: Image personally visualized and interpreted and Report Reviewed by me
CT Scan: Image personally visualized and interpreted and Report Reviewed by me
Ultrasound: Image personally visualized and interpreted and Report Reviewed by me
MRI: Image personally visualized and interpreted and Report Reviewed by me
Medical Tests (Nuc Med, Echo etc): Image personally visualized and interpreted and Report Reviewed by me
Labs: Labs Reviewed by me
Old Records: Reviewed
[2024-12-14] MEDS: NON-FORMULARY ITEM 50 MG PO (12:42)
--- NOTE | 2024-12-14 14:06 | CON.ID ---
Consultation
-
Date/Time Consultation Requested: December 14, 2024 1243
Date/Time Consultation Performed: December 14, 2024 1400
Requesting Provider: Dr. Berny Sosa
Performing Provider: Dr. Cait Jimenez
Reason for Consultation: UTI
Chief Complaint / Past History
Chief Complaint
Weakness and change in mental status
History of Present Illness
79-year-old female with history of diabetes mellitus, CVA, CKD 3, recurrent UTI who presented to the hospital December 13 due to 2-day history of weakness and confusion. Patient also complaining of burning with urination. White count 14.4. Urine
culture growing gram-negative rods. She is currently on cefepime. Patient reports dysuria is better today. She just had bowel movement and able to void better. She did have fevers and chills.
Past History
Additional Past Medical History:
Diabetes mellitus
CVA with left-sided weakness
CKD 3
Recurrent UTI
Hypertension
Insomnia
Additional Past Surgical History:
Left hip fracture ORIF
Allergy History:
No Known Allergies Allergy (Verified 12/13/24 13:09)
Medications Reviewed: Yes
Current Antibiotics:
Cefepime
Social History
Tobacco: Non-Smoker
Alcohol: None
Drug: None
Personal:
Living: With Family
Family History
Family History: Not Pertinent
Review of Systems
Review of Systems
General: Fever, Chills and Change in Appetite
HEENT: Negative Sinus Problems or Headache
Cardiovascular: Negative Chest Pain
Respiratory: Negative Dyspnea or Cough
Gasteroenterology: Negative Nausea, Vomiting or Diarrhea
Genital / Urological: Dysuria; Negative Flank Pain
Endocrine: Weakness
All systems: All other systems were reviewed and were negative
Vital Signs
Temp Pulse Resp BP Pulse Ox
97.4 F 88 18 145/65 97
12/14/24 07:40 12/14/24 07:40 12/14/24 07:40 12/14/24 07:40 12/14/24 07:40
Physical Exam
Physical Exam
Constitutional: Comfortable and Chronically Ill
Eyes: No Conjunctival Hemorrhage and Sclera Anicteric
Cardiovascular: Regular Rate and S1/S2
Pulmonary: Clear
Gastrointestinal: Soft, Non Tender, Non Distended and Normal Bowel Sounds
Genito-Urinary: Negative CVA Tenderness
Extremities: Negative Edema
Neurological: Awake and Alert
Lab / Diagnostic Study Results
12/14/24 07:17
12/13/24 13:20
Abs Immat Gran (auto) 0.1 10^3/uL (0-0.05) H 12/13/24 13:20
Absolute Neuts (auto) 11.7 10^3/uL (1.4-6.5) H 12/13/24 13:20
Absolute Lymphs (auto) 1.5 10^3/uL (1.2-3.4) 12/13/24 13:20
Absolute Monos (auto) 1.1 10^3/uL (0.1-0.6) H 12/13/24 13:20
Absolute Basos (auto) 0.0 10^3/uL (0-0.2) 12/13/24 13:20
Immature Gran % 0.5 % (0-0.5) 12/13/24 13:20
Neutrophils % 81.2 % (42.2-75.2) H 12/13/24 13:20
Lymphocytes % 10.6 % (20.5-51.1) L 12/13/24 13:20
Monocytes % 7.4 % (1.7-9.3) 12/13/24 13:20
Eosinophils % 0.1 % (0-6) 12/13/24 13:20
Basophils % 0.2 % (0-2) 12/13/24 13:20
Ur Squamous Epith Cells 0-2 /LPF (Few) 12/13/24 14:26
Microbiology Results
Micro:
12/13/24 14:26 Urine Culture - Preliminary
Urine Gram negative bacilli
Assessment / Plan
# Symptomatic urinary tract infection.
# Leukocytosis resolved
- Urine culture growing gram-negative sveta
- Review of outpatient multiple urine cultures all with same organism of Klebsiella pneumoniae resistant to Cipro, nitrofurantoin, and doxycycline.
- Narrow cefepime to ceftriaxone.
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
Diabetes mellitus
CVA with left-sided weakness
CKD 3
Recurrent UTI
Hypertension
Insomnia
[2024-12-14] MEDS: ROCEPHIN 1000 MG IV (15:00)
[2024-12-14 15:21] VITALS: BP 133/56
[2024-12-14 16:44] LABS: Glucose - Point of Care 210 mg/dl (70-99)
[2024-12-14] MEDS: LIPITOR 80 MG PO (20:24)
[2024-12-14] MEDS: RISPERDAL 0.25 MG PO (20:25)
[2024-12-14] MEDS: SENOKOT PO (20:25)
[2024-12-14 21:09] LABS: Glucose - Point of Care 104 mg/dl (70-99)
[2024-12-14 23:37] VITALS: BP 164/79
[2024-12-15 03:55] VITALS: BP 145/73
[2024-12-15 06:17] LABS: Hematocrit 28.6 % (37.0-47.0); Hemoglobin 9.3 g/dL (12.0-16.0); Mean Corp Hgb Conc. 32.5 g/dL (33.0-37.0); Mean Corpuscular Hgb 27.4 pg (27.0-31.0); Mean Corpuscular Volume 84.1 fL (81.0-99.0); Mean Platelet Volume 10.5 fL (7.4-10.4); Platelet Count 127 10^3/uL (130-400); Red Cell Dist. Width 14.4 % (11.5-14.5); White Blood Cell Count 6.6 10^3/uL (4.8-10.8)
[2024-12-15 06:44] LABS: Blood Urea Nitrogen 19 mg/dl (7-17); Calcium 7.9 mg/dl (8.4-10.2); Carbon Dioxide 25 mmol/L (22-30); Chloride 110 mmol/L (98-107); Estimated Creatinine Clearance 41 ml/min; Glucose 52 mg/dl (70-99); Potassium 3.8 mmol/L (3.5-5.1); Sodium 140 mmol/L (135-145); eGFR > 60.00
[2024-12-15 07:23] LABS: Glucose - Point of Care 91 mg/dl (70-99)
[2024-12-15] MEDS: TYLENOL 650 MG PO (07:29)
[2024-12-15] MEDS: HEPARIN 5000 UNITS SC ×2 (07:29→20:20)
[2024-12-15] MEDS: PLAVIX 75 MG PO (07:30)
[2024-12-15] MEDS: NON-FORMULARY ITEM 50 MG PO (07:30)
[2024-12-15 07:34] VITALS: BP 131/70
[2024-12-15] MEDS: NOVOLOG FLEXPEN-LOW RESISTANCE SC ×2 (07:39→12:24)
[2024-12-15] MEDS: FEOSOL 325 MG PO (07:40)
[2024-12-15] MEDS: TENORMIN 50 MG PO (07:40)
[2024-12-15] MEDS: GLUCOPHAGE PO (09:09)
[2024-12-15] MEDS: AMARYL PO (09:09)
--- NOTE | 2024-12-15 11:42 | W.PN.ID1 ---
Date of Service
Date of Service: December 15, 2024
Today's Communication
See below.
Assessment / Plan
# Symptomatic urinary tract infection.
# Leukocytosis resolved
# Recurrent UTI
- Further history obtained from . Pt is currently under the care of Dr. Shaw, Uro-Gyne for recurrent UTI.
Per cystoscopy normal. Urodynamic testing mild urinary retention. She was placed on methenamine, vaginal estrogen cream, Ellura, Gemteza.
Per , she drinks plenty of fluid. Practices clean hygiene.
- Urine culture Klebsiella pneumoniae as previous
- Review of outpatient multiple urine cultures all with same organism of Klebsiella pneumoniae resistant to Cipro, nitrofurantoin, and doxycycline.
- Transition ceftriaxone to cephalexin 500 mg po qid through 12/26/24, followed by suppressive cefuroxime 500mg po daily x 3 months.
Discussed risks of termination clerk abx including development of abx resistance, C. diff etc.
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
Diabetes mellitus
CVA with left-sided weakness
CKD 3
Recurrent UTI
Hypertension
Insomnia
Chief Complaint
-: UTI
Subjective / Review of Systems
at bedside.
Dysuria appears to improve.
Vital Signs / Physical Exam
Vital Signs
Vital Signs
Temp Pulse Resp BP Pulse Ox
98.1 F 88 20 131/70 98
12/15/24 07:34 12/15/24 07:34 12/15/24 07:34 12/15/24 07:34 12/15/24 07:34
Physical Exam
Constitutional: No Acute Distress and Comfortable
Cardiovascular: Regular Rate and S1/S2
Pulmonary: Clear
Gastrointestinal: Non Tender, Non Distended and Normal Bowel Sounds
Genito-Urinary: Negative CVA Tenderness
Neurological: Awake and Alert
Objective Data
Lab Data
Lab Results
12/15/24 06:04
12/15/24 06:04
Estimated Creat Clear 41 ml/min 12/15/24 06:04
Total Bilirubin 1.1 mg/dl (0.2-1.3) 12/13/24 13:20
AST 18 U/L (14-36) 12/13/24 13:20
ALT 19 U/L (0-35) 12/13/24 13:20
Alkaline Phosphatase 49 U/L (38-126) 12/13/24 13:20
Most recent labs reviewed.
Micro Results:
12/13/24 14:26 Urine Culture - Final
Urine Klebsiella pneumoniae
Care Review
Plan reviewed with: Physician (Dr. Sosa)
[2024-12-15 12:21] LABS: Glucose - Point of Care 146 mg/dl (70-99)
--- NOTE | 2024-12-15 12:21 | W.PN.HOSP.TC ---
Today's Communication/Plan
-
Medically cleared for discharge
Assessment / Plan
Assessment / Plan
Impression:
79-year-old female with PMH for CVA with left-sided weakness, fall complicated by hip fracture status post, CKD, hypertension presented to us with generalized weakness for past 2 days. As per she was nauseous and vomiting for past 2 days.
Poor appetite. She was complaining of generalized pain. Patient noted confused, admitted and treated for UTI.
Infectious disease consult.
Urine culture came back Klebsiella, infectious disease recommending cephalexin 500 mg po qid through 12/26/24, followed by suppressive cefuroxime 500mg po daily x 3 months.
Assessment/plan:
Sepsis secondary to urinary tract infection
-Sepsis as evidenced by WBC 14.4, tachypnea
- Urine culture sent from ER still pending
- IV cefepime continued
- Tylenol as needed for pain, fever
- PT OT consulted for general weakness, fatigue
Infectious disease consult.
Urine culture came back Klebsiella, infectious disease recommending cephalexin 500 mg po qid through 12/26/24, followed by suppressive cefuroxime 500mg po daily x 3 months.
Acute kidney injury likely dehydration
Resolved
Anemia of chronic disease
- Hemoglobin stable at 11.9
- Continue to monitor
- No active bleeding
#Hx of CVA
- continue Plavix/Statin
#Essential HTN
- continue BB
#Type 2 DM
- continue Metformin, glimepiride
- SSI
- CHO diet
Hx of insomnia on Risperdal
CODE STATUS: Full code
DVT prophylaxis: heparin
Diet: Regular diet
Total time spent on today's encounter was 65 minutes which included time spent in counseling the patient/family regarding diagnosis and treatment plan as listed above, goals of care, and symptom management. Case was discussed with nursing staff,
specialists, and care coordinators/case management. All labs and imaging personally reviewed by me. Remainder the time spent in detailed review of previous records, lab data, imaging, and other medical provider documentation.
Anticipated Discharge: Today
Subjective/Interval History
-
Date of Service: December 15, 2024
Patient seen and examined at bedside, discussed with son at bedside.
Discussed with infectious disease.
Patient cleared for discharge, physical therapy recommending rehab .
denies any chest pain or shortness of breath, no abdominal pain, no nausea, no vomiting, no diarrhea or constipation.
Objective Data
-
Labs:
Laboratory Results
12/15/24
06:04
WBC 6.6
Hgb 9.3 L
Hct 28.6 L
Plt Count 127 L
Sodium 140
Potassium 3.8
Chloride 110 H
Carbon Dioxide 25
BUN 19 H
Creatinine 0.9
Glucose 52 L*
Calcium 7.9 L
Vital Signs:
Vital Signs
Temp Pulse Resp BP Pulse Ox
98.1 F 88 20 131/70 98
12/15/24 07:34 12/15/24 07:34 12/15/24 07:34 12/15/24 07:34 12/15/24 07:34
I&O
12/14/24 12/15/24 12/16/24
06:59 06:59 06:59
Intake Total 1320 / 1320
Balance 1320 / 1320
Physical Exam
-
General: Well Developed, Well Nourished, No Apparent Distress and Comfortable
HEENT: Normocephalic, Atraumatic, Moist Mucous Membranes, No Ptosis, PERRLA and Nose Appears Normal
Respiratory: Clear to Auscultation and Non Labored Respirations
Cardiac: Regular Rhythm and S1/S2
Breast: Deferred by me
GI: Soft, Nontender, Nondistended and Normal Bowel Sounds
Genito-urinary: No Costovertebral Tender
Musculoskeletal: No Clubbing, No Cyanosis and No Edema
Skin: Warm
Neuro: Awake, Alert and Oriented
Psych: Calm
Data Reviewed
-
Diagnostic Radiology: Image personally visualized and interpreted and Report Reviewed by me
CT Scan: Image personally visualized and interpreted and Report Reviewed by me
Ultrasound: Image personally visualized and interpreted and Report Reviewed by me
MRI: Image personally visualized and interpreted and Report Reviewed by me
Medical Tests (Nuc Med, Echo etc): Image personally visualized and interpreted and Report Reviewed by me
Labs: Labs Reviewed by me
Old Records: Reviewed
[2024-12-15 15:17] VITALS: BP 146/80
[2024-12-15] MEDS: ROCEPHIN 1000 MG IV (15:20)
[2024-12-15] MEDS: STERILE WATER FOR INJECTION 10 ML IV (15:20)
[2024-12-15 16:36] LABS: Glucose - Point of Care 268 mg/dl (70-99)
[2024-12-15] MEDS: GLUCOPHAGE 1000 MG PO (16:37)
[2024-12-15] MEDS: NOVOLOG FLEXPEN-LOW RESISTANCE 3 UNITS SC (16:37)
[2024-12-15] MEDS: SENOKOT 8.6 MG PO (20:20)
[2024-12-15] MEDS: LIPITOR 80 MG PO (20:20)
[2024-12-15] MEDS: RISPERDAL 0.25 MG PO (20:20)
[2024-12-15 21:36] LABS: Glucose - Point of Care 125 mg/dl (70-99)
[2024-12-16] VITALS: BP 159/74
[2024-12-16 07:26] LABS: Hematocrit 31.4 % (37.0-47.0); Hemoglobin 10.5 g/dL (12.0-16.0); Mean Corp Hgb Conc. 33.4 g/dL (33.0-37.0); Mean Corpuscular Hgb 28.1 pg (27.0-31.0); Mean Platelet Volume 11.2 fL (7.4-10.4); Platelet Count 152 10^3/uL (130-400); Red Blood Cell Count 3.74 10^6/uL (4.20-5.40); Red Cell Dist. Width 14.3 % (11.5-14.5)
[2024-12-16 07:30] VITALS: BP 151/67
[2024-12-16 07:35] LABS: Glucose - Point of Care 99 mg/dl (70-99)
[2024-12-16] MEDS: NOVOLOG FLEXPEN-LOW RESISTANCE SC (07:51)
[2024-12-16] MEDS: AMARYL 4 MG PO (07:51)
[2024-12-16] MEDS: HEPARIN 5000 UNITS SC ×2 (07:52→21:27)
[2024-12-16] MEDS: GLUCOPHAGE 1000 MG PO ×2 (07:53→16:52)
[2024-12-16] MEDS: NON-FORMULARY ITEM 50 MG PO (07:53)
[2024-12-16] MEDS: FEOSOL 325 MG PO (07:53)
[2024-12-16] MEDS: TENORMIN 50 MG PO (07:53)
[2024-12-16] MEDS: PLAVIX 75 MG PO (07:53)
[2024-12-16 08:16] LABS: Blood Urea Nitrogen 13 mg/dl (7-17); Calcium 8.6 mg/dl (8.4-10.2); Carbon Dioxide 23 mmol/L (22-30); Chloride 106 mmol/L (98-107); Estimated Creatinine Clearance 41 ml/min; Glucose 84 mg/dl (70-99); Potassium 4.2 mmol/L (3.5-5.1); Sodium 139 mmol/L (135-145); eGFR > 60.00
--- NOTE | 2024-12-16 11:03 | CM ---
Addendum entered by Yeimi Rodriguez RN 12/16/24 17:38:
Spoke with Nhi at [facility] she accepted pt tomorrow after auth.
[facility] [phone]
Dr Allen Clark [facility] [phone]
Report [phone]
fax [phone]
Spoke with and pt in room .
PLAN TO [facility] after auth
Original Note:
PT OT indicate SNF.
Spoke with son he said he will speak with pt and his dad about SNF.
He requested referral for [facility] and [facility] . Referral in care port.
Will need auth
PLAN To SNf after SNF located and auth obtained
[2024-12-16 11:41] LABS: Glucose - Point of Care 194 mg/dl (70-99)
[2024-12-16] MEDS: NOVOLOG FLEXPEN-LOW RESISTANCE 1 UNITS SC (11:48)
--- NOTE | 2024-12-16 12:34 | W.PN.HOSP.TC ---
Today's Communication/Plan
-
Discharge to rehab once available
Assessment / Plan
Assessment / Plan
Impression:
79-year-old female with PMH for CVA with left-sided weakness, fall complicated by hip fracture status post, CKD, hypertension presented to us with generalized weakness for past 2 days. As per she was nauseous and vomiting for past 2 days.
Poor appetite. She was complaining of generalized pain. Patient noted confused, admitted and treated for UTI.
Infectious disease consult.
Urine culture came back Klebsiella, infectious disease recommending cephalexin 500 mg po qid through 12/26/24, followed by suppressive cefuroxime 500mg po daily x 3 months.
Assessment/plan:
Sepsis secondary to urinary tract infection
-Sepsis as evidenced by WBC 14.4, tachypnea
- Urine culture sent from ER still pending
- IV cefepime continued
- Tylenol as needed for pain, fever
- PT OT consulted for general weakness, fatigue
Infectious disease consult.
Urine culture came back Klebsiella, infectious disease recommending cephalexin 500 mg po qid through 12/26/24, followed by suppressive cefuroxime 500mg po daily x 3 months.
Acute kidney injury likely dehydration
Resolved
Anemia of chronic disease
- Hemoglobin stable at 11.9
- Continue to monitor
- No active bleeding
#Hx of CVA
- continue Plavix/Statin
#Essential HTN
- continue BB
#Type 2 DM
- continue Metformin, glimepiride
- SSI
- CHO diet
Hx of insomnia on Risperdal
CODE STATUS: Full code
DVT prophylaxis: heparin
Diet: Regular diet
Total time spent on today's encounter was 65 minutes which included time spent in counseling the patient/family regarding diagnosis and treatment plan as listed above, goals of care, and symptom management. Case was discussed with nursing staff,
specialists, and care coordinators/case management. All labs and imaging personally reviewed by me. Remainder the time spent in detailed review of previous records, lab data, imaging, and other medical provider documentation.
Anticipated Discharge: Today
Subjective/Interval History
-
Date of Service: December 16, 2024
Patient seen and examined at bedside, at bedside, patient denies any chest pain or shortness of breath, no abdominal pain, no nausea, no vomiting, no diarrhea or constipation.
Objective Data
-
Labs:
Laboratory Results
12/16/24
06:21
WBC 5.0
Hgb 10.5 L
Hct 31.4 L
Plt Count 152
Sodium 139
Potassium 4.2
Chloride 106
Carbon Dioxide 23
BUN 13
Creatinine 0.9
Glucose 84
Calcium 8.6
Vital Signs:
Vital Signs
Temp Pulse Resp BP Pulse Ox
98.3 F 77 18 151/67 98
12/16/24 07:30 12/16/24 07:30 12/16/24 07:30 12/16/24 07:30 12/16/24 07:30
I&O
12/15/24 12/16/24 12/17/24
06:59 06:59 06:59
Intake Total 1320 / 1320 720 / 720
Balance 1320 / 1320 720 / 720
Physical Exam
-
General: Well Developed, Well Nourished, No Apparent Distress and Comfortable
HEENT: Normocephalic, Atraumatic, Moist Mucous Membranes, No Ptosis, PERRLA and Nose Appears Normal
Respiratory: Clear to Auscultation and Non Labored Respirations
Cardiac: Regular Rhythm and S1/S2
Breast: Deferred by me
GI: Soft, Nontender, Nondistended and Normal Bowel Sounds
Genito-urinary: No Costovertebral Tender
Musculoskeletal: No Clubbing, No Cyanosis and No Edema
Skin: Warm
Neuro: Awake, Alert and Oriented
Psych: Calm
Data Reviewed
-
Diagnostic Radiology: Image personally visualized and interpreted and Report Reviewed by me
CT Scan: Image personally visualized and interpreted and Report Reviewed by me
Ultrasound: Image personally visualized and interpreted and Report Reviewed by me
MRI: Image personally visualized and interpreted and Report Reviewed by me
Medical Tests (Nuc Med, Echo etc): Image personally visualized and interpreted and Report Reviewed by me
Labs: Labs Reviewed by me
Old Records: Reviewed
[2024-12-16 13:17] VITALS: BP 146/66; BP 153/73
[2024-12-16 13:20] VITALS: BP 146/66; BP 153/73
--- NOTE | 2024-12-16 13:46 | W.PN.ID1 ---
Date of Service
Date of Service: December 16, 2024
Today's Communication
At time of discharge, transition ceftriaxone to cephalexin.
Assessment / Plan
# Symptomatic urinary tract infection.
# Leukocytosis resolved
# Recurrent UTI
- Further history obtained from . Pt is currently under the care of Dr. Shaw, Uro-Gyne for recurrent UTI.
Per cystoscopy normal. Urodynamic testing mild urinary retention. She was placed on methenamine, vaginal estrogen cream, Ellura, Gemteza.
Per , she drinks plenty of fluid. Practices clean hygiene.
- Urine culture Klebsiella pneumoniae as previous
- Review of outpatient multiple urine cultures all with same organism of Klebsiella pneumoniae resistant to Cipro, nitrofurantoin, and doxycycline.
- At time of discharge, transition ceftriaxone to cephalexin 500 mg po qid through 12/26/24, followed by suppressive cefuroxime 500mg po daily x 3 months.
Discussed risks of nursing home abx including development of abx resistance, C. diff etc.
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
Diabetes mellitus
CVA with left-sided weakness
CKD 3
Recurrent UTI
Hypertension
Insomnia
Chief Complaint
-: UTI
Subjective / Review of Systems
at bedside. Pt is very weak. Waiting for PT assessment.
Vital Signs / Physical Exam
Vital Signs
Vital Signs
Temp Pulse Resp BP Pulse Ox
98.3 F 77 18 151/67 98
12/16/24 07:30 12/16/24 07:30 12/16/24 07:30 12/16/24 07:30 12/16/24 07:30
Physical Exam
Constitutional: No Acute Distress and Comfortable
Cardiovascular: Regular Rate and S1/S2
Pulmonary: Clear
Gastrointestinal: Non Tender, Non Distended and Normal Bowel Sounds
Genito-Urinary: Negative CVA Tenderness
Neurological: Awake and Alert
Objective Data
Lab Data
Lab Results
12/16/24 06:21
12/16/24 06:21
Estimated Creat Clear 41 ml/min 12/16/24 06:21
Total Bilirubin 1.1 mg/dl (0.2-1.3) 12/13/24 13:20
AST 18 U/L (14-36) 12/13/24 13:20
ALT 19 U/L (0-35) 12/13/24 13:20
Alkaline Phosphatase 49 U/L (38-126) 12/13/24 13:20
Most recent labs reviewed.
Micro Results:
12/13/24 14:26 Urine Culture - Final
Urine Klebsiella pneumoniae
[2024-12-16 15:08] VITALS: BP 147/63
[2024-12-16] MEDS: STERILE WATER FOR INJECTION 10 ML IV (16:02)
[2024-12-16] MEDS: ROCEPHIN 1000 MG IV (16:02)
[2024-12-16 16:41] LABS: Glucose - Point of Care 250 mg/dl (70-99)
[2024-12-16] MEDS: NOVOLOG FLEXPEN-LOW RESISTANCE 3 UNITS SC (16:53)
[2024-12-16 21:25] LABS: Glucose - Point of Care 191 mg/dl (70-99)
[2024-12-16] MEDS: RISPERDAL 0.25 MG PO (21:28)
[2024-12-16] MEDS: LIPITOR 80 MG PO (21:28)
[2024-12-16] MEDS: SENOKOT 8.6 MG PO (21:28)
[2024-12-16 23:34] VITALS: BP 164/83
[2024-12-17 00:10] VITALS: BP 170/78
[2024-12-17 00:16] VITALS: BP 178/74
[2024-12-17 04:00] VITALS: BP 156/81
[2024-12-17 07:20] LABS: Glucose - Point of Care 94 mg/dl (70-99)
[2024-12-17 07:20] LABS: Hematocrit 31.3 % (37.0-47.0); Hemoglobin 10.4 g/dL (12.0-16.0); Mean Corp Hgb Conc. 33.2 g/dL (33.0-37.0); Mean Corpuscular Hgb 27.8 pg (27.0-31.0); Mean Corpuscular Volume 83.7 fL (81.0-99.0); Platelet Count 178 10^3/uL (130-400); Red Blood Cell Count 3.74 10^6/uL (4.20-5.40); Red Cell Dist. Width 14.1 % (11.5-14.5); White Blood Cell Count 4.4 10^3/uL (4.8-10.8)
[2024-12-17 07:30] VITALS: BP 144/72
[2024-12-17 08:00] LABS: Blood Urea Nitrogen 12 mg/dl (7-17); Calcium 9.4 mg/dl (8.4-10.2); Carbon Dioxide 23 mmol/L (22-30); Chloride 108 mmol/L (98-107); Estimated Creatinine Clearance 46 ml/min; Glucose 97 mg/dl (70-99); Potassium 4.4 mmol/L (3.5-5.1); Sodium 141 mmol/L (135-145); eGFR > 60.00
[2024-12-17] MEDS: NOVOLOG FLEXPEN-LOW RESISTANCE SC (09:18)
[2024-12-17] MEDS: HEPARIN 5000 UNITS SC (09:19)
[2024-12-17] MEDS: PLAVIX 75 MG PO (09:19)
[2024-12-17] MEDS: GLUCOPHAGE 1000 MG PO (09:19)
[2024-12-17] MEDS: TENORMIN 50 MG PO (09:19)
[2024-12-17] MEDS: NON-FORMULARY ITEM 50 MG PO (09:20)
[2024-12-17] MEDS: FEOSOL 325 MG PO (09:20)
[2024-12-17] MEDS: AMARYL 4 MG PO (09:20)
--- NOTE | 2024-12-17 11:49 | W.PN.HOSP.TC ---
Today's Communication/Plan
-
Discharge to rehab once insurance authorization obtained
Assessment / Plan
Assessment / Plan
Impression:
79-year-old female with PMH for CVA with left-sided weakness, fall complicated by hip fracture status post, CKD, hypertension presented to us with generalized weakness for past 2 days. As per she was nauseous and vomiting for past 2 days.
Poor appetite. She was complaining of generalized pain. Patient noted confused, admitted and treated for UTI.
Infectious disease consult.
Urine culture came back Klebsiella, infectious disease recommending cephalexin 500 mg po qid through 12/26/24, followed by suppressive cefuroxime 500mg po daily x 3 months.
Assessment/plan:
Sepsis secondary to urinary tract infection
-Sepsis as evidenced by WBC 14.4, tachypnea
- Urine culture sent from ER still pending
- IV cefepime continued
- Tylenol as needed for pain, fever
- PT OT consulted for general weakness, fatigue
Infectious disease consult.
Urine culture came back Klebsiella, infectious disease recommending cephalexin 500 mg po qid through 12/26/24, followed by suppressive cefuroxime 500mg po daily x 3 months.
Acute kidney injury likely dehydration
Resolved
Anemia of chronic disease
- Hemoglobin stable at 11.9
- Continue to monitor
- No active bleeding
#Hx of CVA
- continue Plavix/Statin
#Essential HTN
- continue BB
#Type 2 DM
- continue Metformin, glimepiride
- SSI
- CHO diet
Hx of insomnia on Risperdal
CODE STATUS: Full code
DVT prophylaxis: heparin
Diet: Regular diet
Total time spent on today's encounter was 65 minutes which included time spent in counseling the patient/family regarding diagnosis and treatment plan as listed above, goals of care, and symptom management. Case was discussed with nursing staff,
specialists, and care coordinators/case management. All labs and imaging personally reviewed by me. Remainder the time spent in detailed review of previous records, lab data, imaging, and other medical provider documentation.
Anticipated Discharge: Today
Subjective/Interval History
-
Date of Service: December 17, 2024
Patient seen and examined at bedside, at bedside, denies any chest pain or shortness of breath, no abdominal pain, no nausea, no vomiting, no diarrhea or constipation.
Objective Data
-
Labs:
Laboratory Results
12/17/24
07:05
WBC 4.4 L
Hgb 10.4 L
Hct 31.3 L
Plt Count 178
Sodium 141
Potassium 4.4
Chloride 108 H
Carbon Dioxide 23
BUN 12
Creatinine 0.8
Glucose 97
Calcium 9.4
Vital Signs:
Vital Signs
Temp Pulse Resp BP Pulse Ox
99.1 F 78 18 144/72 97
12/17/24 07:30 12/17/24 07:30 12/17/24 07:30 12/17/24 07:30 12/17/24 11:21
I&O
12/16/24 12/17/24 12/18/24
06:59 06:59 06:59
Intake Total 720 / 720 840 / 840
Balance 720 / 720 840 / 840
Physical Exam
-
General: Well Developed, Well Nourished, No Apparent Distress and Comfortable
HEENT: Normocephalic, Atraumatic, Moist Mucous Membranes, No Ptosis, PERRLA and Nose Appears Normal
Respiratory: Clear to Auscultation and Non Labored Respirations
Cardiac: Regular Rhythm and S1/S2
Breast: Deferred by me
GI: Soft, Nontender, Nondistended and Normal Bowel Sounds
Genito-urinary: No Costovertebral Tender
Musculoskeletal: No Clubbing, No Cyanosis and No Edema
Skin: Warm
Neuro: Awake, Alert and Oriented
Psych: Calm
Data Reviewed
-
Diagnostic Radiology: Image personally visualized and interpreted and Report Reviewed by me
CT Scan: Image personally visualized and interpreted and Report Reviewed by me
Ultrasound: Image personally visualized and interpreted and Report Reviewed by me
MRI: Image personally visualized and interpreted and Report Reviewed by me
Medical Tests (Nuc Med, Echo etc): Image personally visualized and interpreted and Report Reviewed by me
Labs: Labs Reviewed by me
Old Records: Reviewed
--- NOTE | 2024-12-17 11:52 | W.DCSUMMARY ---
Discharge Summary
Discharge Data
Date of Admission: 12/13/24
Date of Discharge: 12/17/24
-
Pending Results: No
Hospital Course
Hospital course
79-year-old female with PMH for CVA with left-sided weakness, fall complicated by hip fracture status post, CKD, hypertension presented to us with generalized weakness for past 2 days. As per she was nauseous and vomiting for past 2 days.
Poor appetite. She was complaining of generalized pain. Patient noted confused, admitted and treated for UTI.
Infectious disease consult.
Urine culture came back Klebsiella, infectious disease recommending cephalexin 500 mg po qid through 12/26/24, followed by suppressive cefuroxime 500mg po daily x 3 months
During hospitalization patient was treated from the follwing
Sepsis secondary to urinary tract infection
-Sepsis as evidenced by WBC 14.4, tachypnea
- Urine culture sent from ER still pending
- IV cefepime continued
- Tylenol as needed for pain, fever
- PT OT consulted for general weakness, fatigue
Infectious disease consult.
Urine culture came back Klebsiella, infectious disease recommending cephalexin 500 mg po qid through 12/26/24, followed by suppressive cefuroxime 500mg po daily x 3 months.
Acute kidney injury likely dehydration
Resolved
Anemia of chronic disease
- Hemoglobin stable at 11.9
- Continue to monitor
- No active bleeding
#Hx of CVA
- continue Plavix/Statin
#Essential HTN
- continue BB
#Type 2 DM
- continue Metformin, glimepiride
- SSI
- CHO diet
Hx of insomnia on Risperdal
CODE STATUS: Full code
DVT prophylaxis: heparin
Diet: Regular diet
Total time spent on today's encounter was 40 minutes which included time spent in counseling the patient/family regarding diagnosis and treatment plan as listed above, goals of care, and symptom management. Case was discussed with nursing staff,
specialists, and care coordinators/case management. All labs and imaging personally reviewed by me. Remainder the time spent in detailed review of previous records, lab data, imaging, and other medical provider documentation.
Anticipated Discharge: Today
Discharge Plan
-
Patient Disposition: Penitentiary/SNF
Discharge Diagnosis/Procedures: Recurrent UTI
Diabetes
Condition: Good
Diet: Diabetic, Carb Controlled
Activity: With assistance and As tolerated
Other Services: PT and OT
Referrals:
Kaela Herbert, [Family Provider] -
Additional Discharge Medication Instructions: cephalexin 500 mg po qid through 12/26/24, followed by suppressive cefuroxime 500mg po daily x 3 months.
Prescriptions:
New
Myrbetriq
50 mg PO DAILY Qty: 0 0RF
cephalexin 500 mg capsule
500 mg PO Q6H 12 Days Qty: 48 0RF
Rx Instructions:
cephalexin 500 mg po qid through 12/26/24, followed by suppressive cefuroxime 500mg po daily x 3 months.
Continued
senna 8.6 mg Capsule
8.6 mg PO HS
metformin 1,000 mg tablet
1,000 mg PO BID@0800,1700
atenolol 50 mg tablet
50 mg PO DAILY
atorvastatin 80 mg tablet
80 mg PO HS
risperidone 0.25 mg tablet
0.25 mg PO HS
methenamine hippurate 1 gram tablet
1 g PO DAILY
glimepiride 4 mg tablet
4 mg PO DAILY
clopidogrel 75 mg Tablet
75 mg PO DAILY 30 Days Qty: 30 0RF
ferrous sulfate [FeroSul] 325 mg (65 mg iron) Tablet
325 mg PO DAILY 30 Days Qty: 30 0RF
Discontinued
Gemtesa 75 mg Tablet
75 mg PO DAILY
Patient Comments:
12/13/2024: Pt recieved samples, once samples are done pt to switch to Myrbetriq 50mg Daily
Discharge Orders:
Discharge Patient (As Directed); Ordered 12/16/24
Ordered By: Berny Sosa
Discharge Date and Time
Print Language: SOUTH AFR[place]
--- NOTE | 2024-12-17 11:55 | W.PN.ID1 ---
Date of Service
Date of Service: December 17, 2024
Today's Communication
At time of discharge, transition ceftriaxone to cephalexin 500 mg po qid through 12/26/24, followed by suppressive cefuroxime 500mg po daily x 3 months.
Assessment / Plan
# Symptomatic urinary tract infection.
# Leukocytosis resolved
# Recurrent UTI
- Further history obtained from . Pt is currently under the care of Dr. Shaw, Uro-Gyne for recurrent UTI.
Per cystoscopy normal. Urodynamic testing mild urinary retention. She was placed on methenamine, vaginal estrogen cream, Ellura, Gemteza.
Per , she drinks plenty of fluid. Practices clean hygiene.
- Urine culture Klebsiella pneumoniae as previous
- Review of outpatient multiple urine cultures all with same organism of Klebsiella pneumoniae resistant to Cipro, nitrofurantoin, and doxycycline.
- At time of discharge, transition ceftriaxone to cephalexin 500 mg po qid through 12/26/24, followed by suppressive cefuroxime 500mg po daily x 3 months.
Discussed risks of ferry terminal agent abx including development of abx resistance, C. diff etc.
- Awaiting SNF rehab placement.
# Conditions BEATER OUT
Diabetes mellitus
CVA with left-sided weakness
CKD 3
Recurrent UTI
Hypertension
Insomnia
Chief Complaint
-: UTI
Subjective / Review of Systems
at bediside.
Appetite better.
No dysuria.
Vital Signs / Physical Exam
Vital Signs
Vital Signs
Temp Pulse Resp BP Pulse Ox
99.1 F 78 18 144/72 97
12/17/24 07:30 12/17/24 07:30 12/17/24 07:30 12/17/24 07:30 12/17/24 11:21
Physical Exam
Constitutional: No Acute Distress, Comfortable and Chronically Ill
Cardiovascular: Regular Rate and S1/S2
Pulmonary: Clear
Gastrointestinal: Non Tender, Non Distended and Normal Bowel Sounds
Genito-Urinary: Negative CVA Tenderness
Neurological: Awake and Alert
Objective Data
Lab Data
Lab Results
12/17/24 07:05
12/17/24 07:05
Estimated Creat Clear 46 ml/min 12/17/24 07:05
Total Bilirubin 1.1 mg/dl (0.2-1.3) 12/13/24 13:20
AST 18 U/L (14-36) 12/13/24 13:20
ALT 19 U/L (0-35) 12/13/24 13:20
Alkaline Phosphatase 49 U/L (38-126) 12/13/24 13:20
Most recent labs reviewed.
Micro Results:
12/13/24 14:26 Urine Culture - Final
Urine Klebsiella pneumoniae
--- NOTE | 2024-12-17 12:24 | CM ---
entered order for discharge.
Chelo Avalos assisted and obtained auth for [facility] for 7 days skilled days from 12/17/24 to 12/23/24 Auth is [id number].
Ambulance auth [id number].
Gabi at [facility] notified .
and pt notified.
[facility]
Report [phone]
fax [phone]
PLAN TO [facility]
--- NOTE | 2024-12-17 12:37 | CM ---
entered order for discharge.
Chelo Avalos assisted and obtained auth for [facility] for 7 days skilled days from 12/17/24 to 12/23/24 Auth is [id number].
Ambulance auth [id number].
Gabi at [facility] notified .
and pt notified.
[facility]
Report [phone]
fax [phone]
PLAN TO [facility]
[2024-12-17 12:45] VITALS: BP 140/80
[2024-12-17 12:50] LABS: Glucose - Point of Care 222 mg/dl (70-99)
[2024-12-17] MEDS: NOVOLOG FLEXPEN-LOW RESISTANCE 3 UNITS SC (13:14)
[2024-12-17] MEDS: VISBIOME 2 CAP PO (13:14)
== END 2024-12-17 13:56 | DRG 872 ==
LOC: 4 EAST ACU 16:01
PROVIDERS: Emergency Medicine; Registered Nurse; ADMITTING PHYSICIAN Internal Medicine; ATTENDING PHYSICIAN General Practice; CONSULT PHYSICIAN Internal Medicine Infectious Disease; EMERGENCY PHYSICIAN Student in an Organized Health Care Education/Training Program; FAMILY PHYSICIAN Family Medicine
DX: A41.9 Sepsis, unspecified organism (principal); N39.0 Urinary tract infection, site not specified; I69.354 Hemiplegia and hemiparesis following cerebral infarction affecting left non-dominant side; N17.9 Acute kidney failure, unspecified; E87.1 Hypo-osmolality and hyponatremia; E86.0 Dehydration; D63.1 Anemia in chronic kidney disease; Z79.02 Long term (current) use of antithrombotics/antiplatelets; I12.9 Hypertensive chronic kidney disease with stage 1 through stage 4 chronic kidney disease, or unspecified chronic kidney disease; N18.30 Chronic kidney disease, stage 3 unspecified; G47.00 Insomnia, unspecified; E11.22 Type 2 diabetes mellitus with diabetic chronic kidney disease; Z79.84 Long term (current) use of oral hypoglycemic drugs; E78.00 Pure hypercholesterolemia, unspecified; R65.20 Severe sepsis without septic shock; Z87.440 Personal history of urinary (tract) infections
CPT/HCPCS: 51701; 80048; 80053; 81003; 81015; 82962; 83036; 85025; 85027; 87077; 87086; 87186; 93005; 96361; 96374; 97162; 97166; 97530; 97535; 99285

== ENCOUNTER 2025-06-10 11:32 | Emergency (ER) | payer OTHER, SELFPAY ==
[2025-06-10 11:34] VITALS: BP 147/72
[2025-06-10 12:14] LABS: Hematocrit 37.7 % (37.0-47.0); Hemoglobin 12.3 g/dL (12.0-16.0); Mean Corp Hgb Conc. 32.6 g/dL (33.0-37.0); Mean Corpuscular Volume 88.3 fL (81.0-99.0); Nucleated Red Blood Cells % 0 %; Platelet Count 199 10^3/uL (130-400); Red Cell Dist. Width 14.1 % (11.5-14.5)
[2025-06-10 12:38] LABS: ALT (SGPT) 24 U/L (0-35); AST (SGOT) 21 U/L (14-36); Albumin 4.3 g/dl (3.5-5.0); Alkaline Phosphatase 57 U/L (38-126); Blood Urea Nitrogen 26 mg/dl (7-17); Calcium 11.2 mg/dl (8.4-10.2); Carbon Dioxide 32 mmol/L (22-30); Chloride 102 mmol/L (98-107); Glucose 160 mg/dl (70-99); Potassium 4.3 mmol/L (3.5-5.1); Sodium 135 mmol/L (135-145); Total Protein 7.4 g/dl (6.3-8.2); eGFR 51.11
[2025-06-10 13:12] VITALS: BP 129/55
[2025-06-10 13:24] VITALS: BMI 22.6
[2025-06-10 13:58] LABS: Urine Character Clear (Clear)
[2025-06-10 14:00] VITALS: BP 132/62
--- NOTE | 2025-06-10 14:06 | ED.GENMED ---
History of Present Illness
General
Chief Complaint: Urinary Symptoms
Source: patient
Exam Limitations: none
Time Seen by Provider: 06/10/25 13:45
Nursing documentation reviewed up to this point in time: agreed with
History of Present Illness
History of Present Illness:
80-year-old female with past medical history of frequent UTI, stroke chronic kidney disease hypertension brought by for evaluation. is assisting with translation as patient has broken Thai. reports patient was diagnosed
with UTI on Monday by PCP and has been on cefuroxime however still is weak. reports patient really walks with a walker however now having a hard time getting up on her own. No fevers. Reports patient typically does not have normal UTI
symptoms she usually presents with weakness.
reports no fevers, no URI s/s. she is eating/drinking.
No cp no shortness of breath.
Past History
Past History
ED Past Medical History: CVA, HTN, Hypercholesterolemia, NIDDM and Other (Frequent UTIs)
ED Past Surgical History: and Orthopedic (Laminectomy; left hip fracture repair)
Social History
Tobacco: Non-smoker
Alcohol: None
Drug: None
Personal:
Living: with family
Family History
Family History: Other (Noncontributory)
Phy Exam
General Physical Exam
General Presentation: no apparent distress
General age: appears stated age
General Skin: warm and dry
General Habitus: normal
General Mental: alert
General Hydration: appears well hydrated
Cardiovascular Exam
Cardiovascular Exam: regular rate/rhythm, no murmur and normal peripheral pulses
Pulmonary Exam
Pulmonary Exam: lungs clear and no respiratory distress
Neurological Exam
Neurological Exam: alert and oriented x3
Musculoskeletal Exam
Musculoskeletal Exam: full ROM
Skin Exam
Skin Exam: normal color and warm/dry
Psychiatric Exam
Psychiatric Exam: normal mood/affect
Course
Orders/Labs/Results
Orders:
Orders
06/10/25 11:53
Complete Blood Count/With Diff Urgent
Comprehensive Metabolic Panel Urgent
06/10/25 13:21
Urinalysis Reflex To Culture Urgent
Date Specimen was Collected: 06/10/25
Time Specimen was Collected: 11:37
Urine Microscopic Reflex Cult Urgent
Urine Culture Urgent
ALIZE Source: U
Specimen Description:
Date Specimen was Collected: 06/10/25
Time Specimen was Collected: 11:37
06/10/25 15:10
0.9% Sodium Chloride 500 ml [Nss] 500 ml IV BOLUS
06/10/25 15:26
COVID-19 Antigen Urgent
Source: Nasal Swab
Influenza A+B Rapid Molecular Urgent
ALIZE Source: Nasal Swab
Specimen Description:
06/10/25 15:34
Add On - Microbiology Urgent
Tests Added?: urine culture
Abnormal Lab Results
06/10/25 06/10/25
11:53 13:21
MCHC 32.6 L g/dL
(33.0-37.0)
MPV 10.6 H fL
(7.4-10.4)
Carbon Dioxide 32 H mmol/L
(22-30)
BUN 26 H mg/dl
(7-17)
Creatinine 1.1 H mg/dL
(0.6-1.0)
Glucose 160 H mg/dl
(70-99)
Calcium 11.2 H mg/dl
(8.4-10.2)
Urine Albumin (Reflex) 1+ A
(Neg - Trace)
06/10/25 11:53
06/10/25 11:53
Vital Signs
Initial and Last Documented VS:
Initial Vital Signs
Temp Pulse Resp BP Pulse Ox
97.4 F 75 16 147/72 100
06/10/25 11:34 06/10/25 11:34 06/10/25 11:34 06/10/25 11:34 06/10/25 11:34
Last Documented Vital Signs
Temp Pulse Resp BP Pulse Ox
97.4 F 68 18 137/62 100
06/10/25 11:34 06/10/25 15:25 06/10/25 15:25 06/10/25 15:25 06/10/25 15:25
Phlebotomy Services Representative consulted with Physician
Phlebotomy Services Representative consulted with physician?: Yes
Name of Physician Consulted: jameson
MDM/Problems Addressed
Differential Diagnosis Includes:
not limited to uti weakness
MDM/Problems Addressed:
80-year-old female presents to the ER for evaluation. Patient has been treated for UTI for the past 4 days with cefuroxime but patient continues to feel weak. Urinalysis negative for infection here. Patient is afebrile with a normal white count.
She is mildly dehydrated however has been drinking here. she is afebrile well appearing.
her wbc is negative. I did review outpatient blood work, urine culture from primary care office which states urine has Enterococcus facialis however again UA negative here.
Patient was able to use walker and ambulate.
She is very well-appearing and has no complaints. She is afebrile with a normal white count stable hemoglobin, BUN/creatinine mildly elevated. She did not have an IV line inserted prior to to my exam however has been able to drink fluids here and
drink water and juice. Otherwise she is very well-appearing COVID flu are negative. I attempted to call the office to arrange follow-up however all of the partners have left for the day. Since patient is very well-appearing labs are unremarkable
here with a negative urinalysis we will send a urine culture however will have patient continue on present antibiotic until seen by primary care physician. I did tell the to call tomorrow morning for an appoint in the next 1 to 2 days and
she is to return for any worsening of symptoms
Chronic conditions affecting care:
Hypertension hyperlipidemia
*Pulse Oximetry
SaO2: 100
Oxygen Mode of Delivery: Room air
Patient hypoxic: no
*Critical Care Note
Total Time (30-74mins, 75-104mins- exclusive of procedures): Not Applicable
ED Attending Note
-
Portions of this chart may have been created with voice recognition software.� Occasional wrong word or��sound alike� substitutions may have occurred due to the inherent limitations of voice recognition software.
Discharge Plan
Departure
Patient Disposition: Home (Routine Discharge)
Date of Disposition: 06/10/25
Time of Disposition: 16:17
Patient with high blood pressure during this ER visit?: Yes
Condition: Fair
Covid-19: Not Applicable
Discharge Problem:
Weakness
Instructions: Weakness - ED (DC), BLOOD PRESSURE
Prescriptions:
No Action
senna 8.6 mg Capsule
8.6 mg PO HS
metformin 1,000 mg tablet
1,000 mg PO BID@0800,1700
atenolol 50 mg tablet
50 mg PO DAILY
atorvastatin 80 mg tablet
80 mg PO HS
risperidone 0.25 mg tablet
0.25 mg PO HS
methenamine hippurate 1 gram tablet
1 g PO DAILY
glimepiride 4 mg tablet
4 mg PO DAILY
Myrbetriq
50 mg PO DAILY Qty: 0 0RF
cephalexin 500 mg capsule
500 mg PO Q6H 12 Days Qty: 48 0RF
Rx Instructions:
cephalexin 500 mg po qid through 12/26/24, followed by suppressive cefuroxime 500mg po daily x 3 months.
clopidogrel 75 mg Tablet
75 mg PO DAILY 30 Days Qty: 30 0RF
ferrous sulfate [FeroSul] 325 mg (65 mg iron) Tablet
325 mg PO DAILY 30 Days Qty: 30 0RF
Referrals:
Kaela Herbert DO [Family Provider, Family Practice]
Activity Restrictions/Additional Instructions:
As discussed patient's urinalysis was negative for infection here and another culture was sent to the lab. Patient was mildly dehydrated but was able to drink fluids here. Patient must increase fluids. Closely follow-up with family doctor the
next 1 to 2 days call Monday for an appointment. Return if any worsening of symptoms of worsening weakness fever chills nausea vomiting or any further concerns.
Interventions
Interventions:
*Risk Screen - Suicide Last Done: 06/10/25 11:33
*General Assessment Last Done: 06/10/25 13:24
*Neglect/Abuse Screening Last Done: 06/10/25 11:37
*ED- Fall Risk Assessment Last Done: 06/10/25 13:24
*ED COVID-19 Vaccine History Last Done: 06/10/25 13:24
*ED Influenza Vaccine History Last Done: 06/10/25 13:24
ED-Female Genitourinary Assessment Last Done: 06/10/25 13:26
Discharge Date and Time
Print Language: CROATIAN
[2025-06-10 14:44] LABS: Urine Red Blood Cell 0-2 /HPF (0-2); Urine Squamous Cell 0-2 /LPF (Few); Urine White Cell 0-2 /HPF (0-5)
[2025-06-10 15:25] VITALS: BP 137/62
[2025-06-10 15:59] LABS: COVID-19 Antigen Negative (Negative)
== END 2025-06-10 16:33 | disposition home or self-care (01) ==
LOC: EMR 11:32
PROVIDERS: Nurse Practitioner; EMERGENCY PHYSICIAN Student in an Organized Health Care Education/Training Program; FAMILY PHYSICIAN Family Medicine
DX: E86.0 Dehydration (principal); R53.1 Weakness; E11.9 Type 2 diabetes mellitus without complications; E78.00 Pure hypercholesterolemia, unspecified; I10 Essential (primary) hypertension; Z86.73 Personal history of transient ischemic attack (TIA), and cerebral infarction without residual deficits; Z11.52 Encounter for screening for COVID-19
CPT/HCPCS: 99283; 80053; 81003; 81015; 85025; 87086; 87502; 87811